=== PATIENT | male | born 1965 | race African-American/Black ===

== ENCOUNTER 2016-06-11 12:11 | Emergency (ER) | payer OTHER ==
[~2016-06-11] VITALS: Ht 182.9 cm; Wt 115.0 kg
[~2016-06-11 12:11] MED LIST: CETI10 PO; CINA30 PO; METO50TA PO; MIRT30TA PO; OMEP20TA39 PO; PAXI20TA26 PO; PERC7.5T13 PO; PYRIDOXINE PO
[2016-06-11 12:26] VITALS: BP 137/84; PULSE 99; RESP 20; TEMP 98.9; O2SAT 93
[2016-06-11 12:30] VITALS: BP 152/88; PULSE 99; RESP 18; TEMP 98.9; O2SAT 94
[2016-06-11] MEDS ORDERED: oxyCODONE/ACETAMINOPHEN 5 MG/325 MG TAB PO ONE (12:45)
[2016-06-11] MEDS ORDERED: ONDANSETRON HCL 4 MG/2 ML VIAL IV PUSH ONE (12:45)
[2016-06-11 13:07] LABS: AUTOMATED NEUTROPHIL # 8.5 TH/MM3 (1.8-7.7); BASOPHIL % 0.2 % (0.0-2.0); EOSINOPHIL # 0.2 TH/MM3 (0-0.4); EOSINOPHIL % 1.8 % (0.0-4.0); HEMATOCRIT 29.9 % (39.0-51.0); HEMO FLAGS DIFF FINAL; LYMPH % 6.8 % (9.0-44.0); LYMPHOCYTE # 0.7 TH/MM3 (1.0-4.8); MEAN CELL VOLUME 97.3 FL (80.0-100.0); MEAN CORPUSCULAR HEMOGLOBIN 31.8 PG (27.0-34.0); MEAN CORPUSCULAR HGB CONC 32.7 % (32.0-36.0); MONO % 7.5 % (0.0-8.0); NEUT % 83.7 % (16.0-70.0); PLATELET COUNT 152 TH/MM3 (150-450); RED BLOOD COUNT 3.07 MIL/MM3 (4.50-5.90); RED CELL DISTRIBUTION WIDTH 14.2 % (11.6-17.2); WHITE BLOOD COUNT 10.1 TH/MM3 (4.0-11.0)
[2016-06-11] MEDS ORDERED: ONDANSETRON ODT 4 MG TAB PO ONE (13:15)
--- NOTE | 2016-06-11 13:18 | RADRPT ---
EXAM DATE/TIME: 06/11/2016 13:16 [facility] COMPARISON: No previous studies available for comparison. INDICATIONS : Fever. Short of breath. MEDICAL HISTORY : Diabetes mellitus type II. Peripheral vascular disease. SURGICAL HISTORY : Renal transplant. ENCOUNTER: Initial ACUITY: 2 days PAIN SCORE: 0/10 LOCATION: Bilateral chest FINDINGS: Linear areas of parenchymal opacity are seen scattered through the right and left lung, probably atel ectasis. Heart is minimally enlarged. Pulmonary vascularity is normal. There is no pleural effusio n or alveolar consolidation. CONCLUSION: Probable atelectatic changes both lungs. Otherwise, negative. Urbano Cordova MD FACR on June 11, 2016 at 13:14 Board Certified Radiologist. This report was verified electronically.
[2016-06-11 13:27] LABS: ALT (GPT) 32 U/L (12-78); ANION GAP 17 MEQ/L (5-15); AST (GOT) 30 U/L (15-37); BICARBONATE 19.9 MEQ/L (21.0-32.0); BLOOD UREA NITROGEN 76 MG/DL (7-18); CHLORIDE 100 MEQ/L (98-107); GLOMERULAR FILTRATION RATE 3 ML/MIN (>89); SODIUM (NA) 137 MEQ/L (136-145)
[2016-06-11 13:28] LABS: ALKALINE PHOSPHATASE 183 U/L (45-117); TOTAL BILIRUBIN ADULT 0.4 MG/DL (0.2-1.0)
[2016-06-11 13:30] LABS: POTASSIUM 5.3 MEQ/L (3.5-5.1)
--- NOTE | 2016-06-11 13:50 | RADRPT ---
EXAM DATE/TIME: 06/11/2016 13:13 [facility] COMPARISON: No previous studies available for comparison. INDICATIONS : Cephalgia, fever, nausea after procedure to remove clot from dialysis shunt. RADIATION DOSE: 56.37 CTDIvol (mGy) MEDICAL HISTORY : Cardiovascular disease. Hypertension. Renal failure, chronic. SURGICAL HISTORY : Left kidney transplant. ENCOUNTER: Initial ACUITY: 1 day PAIN SCALE: 0/10 LOCATION: distal TECHNIQUE: Multiple contiguous axial images were obtained of the head. Using automated exposure control and adj ustment of the mA and/or kV according to patient size, radiation dose was kept as low as reasonably a chievable to obtain optimal diagnostic quality images. FINDINGS: CEREBRUM: The ventricles are normal for age. No evidence of midline shift, mass lesion, hemorrhage or acute in farction. No extra-axial fluid collections are seen. POSTERIOR FOSSA: The cerebellum and brainstem are intact. The 4th ventricle is midline. The cerebellopontine angle i s unremarkable. EXTRACRANIAL: There is high density material within the right globe. This should be correlated clinically if this i s acute or chronic. There is right maxillary, bilateral sphenoid, and bilateral ethmoid sinus disease . There is a small amount of fluid in the left mastoid air cells. SKULL: The calvaria is intact. No evidence of skull fracture. CONCLUSION: 1. No intracranial abnormality seen. 2. High density material throughout the right globe. This should be correlated if this is a known abn ormality were not. If this is acute, it could represent hemorrhage. 3. Sinus disease. Anthony Murdock MD on June 11, 2016 at 13:44 Board Certified Radiologist. This report was verified electronically.
[2016-06-11 14:14] VITALS: RESP 18
[2016-06-11] MEDS ORDERED: diphenhydrAMINE HCL 50 MG/ML VIAL IV PUSH ONE (14:30)
[2016-06-11] MEDS ORDERED: PROCHLORPERAZINE INJ 10 MG/2 ML VIAL IVS ONE (14:30)
[2016-06-11] MEDS ORDERED: SODIUM CHLOR 0.9% 1000 ML INJ 1,000 ML IV PRN ×3 (15:05)
[2016-06-11] MEDS ORDERED: diphenhydrAMINE HCL 25 MG CAP PO PRN (15:15)
[2016-06-11] MEDS ORDERED: ONDANSETRON HCL 4 MG/2 ML VIAL IV PRN (15:15)
[2016-06-11] MEDS ORDERED: SODIUM CHLORIDE 0.9% FLUSH 5 ML FLUSH IVF PRN (15:15)
[2016-06-11] MEDS ORDERED: cloNIDine HCL 0.1 MG TAB PO PRN (15:15)
[2016-06-11] MEDS ORDERED: HEPARIN SODIUM - IV 10,000 UNITS/10 ML VIAL PRN (15:15)
[2016-06-11] MEDS ORDERED: GELATIN 12 MM/7 MM FOAM TOP PRN (15:15)
[2016-06-11] MEDS ORDERED: HEPARIN SODIUM - IV 10,000 UNITS/10 ML VIAL IVF PRN (15:15)
[2016-06-11] MEDS ORDERED: EPOETIN ALFA 10,000 UNITS/ML VIAL IV PRN (15:15)
[2016-06-11] MEDS ORDERED: MANNITOL 12.5 GM/50 ML VIAL IV PRN (15:15)
[2016-06-11] MEDS ORDERED: NITROGLYCERIN 0.4 MG SL 25 TABS/BTL SL PRN (15:15)
[2016-06-11] MEDS ORDERED: ACETAMINOPHEN 325 MG TAB PO PRN (15:15)
[2016-06-11] MEDS ORDERED: GENTAMICIN SULFATE (DIALYSIS USE ONLY) 20 MG/2 ML VIAL IV PRN (15:15)
--- NOTE | 2016-06-11 15:41 | PD.CONS ---
HPI Service Nephrology Consult Requested By Reason for Consult ESRD on HD Primary Care Physician [facility] History of Present Illness This is out 51 y/o AAM dialysis pt who typically dialyzes T-. He had full treatment on , missed Saturday due to access clotting. He had AV graft declotted successfully this morning, but apparently developed rigors without fever immediately after. He was sent in for evaluation. He denies any recent illnesses. Today he is sleeping but easy to awaken. No acute concerns. K 5.3, C02 19, BG 322 mg/dL. We were consulted for dialysis management. 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 (Sho Laughlin) Review of Systems Constitutional: COMPLAINS OF: Fatigue, Chills, DENIES: Fever Respiratory: DENIES: Shortness of breath Cardiovascular: DENIES: Chest pain, Dyspnea on Exertion Neurologic: DENIES: Abnormal gait (Sho Laughlin) Past Family Social History Allergies: Coded Allergies: Darvocet-N 100 (Verified Allergy, Severe, Itching, 11/21/15) Demerol (Verified Allergy, Severe, Itching, 11/21/15) Morphine (Verified Allergy, Severe, Itching, 11/21/15) Lisinopril (Verified Adverse Reaction, Severe, Cough, 11/21/15) Past Medical History ESRD on HD T--Sat anemia of chronic disease metabolic bone disorder DM II anxiety depression Past Surgical History RUE AV graft, declotted multiple times Reported Medications unable to list medications Active Ordered Medications Current Medications Medications (Trade) Dose Ordered Sig/Suzan Route Start Time Stop Time Status Last Admin (NS 1000 ml Inj) 1,000 ml @ 0 mls/hr Q0M PRN IV 06/11/16 15:05 Heparin Sodium (Porcine) 8000 units 8,000 units UNSCH PRN IVF 06/11/16 15:15 Sodium Chloride 1,000 ml @ 200 mls/hr Q5H PRN IV 06/11/16 15:05 (NS 1000 ml Inj) 1,000 ml @ 0 mls/hr Q0M PRN IV 06/11/16 15:05 (Mannitol Inj) 12.5 gm UNSCH PRN IV 06/11/16 15:15 (Albumin 25% Inj) 25 gm UNSCH PRN IV 06/11/16 15:15 (NS Flush) 5 ml UNSCH PRN IVF 06/11/16 15:15 (Heparin Inj) UNSCH PRN .XX 06/11/16 15:15 (Gentamicin (Dialysis) Inj) 20 mg UNSCH PRN IV 06/11/16 15:15 (Zofran Inj) 4 mg UNSCH PRN IV 06/11/16 15:15 (Tylenol) 650 mg UNSCH PRN PO 06/11/16 15:15 (Benadryl) 25 mg UNSCH PRN PO 06/11/16 15:15 (Nitrostat Sl) 0.4 mg UNSCH PRN SL 06/11/16 15:15 (Catapres) 0.1 mg UNSCH PRN PO 06/11/16 15:15 (Epogen Inj) 10,000 units UNSCH PRN IV 06/11/16 15:15 (Gelfoam 12 Mm/7 Mm Top) 1 foam UNSCH PRN TOP 06/11/16 15:15 Family History no hx of renal disorders Social History no smoking or ETOH , lives with retired [employer] functionally independent full code (Sho Laughlin) Physical Exam Vital Signs Vital Signs Date Time Temp Pulse Resp B/P Pulse Ox O2 Delivery O2 Flow Rate FiO2 06/11/16 14:14 18 06/11/16 12:30 97 20 93 Room Air 06/11/16 12:30 98.9 99 18 152/88 94 Room Air 06/11/16 12:26 98.9 99 20 137/84 93 Physical Exam Young appearing AAM, resting on stretcher left eye conjunctival hemorrhage lungs clear S1/S2, regular rhythm no edema RUE AV graft, + thrill/bruit abdomen soft, normal bowel sounds Laboratory Laboratory Tests Test 06/11/16 12:55 White Blood Count 10.1 Red Blood Count 3.07 Hemoglobin 9.8 Hematocrit 29.9 Mean Corpuscular Volume 97.3 Mean Corpuscular Hemoglobin 31.8 Mean Corpuscular Hemoglobin 32.7 Concent Red Cell Distribution Width 14.2 Platelet Count 152 Mean Platelet Volume 9.3 Neutrophils (%) (Auto) 83.7 Lymphocytes (%) (Auto) 6.8 Monocytes (%) (Auto) 7.5 Eosinophils (%) (Auto) 1.8 Basophils (%) (Auto) 0.2 Neutrophils # (Auto) 8.5 Lymphocytes # (Auto) 0.7 Monocytes # (Auto) 0.8 Eosinophils # (Auto) 0.2 Basophils # (Auto) 0.0 CBC Comment DIFF FINAL Differential Comment Sodium Level 137 Potassium Level 5.3 Chloride Level 100 Carbon Dioxide Level 19.9 Anion Gap 17 Blood Urea Nitrogen 76 Creatinine 17.60 Estimat Glomerular Filtration 3 Rate Random Glucose 382 Calcium Level 9.8 Total Bilirubin 0.4 Aspartate Amino Transf 30 (AST/SGOT) Alanine Aminotransferase 32 (ALT/SGPT) Alkaline Phosphatase 183 Total Protein 7.7 Albumin 3.4 (Sho Laughlin) Result Diagram: 06/11/16 1255 06/11/16 1255 Assessment and Plan Problem List: (1) ESRD (end stage renal disease) on dialysis Plan: dialysis today and T-Th-Sat, orders entered K 5.3, follow up BMP tomorrow acidosis should correct with dialysis avoid gadolinium, IVF (2) Rigors Plan: after AVG declotting no fever, may need infection work up could be due to anesthesia (3) DM (diabetes mellitus) Plan: begin insulin therapy, goal 140-180 mg/dL (4) HTN (hypertension) Plan: continue home medications (5) Anemia Plan: epogen with HD (6) Metabolic bone disease Plan: contineu PhosLo per home medications check phos in am (Sho Laughlin) Assessment and Plan patient was seen and examined. No fever in the hospital. Tolerated dialysis well , he was seen during dialysis. Likely will be discharged after dialysis. ( George Childs MD) Sho Laughlin Jun 11, 2016 15:41 George Childs MD Jun 11, 2016 21:17
[2016-06-11] MEDS: ALBUMIN HUMAN 25% 25 GM/100 ML BAGP IV PRN ×2 (16:58→16:59)
[2016-06-11] MEDS ORDERED: CALCIUM ACETATE 667 MG CAP PO SCH (18:00)
--- NOTE | 2016-06-11 19:33 | PD ---
HPI Chief Complaint: Headache Time Seen by Provider: 12:34 Travel History International Travel<30 days: No Contact w/Intl Traveler<30days: No Traveled to known affect area: No History of Present Illness HPI Patient is a 51-year-old male who comes in from the dialysis Center where he was having a clot removed from his fistula. During the procedure he had an episode of rigors and they were concerned he had a fever so they sent him to the emergency department. He has not had any documented fever. He says he was feeling fine prior to going for the procedure. He did receive some sedation for the procedure as well as fentanyl. He had several episodes of vomiting after the procedure. Currently his only complaint is headache. He has not been dialyzed since because of the clot to his fistula. He denies any chest pain or shortness of breath. He denies any abdominal pain. PFSH Past Medical History Anemia: Yes (WITH CHRONIC KIDNEY DISEASE) Arthritis: No Asthma: No Autoimmune Disease: No Anxiety: Yes Depression: Yes Heart Rhythm Problems: No Cancer: No Cardiac Catheterization: Yes Cardiovascular Problems: Yes ([place]) High Cholesterol: No Chest Pain: No Congestive Heart Failure: Yes COPD: No Coronary Artery Disease: Yes Diabetes: Yes Patient Takes Glucophage: No Dialysis: Yes () Diminished Hearing: No Endocrine: No Gastrointestinal Disorders: Yes (REFLUX) GERD: Yes Genitourinary: Yes Hepatitis: No Hiatal Hernia: No Hypertension: Yes Immune Disorder: No Implanted Vascular Access Dvce: Yes (FISTULA RUE) Kidney Stones: No Musculoskeletal: No Neurologic: No Psychiatric: No Reproductive: No Respiratory: No Immunizations Current: Yes Myocardial Infarction: Yes Renal Failure: Yes Sickle Cell Disease: No Sleep Apnea: No Thyroid Disease: No Ulcer: No Tetanus Vaccination: < 5 Years Influenza Vaccination: Yes ?: Not Past Surgical History Abdominal Surgery: Yes (APPEND., ) AICD: No Appendectomy: Yes Arteriovenous Shunt: Yes (old graft) Body Medical Devices: GRAFT BOTH ARMS Cardiac Surgery: No Ear Surgery: No Endocrine Surgery: Yes (av shunt right current, former av shunt site left arm) Eye Surgery: Yes (RIGHT RETINA REPAIR) Genitourinary Surgery: Yes (BILATERAL NEPHRECTOMY, LEFT FRONT KIDNEY TRANSPLANT ) Gynecologic Surgery: No Insulin Pump: No Joint Replacement: No Neurologic Surgery: No Oral Surgery: Yes (TONSILS) Pacemaker: No Thoracic Surgery: No Tonsillectomy: Yes Other Surgery: Yes (GRAFT FOR DIALYSIS, AV FISTULA RIGHT UPPER ARM) Social History Alcohol Use: No Tobacco Use: No Substance Use: No Allergies-Medications (Allergen,Severity, Reaction): Coded Allergies: Darvocet-N 100 (Verified Allergy, Severe, Itching, 11/21/15) Demerol (Verified Allergy, Severe, Itching, 11/21/15) Morphine (Verified Allergy, Severe, Itching, 11/21/15) Lisinopril (Verified Adverse Reaction, Severe, Cough, 11/21/15) Reported Meds & Prescriptions Reported Meds & Active Scripts Active Percocet 7.5-325 mg (Oxycodone-Acetaminophen 7.5-325 mg) 1 Tab 1 Tab PO Q4HR FOR PAIN Reported [Peperidoxine Hcl] 500 Mg PO DAILY Metoprolol Tartrate 50 mg (Metoprolol Tartrate) 50 Mg Tab 100 Mg PO BID Sensipar 30 mg (Cinacalcet) 30 Mg Tab 30 Mg PO HS Paxil (Paroxetine HCl) 20 Mg Tab 20 Mg PO HS Mirtazapine 30 Mg Tab 45 Mg PO HS Hm Omeprazole (Omeprazole) 20 Mg Tab 20 Mg PO BID Cetirizine Hcl 10 Mg Tab 10 Mg PO DAILY Review of Systems Except as stated in HPI: all other systems reviewed are Neg General / Constitutional: Positive: Chills, No: Fever Eyes: No: Blurred Vision HENT: Positive: Headaches Cardiovascular: No: Chest Pain or Discomfort Respiratory: No: Shortness of Breath Gastrointestinal: No: Abdominal Pain Musculoskeletal: No: Weakness, Edema Skin: No Rash, No Change in Pigmentation Neurologic: No: Weakness, Dizziness Physical Exam Narrative GENERAL: Awake and alert, in no acute distress. SKIN: Warm and dry. HEAD: Atraumatic. Normocephalic. EYES: Pupils equal and round. No scleral icterus. ENT: Mucous membranes pink and moist. NECK: Trachea midline. No JVD. CARDIOVASCULAR: Regular rate and rhythm. No murmur appreciated. RESPIRATORY: No accessory muscle use. Clear to auscultation. Breath sounds equal bilaterally. GASTROINTESTINAL: Abdomen soft, non-tender, nondistended. MUSCULOSKELETAL: No obvious deformities. No clubbing. No cyanosis. No edema. NEUROLOGICAL: Awake and alert. No obvious cranial nerve deficits. Motor grossly within normal limits. Normal speech. PSYCHIATRIC: Appropriate mood and affect; insight and judgment normal. Data Data Last Documented VS Vital Signs Date Time Temp Pulse Resp B/P Pulse Ox O2 Delivery O2 Flow Rate FiO2 06/11/16 14:14 18 06/11/16 12:30 97 93 Room Air 06/11/16 12:30 98.9 152/88 Orders Complete Blood Count With Diff (06/11/16 12:35) Comprehensive Metabolic Panel (06/11/16 12:35) Electrocardiogram (06/11/16 ) Chest, Pa & Lat (06/11/16 ) Ct Brain W/O Iv Contrast(Rout) (06/11/16 ) Ondansetron Inj (Zofran Inj) (06/11/16 12:45) Oxycodone-Acetamin 5-325 Mg (Percocet (06/11/16 12:45) Vascular Access Team Consult PRN (06/11/16 12:55) Ondansetron Odt (Zofran Odt) (06/11/16 13:15) Vascular Poc Ultrasound (06/11/16 ) Diphenhydramine Inj (Benadryl Inj) (06/11/16 14:30) Prochlorperazine Inj (Compazine Inj) (06/11/16 14:30) ^ Blood Flow Rate (06/11/16 15:05) ^ Dialysate Flow Rate (06/11/16 15:05) ^ Dialyzer (06/11/16 15:05) ^ Concentrate (06/11/16 15:05) ^ Acid Concentrate (06/11/16 15:05) ^ Length Of Dialysis (06/11/16 15:05) ^ Frequency Of Dialysis (06/11/16 15:05) ^ Dialysis Obtain (06/11/16 15:05) ^ Needle Size (06/11/16 15:05) ^ Dialysis Schedule (06/11/16 15:05) Resp Oxygen Brandon C Titrat 1-4 L (06/11/16 ) ^ Dialysis Weight (06/11/16 15:05) ^ Obtain As Needed (06/11/16 15:05) Sodium Chlor 0.9% 1000 Ml Inj (Ns 1000 M (06/11/16 15:05) Heparin Inj (Heparin Inj) (06/11/16 15:15) Sodium Chlor 0.9% 1000 Ml Inj (Ns 1000 M (06/11/16 15:05) Sodium Chlor 0.9% 1000 Ml Inj (Ns 1000 M (06/11/16 15:05) Mannitol Inj (Mannitol Inj) (06/11/16 15:15) Albumin 25% Inj (Albumin 25% Inj) (06/11/16 15:15) Sodium Chloride 0.9% Flush (Ns Flush) (06/11/16 15:15) Heparin Inj (Heparin Inj) (06/11/16 15:15) Gentamicin (Dialysis) Inj (Gentamicin (D (06/11/16 15:15) Ondansetron Inj (Zofran Inj) (06/11/16 15:15) Acetaminophen (Tylenol) (06/11/16 15:15) Diphenhydramine (Benadryl) (06/11/16 15:15) Nitroglycerin Sl (Nitrostat Sl) (06/11/16 15:15) Clonidine (Catapres) (06/11/16 15:15) Epoetin Jesus Inj (Epogen Inj) (06/11/16 15:15) Gelatin 12 Mm/7 Mm Top (Gelfoam 12 Mm/7 (06/11/16 15:15) Calcium Acetate (Phoslo) (06/11/16 18:00) Renal Functional Panel (06/12/16 06:00) Labs Laboratory Tests Test 06/11/16 12:55 White Blood Count 10.1 TH/MM3 Red Blood Count 3.07 MIL/MM3 Hemoglobin 9.8 GM/DL Hematocrit 29.9 % Mean Corpuscular Volume 97.3 FL Mean Corpuscular Hemoglobin 31.8 PG Mean Corpuscular Hemoglobin 32.7 % Concent Red Cell Distribution Width 14.2 % Platelet Count 152 TH/MM3 Mean Platelet Volume 9.3 FL Neutrophils (%) (Auto) 83.7 % Lymphocytes (%) (Auto) 6.8 % Monocytes (%) (Auto) 7.5 % Eosinophils (%) (Auto) 1.8 % Basophils (%) (Auto) 0.2 % Neutrophils # (Auto) 8.5 TH/MM3 Lymphocytes # (Auto) 0.7 TH/MM3 Monocytes # (Auto) 0.8 TH/MM3 Eosinophils # (Auto) 0.2 TH/MM3 Basophils # (Auto) 0.0 TH/MM3 CBC Comment DIFF FINAL Differential Comment Sodium Level 137 MEQ/L Potassium Level 5.3 MEQ/L Chloride Level 100 MEQ/L Carbon Dioxide Level 19.9 MEQ/L Anion Gap 17 MEQ/L Blood Urea Nitrogen 76 MG/DL Creatinine 17.60 MG/DL Estimat Glomerular Filtration 3 ML/MIN Rate Random Glucose 382 MG/DL Calcium Level 9.8 MG/DL Total Bilirubin 0.4 MG/DL Aspartate Amino Transf 30 U/L (AST/SGOT) Alanine Aminotransferase 32 U/L (ALT/SGPT) Alkaline Phosphatase 183 U/L Total Protein 7.7 GM/DL Albumin 3.4 GM/DL [facility] Medical Decision Making Medical Screen Exam Complete: Yes Emergency Medical Condition: Yes Medical Record Reviewed: Yes Interpretation(s) ECG shows sinus rhythm at 90, no ST elevation or depression, no peaked T waves. Differential Diagnosis Tension headache versus ICH versus electrolyte abnormality Narrative Course Patient is a 51 year old male who comes in from the dialysis center after an episode of rigors during a procedure. His exam shows no acute abnormalities, he is afebrile. IV established, labs sent. CT head performed shows hyperdense material in right orbit, no ICH. Patient has history of retinal detachment in this eye that explains this finding. Labs show an elevated CR, potassium is 5.3. Patient was taken to dialysis. He was given percocet and zofran. He reports feeling better after dialysis. I spoke with Dr. Solano, his ammonium nitrate neutralizer who agrees with discharge at this time. Patient is comfortable with discharge at this time. Advised to follow up with his doctors. Advised to return to the ED as needed for any worsening symptoms. Diagnosis Primary Impression: Head ache Qualified Code: R51 - Acute nonintractable headache, unspecified headache type Patient Instructions: Acute Headache (ED), General Instructions Additional Instructions: Follow up with your doctor. Return to the ED as needed for any worsening symptoms. Disposition: 01 DISCHARGE HOME Condition: Stable Mary Pollock MD Jun 11, 2016 19:33
--- NOTE | 2016-06-12 14:55 | EKG ---
Date Performed: 06/11/2016 Time Performed: 13:10:07 PTAGE: 51 years EKG: Sinus rhythm LOW QRS VOLTAGE IN EXTREMITY LEADS POSSIBLE ANTERIOR MYOCARDIAL INFARCTION Compared to prior tracing no significant change ABNORMAL ECG PREVIOUS TRACING : 05/11/2014 17.11 DOCTOR: Shubham Charles Interpretating Date/Time 06/12/2016 14:51:56
== END 2016-06-11 19:59 | disposition home or self-care (01) ==
LOC: NEPE 12:11
DX: R51 Headache (principal); E87.5 Hyperkalemia; R50.9 Fever, unspecified; R06.02 Shortness of breath; E11.22 Type 2 diabetes mellitus with diabetic chronic kidney disease; I12.0 Hypertensive chronic kidney disease with stage 5 chronic kidney disease or end stage renal disease; N18.6 End stage renal disease; Z99.2 Dependence on renal dialysis; R94.31 Abnormal electrocardiogram [ECG] [EKG]
CPT/HCPCS: 70450; 71020; 80053; 85025; 93005; 96374; 96375; 99285; G0257; J0780; J1200; J7030; P9047; Q4081; 90935

== ENCOUNTER 2016-08-03 11:35 | Inpatient (IN) | payer OTHER ==
[~2016-08-03] VITALS: Ht 182.9 cm; Wt 113.7 kg
[2016-08-03] VITALS (8 sets, daily range): BP systolic 145–169; BP diastolic 72–94; PULSE 78–111; RESP 16–26; TEMP 98.3–98.5; O2SAT 97–100
[2016-08-03] MEDS ORDERED: ZYRT10TA PO (11:57)
[2016-08-03] MEDS ORDERED: CINA30 PO (11:57)
[2016-08-03] MEDS ORDERED: PARO40TA2 PO (11:57)
[2016-08-03] MEDS ORDERED: OMEP20TA PO (11:57)
[2016-08-03] MEDS ORDERED: MIRT45TA PO (11:57)
[2016-08-03] MEDS ORDERED: ATOR20TA15 PO (11:57)
[2016-08-03] MEDS ORDERED: DIAZ2TAB PO (11:57)
[2016-08-03] MEDS ORDERED: HYDR-3535 PO (11:57)
[2016-08-03] MEDS ORDERED: ASPI1TAB69 PO (11:57)
[2016-08-03] MEDS ORDERED: LANTUS2P SQ (11:58)
[2016-08-03] MEDS ORDERED: NOVOLOGP2 SQ (11:58)
--- NOTE | 2016-08-03 12:22 | PD ---
HPI Chief Complaint: Altered Mental Status Time Seen by Provider: 11:54 Travel History International Travel<30 days: No Contact w/Intl Traveler<30days: No Traveled to known affect area: No History of Present Illness HPI Patient is a 51-year-old male with history of end-stage renal disease on hemodialysis who presents to emergency room with his for evaluation of altered mental status. Patient reports that he has history of end-stage renal disease and is currently on hemodialysis every Tuesdays, and Saturdays. Patient does see Dr. Gore in the office for this. Patients reports that about a month ago, patient had medications for sedation as he needed stents in his right-sided AV fistula placed. Reports that the day after he received medications for sedation, patient began to act altered. 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 Patient denies any new drugs or any new medications, reports that when this happens, symptoms only last for 10 days to 2 weeks, reports that symptoms usually resolve on its own. Patient reports that symptoms have been ongoing and the last time it's been "this bad" was in 2005 in [place]. Patient denies any headache or dizziness, denies any chest pain or shortness of breath. Patient did receive his dialysis yesterday as scheduled. Patient does not make any urine at this time. Patient with no fevers or chills, patient denies any abdominal pain, nausea or vomiting. PFSH Past Medical History Anemia: Yes (WITH CHRONIC KIDNEY DISEASE) Arthritis: No Asthma: No Autoimmune Disease: No Anxiety: Yes Depression: Yes Heart Rhythm Problems: No Cancer: No Cardiac Catheterization: Yes Cardiovascular Problems: Yes (MT) High Cholesterol: No Chest Pain: No Congestive Heart Failure: Yes COPD: No Coronary Artery Disease: Yes Diabetes: Yes Patient Takes Glucophage: No Dialysis: Yes () Diminished Hearing: No Endocrine: No Gastrointestinal Disorders: Yes (REFLUX) GERD: Yes Genitourinary: Yes Hepatitis: No Hiatal Hernia: No Hypertension: Yes Immune Disorder: No Implanted Vascular Access Dvce: Yes (FISTULA RUE) Kidney Stones: No Medical other: Yes (MEDICATION INDUCED DIMINTIA) Musculoskeletal: No Neurologic: No Psychiatric: No Reproductive: No Respiratory: No Immunizations Current: Yes Myocardial Infarction: Yes Renal Failure: Yes Sickle Cell Disease: No Sleep Apnea: No Thyroid Disease: No Ulcer: No Tetanus Vaccination: < 5 Years Influenza Vaccination: Yes Past Surgical History Abdominal Surgery: Yes (APPEND., ) AICD: No Appendectomy: Yes Arteriovenous Shunt: Yes (old graft) Body Medical Devices: GRAFT BOTH ARMS Cardiac Surgery: No Ear Surgery: No Endocrine Surgery: Yes (av shunt right current, former av shunt site left arm) Eye Surgery: Yes (RIGHT RETINA REPAIR) Genitourinary Surgery: Yes (BILATERAL NEPHRECTOMY, LEFT FRONT KIDNEY TRANSPLANT ) Gynecologic Surgery: No Insulin Pump: No Joint Replacement: No Neurologic Surgery: No Oral Surgery: Yes (TONSILS) Pacemaker: No Thoracic Surgery: No Tonsillectomy: Yes Other Surgery: Yes (GRAFT FOR DIALYSIS, AV FISTULA RIGHT UPPER ARM) Social History Alcohol Use: No Tobacco Use: Yes (2 CIG DAILY) Substance Use: No Allergies-Medications (Allergen,Severity, Reaction): Coded Allergies: Darvocet-N 100 (Verified Allergy, Severe, Itching, 08/03/16) Demerol (Verified Allergy, Severe, Itching, 08/03/16) Morphine (Verified Allergy, Severe, Itching, 08/03/16) Lisinopril (Verified Adverse Reaction, Severe, Cough, 08/03/16) Reported Meds & Prescriptions Reported Meds & Active Scripts Active Reported Novolog Inj (Insulin Aspart) 1,000 Unit/10 Ml Vial 0 SQ DIRECTED Sliding Scale as directed. Lantus Inj (Insulin Glargine) 1,000 Unit/10 Ml Vial 16 Units SQ HS Diazepam 2 Mg Tab 2 Mg PO DIRECTED PRN Lortab (Hydrocodone-Acetaminophen) 10-325 Mg Tab 1 Tab PO Q6H PRN Zyrtec Allergy (Cetirizine HCl) 10 Mg Tab 10 Mg PO DAILY Omeprazole 20 Mg Tab 20 Mg PO BID Mirtazapine 45 Mg Tab 45 Mg PO HS Sensipar (Cinacalcet) 30 Mg Tab 30 Mg PO DAILY Paroxetine (Paroxetine HCl) 40 Mg Tab 0.5 Tab PO DAILY Aspirin 81 Mg Tabdr 81 Mg PO DAILY Atorvastatin (Atorvastatin Calcium) 20 Mg Tab 0.5 Tab PO HS Review of Systems ROS Limitations: Altered Mental Status General / Constitutional: No: Fever Eyes: No: Visual changes HENT: No: Headaches Cardiovascular: Positive: Palpitations, No: Chest Pain or Discomfort Respiratory: No: Shortness of Breath Gastrointestinal: No: Abdominal Pain Genitourinary: No: Dysuria Musculoskeletal: No: Pain Skin: No Rash Neurologic: No: Weakness Psychiatric: Positive: Anxiety, No: Depression Endocrine: No: Polydipsia Hematologic/Lymphatic: No: Easy Bruising Physical Exam Narrative GENERAL: Mild distress SKIN: Focused skin assessment warm/dry. HEAD: Atraumatic. Normocephalic. EYES: Pupils equal and round. No scleral icterus. No injection or drainage. ENT: No nasal bleeding or discharge. Mucous membranes pink and moist. NECK: Trachea midline. No JVD. CARDIOVASCULAR: Regular rate and rhythm. No murmur appreciated. RESPIRATORY: No accessory muscle use. Clear to auscultation. Breath sounds equal bilaterally. GASTROINTESTINAL: Abdomen soft, non-tender, nondistended. Hepatic and splenic margins not palpable. MUSCULOSKELETAL: No obvious deformities. No clubbing. No cyanosis. No edema. Patient with right-sided AV fistula with good thrill NEUROLOGICAL: Awake and alert. No obvious cranial nerve deficits. Motor grossly within normal limits. Normal speech. PSYCHIATRIC: Patient anxious on exam Data Data Last Documented VS Vital Signs Date Time Temp Pulse Resp B/P Pulse Ox O2 Delivery O2 Flow Rate FiO2 08/03/16 13:42 95 16 156/84 97 Room Air 08/03/16 11:37 98.3 Orders Electrocardiogram (08/03/16 12:45) B-Type Natriuretic Peptide (08/03/16 12:45) Ckmb (Isoenzyme) Profile (08/03/16 12:45) Complete Blood Count With Diff (08/03/16 12:45) Comprehensive Metabolic Panel (08/03/16 12:45) Magnesium (Mg) (08/03/16 12:45) Prothrombin Time / Inr (Pt) (08/03/16 12:45) Act Partial Throm Time (Ptt) (08/03/16 12:45) Troponin I (08/03/16 12:45) Lipase (08/03/16 12:45) Chest, Single Ap (08/03/16 12:45) Ecg Monitoring (08/03/16 12:45) Iv Access Insert/Monitor (08/03/16 12:45) Oximetry (08/03/16 12:45) Sodium Chloride 0.9% Flush (Ns Flush) (08/03/16 12:45) Ct Brain W/O Iv Contrast(Rout) (08/03/16 12:45) Consult Neurosurgery (08/03/16 ) Admit Order (Ed Use Only) (08/03/16 13:57) Labs Laboratory Tests Test 08/03/16 13:15 White Blood Count 5.2 TH/MM3 Red Blood Count 3.01 MIL/MM3 Hemoglobin 9.4 GM/DL Hematocrit 28.8 % Mean Corpuscular Volume 95.4 FL Mean Corpuscular Hemoglobin 31.1 PG Mean Corpuscular Hemoglobin 32.6 % Concent Red Cell Distribution Width 13.5 % Platelet Count 227 TH/MM3 Mean Platelet Volume 6.9 FL Neutrophils (%) (Auto) 61.3 % Lymphocytes (%) (Auto) 22.9 % Monocytes (%) (Auto) 10.6 % Eosinophils (%) (Auto) 4.8 % Basophils (%) (Auto) 0.4 % Neutrophils # (Auto) 3.2 TH/MM3 Lymphocytes # (Auto) 1.2 TH/MM3 Monocytes # (Auto) 0.5 TH/MM3 Eosinophils # (Auto) 0.2 TH/MM3 Basophils # (Auto) 0.0 TH/MM3 CBC Comment DIFF FINAL Differential Comment Sodium Level 137 MEQ/L Potassium Level 5.0 MEQ/L Chloride Level 100 MEQ/L Carbon Dioxide Level 25.9 MEQ/L Anion Gap 11 MEQ/L Calcium Level 8.7 MG/DL B-Type Natriuretic Peptide 37 PG/ML Albumin 3.4 GM/DL Lipase 121 U/L [facility] Medical Decision Making Medical Screen Exam Complete: Yes Emergency Medical Condition: Yes Interpretation(s) EKG at 1247: NSR at 95bpm, qt/qtc: 354/415, no acute st or t wave changes Vital Signs Date Time Temp Pulse Resp B/P Pulse Ox O2 Delivery O2 Flow Rate FiO2 08/03/16 11:49 98 100 Room Air 08/03/16 11:37 98.3 111 18 146/94 98 Differential Diagnosis Electrolyte abnormality, medication induced dementia, uremia, infection Narrative Course Patient is a 51-year-old male with hx of ESRD on HD //Saturdays, who presents to emergency room for evaluation of altered mental status. reports that patient has not been acting like his normal self since the day after he received sedation from stent placement to right sided AV fistula. Reports that he appears more confused and anxious than normal. Reports that he is more paranoid then he normally is and reports that the last time this happened, it was 2005 and in [place]. Reports that at that time, he was placed in an inpatient psych facility, and was taken out of the psych facility as they reported that he had no psych diagnosis and his symptoms were most likely medication induced dementia. reports that she has had similar episodes in the past few years which only last 10 days to 2 weeks , reports that symptoms have been persistent. Patient nontoxic on evaluation, plan to obtain labs and studies and will monitor Laboratory Tests Test 08/03/16 13:15 White Blood Count 5.2 TH/MM3 (4.0-11.0) Red Blood Count 3.01 MIL/MM3 (4.50-5.90) Hemoglobin 9.4 GM/DL (13.0-17.0) Hematocrit 28.8 % (39.0-51.0) Mean Corpuscular Volume 95.4 FL (80.0-100.0) Mean Corpuscular Hemoglobin 31.1 PG (27.0-34.0) Mean Corpuscular Hemoglobin 32.6 % Concent (32.0-36.0) Red Cell Distribution Width 13.5 % (11.6-17.2) Platelet Count 227 TH/MM3 (150-450) Mean Platelet Volume 6.9 FL (7.0-11.0) Neutrophils (%) (Auto) 61.3 % (16.0-70.0) Lymphocytes (%) (Auto) 22.9 % (9.0-44.0) Monocytes (%) (Auto) 10.6 % (0.0-8.0) Eosinophils (%) (Auto) 4.8 % (0.0-4.0) Basophils (%) (Auto) 0.4 % (0.0-2.0) Neutrophils # (Auto) 3.2 TH/MM3 (1.8-7.7) Lymphocytes # (Auto) 1.2 TH/MM3 (1.0-4.8) Monocytes # (Auto) 0.5 TH/MM3 (0-0.9) Eosinophils # (Auto) 0.2 TH/MM3 (0-0.4) Basophils # (Auto) 0.0 TH/MM3 (0-0.2) CBC Comment DIFF FINAL Differential Comment Sodium Level 137 MEQ/L (136-145) Potassium Level 5.0 MEQ/L (3.5-5.1) Chloride Level 100 MEQ/L (98-107) Carbon Dioxide Level 25.9 MEQ/L (21.0-32.0) Anion Gap 11 MEQ/L (5-15) Calcium Level 8.7 MG/DL (8.5-10.1) Albumin 3.4 GM/DL (3.4-5.0) Lipase 121 U/L (73-393) CT of head with focal area hemorrhage with surrounding edema vs hemorrhagic mass , recommends MRI case reviewed with DERIK Christy for Dr. Meek, request admission to [facility], will see him when he gets there, plan for MRI's at [facility] Consult placed for Dr. Meek case reviewed with dr. romo who accept pt to service Critical Care Narrative Aggregate critical care time was 30 minutes. Time to perform other separately billable procedures was not included in the critical care time. My time did not include minutes spent treating any other patients simultaneously or on activities that did not directly contribute to the patient's treatment. The services I provided to this patient were to treat and/or prevent clinically significant deterioration that could result in: , decompensation, deterioration I provided critical care services requiring my management, as noted below: Chart data review, documentation time, medication orders and management, vital sign assessments/reviewing monitor data, ordering and reviewing lab tests, ordering and interpreting/reviewing x-rays and diagnostic studies, care of the patient and discussion of the patient with the admitting physicians. Procedures Procedure Narrative right internal jugular vascular access procedure: Patient was placed in Trendelenburg position, a 20-gauge Angiocath was placed to the right internal jugular vein without difficulty Patient tolerated procedure well Diagnosis Primary Impression: Intraparenchymal hemorrhage of brain Additional Impressions: Altered mental status Hyperglycemia Admitting Information Admitting Physician Requests: Mili Guevara DO August 03, 2016 12:22
[2016-08-03] MEDS ORDERED: SODIUM CHLORIDE 0.9% FLUSH 10 ML FLUSH IVF PRN (12:45)
[2016-08-03 13:25] LABS: AUTOMATED NEUTROPHIL # 3.2 TH/MM3 (1.8-7.7); BASOPHIL % 0.4 % (0.0-2.0); EOSINOPHIL # 0.2 TH/MM3 (0-0.4); EOSINOPHIL % 4.8 % (0.0-4.0); HEMATOCRIT 28.8 % (39.0-51.0); HEMO FLAGS DIFF FINAL; LYMPH % 22.9 % (9.0-44.0); LYMPHOCYTE # 1.2 TH/MM3 (1.0-4.8); MEAN CELL VOLUME 95.4 FL (80.0-100.0); MEAN CORPUSCULAR HEMOGLOBIN 31.1 PG (27.0-34.0); MEAN CORPUSCULAR HGB CONC 32.6 % (32.0-36.0); MONO % 10.6 % (0.0-8.0); NEUT % 61.3 % (16.0-70.0); PLATELET COUNT 227 TH/MM3 (150-450); RED BLOOD COUNT 3.01 MIL/MM3 (4.50-5.90); RED CELL DISTRIBUTION WIDTH 13.5 % (11.6-17.2); WHITE BLOOD COUNT 5.2 TH/MM3 (4.0-11.0)
--- NOTE | 2016-08-03 13:29 | RADHPO ---
EXAM DATE/TIME: 08/03/2016 13:06 [facility] COMPARISON: CHEST PA & LAT, June 11, 2016, 13:16. INDICATIONS : Patient states anxiety. MEDICAL HISTORY : None. SURGICAL HISTORY : None. ENCOUNTER: Initial ACUITY: 1 week PAIN SCORE: 0/10 LOCATION: Bilateral chest FINDINGS: The heart is normal in size. There is some subtle areas of atelectatic change at the left lung base. This is improved compared to previous dated 06/11/16. There is no pneumothorax. The visualized bony st ructures are grossly intact. CONCLUSION: 1. No acute cardiopulmonary findings. Radu Cordova MD on August 03, 2016 at 13:26 Board Certified Radiologist. This report was verified electronically.
--- NOTE | 2016-08-03 13:32 | RADHPO ---
EXAM DATE/TIME: 08/03/2016 13:15 [facility] COMPARISON: CT BRAIN W/O CONTRAST, June 11, 2016, 13:13. INDICATIONS : Altered mental status x 1 month, worse today. RADIATION DOSE: 62.81 CTDIvol (mGy) MEDICAL HISTORY : Diabetes mellitus type 2. Congestive heart failure. Renal failure, chronic.Hypertension. SURGICAL HISTORY : Left renal transplant. ENCOUNTER: Initial ACUITY: 1 month PAIN SCALE: 0/10 LOCATION: cranial TECHNIQUE: Multiple contiguous axial images were obtained of the head. Using automated exposure control and adj ustment of the mA and/or kV according to patient size, radiation dose was kept as low as reasonably a chievable to obtain optimal diagnostic quality images. FINDINGS: The examination demonstrates a focal area of intraparenchymal hemorrhage in the watershed distributio n between the right parieto-occipital cortex. Primary consideration would be a hemorrhagic area of in farct however, MRI imaging to exclude underlying mass is warranted. No other lesions are seen within the brain parenchyma. The ventricles are normal in size and configuration. No significant extra-axial hemorrhage is present . The appearance of the posterior fossa is unremarkable. The osseous structures of the skull are intact. CONCLUSION: 1. Focal area of intraparenchymal hemorrhage with surrounding edema in the watershed distribution bet ween the right parieto-occipital cortex. This was not evident on previous study of 06/11/16. Different ial considerations include hemorrhagic infarct versus hemorrhagic mass. Post contrast MRI imaging is warranted for further assessment. Radu Cordova MD on August 03, 2016 at 13:28 Board Certified Radiologist. This report was verified electronically.
[2016-08-03 13:37] LABS: CHLORIDE 100 MEQ/L (98-107); SODIUM (NA) 137 MEQ/L (136-145)
[2016-08-03 13:42] LABS: ANION GAP 11 MEQ/L (5-15); BICARBONATE 25.9 MEQ/L (21.0-32.0)
[2016-08-03] MEDS ORDERED: BISACODYL 10 MG SUPP RECTAL PRN (14:00)
[2016-08-03] MEDS ORDERED: NALOXONE HCL 0.4 MG/ML AMP IV PRN (14:00)
[2016-08-03] MEDS ORDERED: ACETAMINOPHEN/HYDROcodone 325 MG/10 MG TAB PO PRN (14:00)
[2016-08-03] MEDS ORDERED: ACETAMINOPHEN 325 MG TAB PO PRN ×3 (14:00→16:45)
[2016-08-03] MEDS ORDERED: ACETAMINOPHEN/HYDROcodone 325 MG/5 MG TAB PO PRN (14:00)
[2016-08-03] MEDS ORDERED: SODIUM CHLORIDE 0.9% FLUSH 10 ML FLUSH IV FLUSH PRN ×2 (14:00→16:45)
[2016-08-03 14:03] LABS: ALKALINE PHOSPHATASE 130 U/L (45-117); ALT (GPT) 18 U/L (12-78); AST (GOT) 20 U/L (15-37); BLOOD UREA NITROGEN 28 MG/DL (7-18); CREATINE KINASE 158 U/L (39-308); GLOMERULAR FILTRATION RATE 7 ML/MIN (>89); MAGNESIUM 2.1 MG/DL (1.5-2.5); TOTAL BILIRUBIN ADULT 0.4 MG/DL (0.2-1.0)
[2016-08-03] MEDS ORDERED: GLUCAGON 1 MG/ML VIAL OTHER PRN (14:15)
[2016-08-03] MEDS ORDERED: hydrALAZINE HCL 20 MG/ML VIAL IV PRN (14:15)
[2016-08-03] MEDS ORDERED: INSULIN HUMAN REGULAR 1,000 UNITS/10 ML VIAL SQ ONE (14:15)
[2016-08-03] MEDS ORDERED: cloNIDine HCL 0.1 MG TAB PO PRN ×2 (14:15→16:45)
[2016-08-03] MEDS ORDERED: DEXTROSE 50% IN WATER 50 ML VIAL(D50) IV PUSH PRN (14:15)
[2016-08-03 14:17] LABS: APTT (PATIENT) 27.8 SEC (24.3-30.1); PROTHROMBIN TIME - PATIENT 10.6 SEC (9.8-11.6)
[2016-08-03 14:18] LABS: CKMB 1.6 NG/ML (0.5-3.6)
--- NOTE | 2016-08-03 14:57 | HHI.HP ---
[facility] Admission Diagnosis Hemorrhagic infarct versus hemorrhagic mass Diagnoses: Chief Complaint: confusion Travel History International Travel<30 Days: No Contact w/Intl Traveler <30 Da: No Traveled to Known Affected Are: No History of Present Illness This is a 51-year-old male with history of end-stage renal disease on hemodialysis T/, anemia, coronary artery disease status post NH, hypertension, diabetes mellitus congestive heart failure, GERD, anxiety and depression. He presents to emergency room with his for evaluation of altered mental status. Patient's reports that about a month ago, patient had medications for sedation as he needed stents in his right-sided AV fistula. Since then he became intermittently confused and disoriented. 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 Patient denies any new medications. He denies headache, dizziness, fever, chills, neck pain, numbness and focal weakness. 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 Patient did receive his dialysis yesterday as scheduled. Patient does not make any urine at this time. Today he was worse according to his being more anxious, tearful and complained of butterflies in his stomach. He reports of burning sensation in his epigastric area. ED workup shows abnormal head CT with focal area of intraparenchymal hemorrhage with surrounding edema in the watershed distribution between the right parieto-occipital cortex. Denies falls or head trauma. He has been started on aspirin about a week ago. Neurosurgery construction trades contractor recommended admission to [facility] under the medical service and will see patient in consult Review of Systems Constitutional: DENIES: Diaphoretic episodes, Fatigue, Fever, Weight gain, Weight loss, Chills, Dizziness, Change in appetite, Night Sweats Endocrine: DENIES: Heat/cold intolerance, Polydipsia, Polyuria, Polyphagia Eyes: DENIES: Blurred vision, Diplopia, Vision loss, Photosensitivity Ears, nose, mouth, throat: DENIES: Tinnitus, Vertigo, Throat pain, Hoarseness, Epistaxis, Odynophagia Respiratory: DENIES: Cough, Wheezing, Hemoptysis, Sputum production, Shortness of breath Cardiovascular: DENIES: Chest pain, Palpitations, Syncope, Dyspnea on Exertion , PND, Lower Extremity Edema, Orthopnea, Claudication Gastrointestinal: DENIES: Abdominal pain, Black stools, Bloody stools, Constipation, Diarrhea, Nausea, Vomiting, Difficulty Swallowing, Anorexia Genitourinary: DENIES: Urinary frequency, Urinary incontinence, Urgency, Hematuria, Dysuria, Nocturia, Penile Discharge Integumentary: DENIES: Rash Neurologic: DENIES: Headache, Localized weakness, Seizures, Tremor, Poor Balance Psychiatric: DENIES: Anxiety, Confusion, Depression, Hallucinations, Agitation , Suicidal Ideation, Homicidal Ideation, Delusions Except as stated in HPI: all other systems reviewed are Neg Past Family Social History Past Medical History As previously mentioned Past Surgical History Appendectomy, AV grafts bilateral upper extremities, retina repair right, bilateral nephrectomy, left kidney transplant, tonsillectomy Reported Medications Novolog Inj (Insulin Aspart) 1,000 Unit/10 Ml Vial 0 SQ DIRECTED Sliding Scale as directed. Lantus Inj (Insulin Glargine) 1,000 Unit/10 Ml Vial 16 Units SQ HS Diazepam 2 Mg Tab 2 Mg PO DIRECTED PRN Lortab (Hydrocodone-Acetaminophen) 10-325 Mg Tab 1 Tab PO Q6H PRN Zyrtec Allergy (Cetirizine HCl) 10 Mg Tab 10 Mg PO DAILY Omeprazole 20 Mg Tab 20 Mg PO BID Mirtazapine 45 Mg Tab 45 Mg PO HS Sensipar (Cinacalcet) 30 Mg Tab 30 Mg PO DAILY Paroxetine (Paroxetine HCl) 40 Mg Tab 0.5 Tab PO DAILY Aspirin 81 Mg Tabdr 81 Mg PO DAILY Atorvastatin (Atorvastatin Calcium) 20 Mg Tab 0.5 Tab PO HS Allergies: Coded Allergies: Darvocet-N 100 (Verified Allergy, Severe, Itching, 08/03/16) Demerol (Verified Allergy, Severe, Itching, 08/03/16) Morphine (Verified Allergy, Severe, Itching, 08/03/16) Lisinopril (Verified Adverse Reaction, Severe, Cough, 08/03/16) Family History Diabetes mellitus, heart disease and hypertension Social History He does not drink. Smokes 1-2 cigarettes a day. Does not use any illicit drugs Physical Exam Vital Signs Vital Signs Date Time Temp Pulse Resp B/P Pulse Ox O2 Delivery O2 Flow Rate FiO2 08/03/16 13:42 95 16 156/84 97 Room Air 08/03/16 12:54 100 Room Air 08/03/16 11:49 98 100 Room Air 08/03/16 11:37 98.3 111 18 146/94 98 Physical Exam GENERAL: This is a well-nourished, well-developed patient, in distress due to anxiety. SKIN: No rashes, ecchymoses or lesions. Cool and dry. HEAD: Atraumatic. Normocephalic. No temporal or scalp tenderness. EYES: Pupils equal round and reactive. Extraocular motions intact. No scleral icterus. No injection or drainage. ENT: Nose without bleeding, purulent drainage or septal hematoma. Throat without erythema, tonsillar hypertrophy or exudate. Uvula midline. Airway patent. NECK: Trachea midline. No JVD or lymphadenopathy. Supple, nontender, no meningeal signs. CARDIOVASCULAR: Regular rate and rhythm without gallops, or rubs. Systolic murmur noted RESPIRATORY: Clear to auscultation. Breath sounds equal bilaterally. No wheezes , rales, or rhonchi. GASTROINTESTINAL: Abdomen soft, non-tender, nondistended. No guarding. MUSCULOSKELETAL: Extremities without clubbing, cyanosis, or edema. No joint tenderness, effusion, or edema noted. No calf tenderness. Negative Homans sign bilaterally. Right upper extremity AV fistula with thrill NEUROLOGICAL: Awake and alert. Cranial nerves II through XII intact. Motor and sensory grossly within normal limits. Five out of 5 muscle strength in all muscle groups. Normal speech. Laboratory Laboratory Tests Test 08/03/16 08/03/16 13:15 13:55 White Blood Count 5.2 Red Blood Count 3.01 Hemoglobin 9.4 Hematocrit 28.8 Mean Corpuscular Volume 95.4 Mean Corpuscular Hemoglobin 31.1 Mean Corpuscular Hemoglobin 32.6 Concent Red Cell Distribution Width 13.5 Platelet Count 227 Mean Platelet Volume 6.9 Neutrophils (%) (Auto) 61.3 Lymphocytes (%) (Auto) 22.9 Monocytes (%) (Auto) 10.6 Eosinophils (%) (Auto) 4.8 Basophils (%) (Auto) 0.4 Neutrophils # (Auto) 3.2 Lymphocytes # (Auto) 1.2 Monocytes # (Auto) 0.5 Eosinophils # (Auto) 0.2 Basophils # (Auto) 0.0 CBC Comment DIFF FINAL Differential Comment Sodium Level 137 Potassium Level 5.0 Chloride Level 100 Carbon Dioxide Level 25.9 Anion Gap 11 Blood Urea Nitrogen 28 Creatinine 9.60 Estimat Glomerular Filtration 7 Rate Random Glucose 405 Calcium Level 8.7 Magnesium Level 2.1 Total Bilirubin 0.4 Aspartate Amino Transf 20 (AST/SGOT) Alanine Aminotransferase 18 (ALT/SGPT) Alkaline Phosphatase 130 Total Creatine Kinase 158 Creatine Kinase MB 1.6 Troponin I LESS THAN 0.02 B-Type Natriuretic Peptide 37 Total Protein 7.1 Albumin 3.4 Lipase 121 Prothrombin Time 10.6 Prothromb Time International 1.0 Ratio Activated Partial 27.8 Thromboplast Time Result Diagram: 08/03/16 1315 08/03/16 1315 Imaging EKG tracing interpreted by me with sinus rhythm poor R-wave progression no significant change from previous Chest x-ray image interpreted by me with no acute cardio pulmonary disease Last Impressions Head CT 08/03/16 1245 Signed Impressions: Service Date/Time: Wednesday, August 03, 2016 13:15 - CONCLUSION: 1. Focal area of intraparenchymal hemorrhage with surrounding edema in the watershed distribution between the right parieto-occipital cortex. This was not evident on previous study of 06/11/16. Differential considerations include hemorrhagic infarct versus hemorrhagic mass. Post contrast MRI imaging is warranted for further assessment. Radu Cordova MD Chest X-Ray 08/03/16 1245 Signed Impressions: Service Date/Time: Wednesday, August 03, 2016 13:06 - CONCLUSION: 1. No acute cardiopulmonary findings. Radu Cordova MD Assessment and Plan Assessment and Plan This is a 51-year-old male who presents to emergency room with his for evaluation of altered mental status. Patient's reports that about a month ago, patient had medications for sedation as he needed stents in his right- sided AV fistula. Since then he became intermittently confused and disoriented. Back in 2005, he developed similar symptoms and underwent extensive workup including lumbar puncture and was diagnosed with medicine- induced dementia when he stopped taking his citalopram. Patient denies any new medications. He denies headache, dizziness, fever, chills, neck pain, numbness and focal weakness. 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 Patient did receive his dialysis yesterday as scheduled. Patient does not make any urine at this time. Today he was worse according to his being more anxious, tearful and complained of butterflies in his stomach. He reports of burning sensation in his epigastric area. ED workup shows abnormal head CT with focal area of intraparenchymal hemorrhage with surrounding edema in the watershed distribution between the right parieto-occipital cortex. Neurosurgery construction trades contractor recommended admission to [facility] under the medical service and will see patient in consult. Intraparenchymal hemorrhage with surrounding edema in the right parietal occipital cortex. Patient will be admitted to intensive care unit with close monitoring. Neurochecks. Seizure precautions. Head of bed at 30. Strict BP controlled. . Consult neurosurgery. Discontinue aspirin. Pain management with Lortab . Consult PT, OT and ST Chronic medical conditions of end-stage renal disease on hemodialysis T//S, anemia, coronary artery disease status post NH, hypertension, diabetes mellitus , congestive heart failure, GERD, anxiety and depression. Continue outpatient medications as appropriate. Consult nephrology for management of hemodialysis. Monitor fingersticks with sliding scale coverage. DVT prophylaxis with SCD and early ambulation. Pharmacological prophylaxis contraindicated secondary to ICH Physician Certification 2 Midnight Certification Type: Admission for Inpatient Services Order for Inpatient Services The services are ordered in accordance with Medicare regulations or non- Medicare payer requirements, as applicable. In the case of services not specified as inpatient-only, they are appropriately provided as inpatient services in accordance with the 2-midnight benchmark. Estimated LOS (days): 2 days is the estimated time the patient will need to remain in the hospital, assuming treatment plan goals are met and no additional complications. Post-Hospital Plan: Not yet determined Cole Sanders MD August 03, 2016 14:57
[2016-08-03] MEDS: DIAZEPAM 2 MG TAB PO PRN ×2 (15:13→21:18)
[2016-08-03] MEDS: INSULIN ASPART SUPPLEMENTAL SCALE SQ SCH ×2 (16:00→21:00)
[2016-08-03] MEDS ORDERED: SODIUM CHLOR 0.9% 1000 ML INJ 1,000 ML IV PRN ×3 (16:31)
--- NOTE | 2016-08-03 16:37 | PD.CONS ---
HPI Service Nephrology Consult Requested By Tommy Reason for Consult ESRD on HD TTS Primary Care Physician [facility] History of Present Illness This is a 51 y/o AAM patient with whom we follow in the outpatient setting. PMH of ESRD, he dialyzes TTS, has not missed any treatments. Other PMH of anemia, coronary artery disease s/p LA, hypertension, DM 2, CHF, GERD, anxiety and depression. He presented to ER for altered mental status with confusion. He has had a hx of this in the past that was attributed to medication, Celexa induced dementia. We were consulted today for dialysis management. Labs unremarkable aside from renal indices consistent with ESRD and a serum glucose of 405. He has had DKA in the past, does not have an anion gap today. On exam he has no neuro deficit, admits to feeling anxious and confused. Also reports recent insomnia asking for hypnotic medication. He is a full code this admission. ( Sho Laughlin) Review of Systems Constitutional: DENIES: Diaphoretic episodes, Fatigue, Fever Cardiovascular: DENIES: Chest pain, Lower Extremity Edema Gastrointestinal: DENIES: Abdominal pain Psychiatric: COMPLAINS OF: Anxiety, Confusion, Agitation, DENIES: Mood changes , Depression (Sho Laughlin) Past Family Social History Allergies: Coded Allergies: Darvocet-N 100 (Verified Allergy, Severe, Itching, 08/03/16) Demerol (Verified Allergy, Severe, Itching, 08/03/16) Morphine (Verified Allergy, Severe, Itching, 08/03/16) Lisinopril (Verified Adverse Reaction, Severe, Cough, 08/03/16) Past Medical History ESRD on HD T//S anemia, CAD s/p LA HTN DM II CHF GERD anx/depression detached retina right Past Surgical History Appendectomy AV grafts bilateral upper extremities retina repair right bilateral nephrectomy left kidney transplant tonsillectomy Reported Medications Novolog Inj (Insulin Aspart) 1,000 Unit/10 Ml Vial 0 SQ DIRECTED Sliding Scale as directed. Lantus Inj (Insulin Glargine) 1,000 Unit/10 Ml Vial 16 Units SQ HS Diazepam 2 Mg Tab 2 Mg PO DIRECTED PRN Lortab (Hydrocodone-Acetaminophen) 10-325 Mg Tab 1 Tab PO Q6H PRN Zyrtec Allergy (Cetirizine HCl) 10 Mg Tab 10 Mg PO DAILY Omeprazole 20 Mg Tab 20 Mg PO BID Mirtazapine 45 Mg Tab 45 Mg PO HS Sensipar (Cinacalcet) 30 Mg Tab 30 Mg PO DAILY Paroxetine (Paroxetine HCl) 40 Mg Tab 0.5 Tab PO DAILY Aspirin 81 Mg Tabdr 81 Mg PO DAILY Atorvastatin (Atorvastatin Calcium) 20 Mg Tab 0.5 Tab PO HS Phoslo 667 mg; 4 tabs po with meals TID, 2 with snacks Active Ordered Medications Current Medications Medications (Trade) Dose Ordered Sig/Suzan Route Start Time Stop Time Status Last Admin (NS Flush) 2 ml UNSCH PRN IV FLUSH 08/03/16 14:00 (NS Flush) 2 ml BID IV FLUSH 08/03/16 21:00 (Tylenol) 650 mg Q4H PRN PO 08/03/16 14:00 (Zofran Inj) 4 mg Q6H PRN IVP 08/03/16 14:00 (Dulcolax Supp) 10 mg DAILY PRN RECTAL 08/03/16 14:00 (Tylenol) 650 mg Q6H PRN PO 08/03/16 14:00 (Blanco 5-325 Mg) 1 tab Q4H PRN PO 08/03/16 14:00 (Narcan Inj) 0.4 mg UNSCH PRN IV 08/03/16 14:00 (Blanco 10-325 Mg) 1 tab Q4H PRN PO 08/03/16 14:00 (Apresoline Inj) 10 mg Q6H PRN IV 08/03/16 14:15 (Catapres) 0.1 mg Q6H PRN PO 08/03/16 14:15 (D50w (Vial) Inj) 25 ml UNSCH PRN IV PUSH 08/03/16 14:15 (Glucagon Inj) 1 mg UNSCH PRN OTHER 08/03/16 14:15 (Lipitor) 10 mg HS PO 08/03/16 21:00 (ZyrTEC) 10 mg DAILY PO 08/04/16 09:00 (Sensipar) 30 mg DAILY PO 08/04/16 09:00 (Remeron) 45 mg HS PO 08/03/16 21:00 (Paxil) 20 mg DAILY PO 08/04/16 09:00 (Protonix) 20 mg BID PO 08/03/16 21:00 (Valium) 2 mg Q4HR PRN PO 08/03/16 14:45 08/03/16 15:13 Insulin Detemir 16 units 16 units HS SQ 08/03/16 21:00 (NS 1000 ml Inj) 1,000 ml @ 0 mls/hr Q0M PRN IV 08/03/16 16:31 Heparin Sodium (Porcine) 8000 units 8,000 units UNSCH PRN IVF 08/03/16 16:45 UNV Sodium Chloride 1,000 ml @ 200 mls/hr Q5H PRN IV 08/03/16 16:31 (NS 1000 ml Inj) 1,000 ml @ 0 mls/hr Q0M PRN IV 08/03/16 16:31 (Mannitol Inj) 12.5 gm UNSCH PRN IV 08/03/16 16:45 (Albumin 25% Inj) 25 gm UNSCH PRN IV 08/03/16 16:45 (NS Flush) 5 ml UNSCH PRN IV FLUSH 08/03/16 16:45 (Heparin Inj) UNSCH PRN .XX 08/03/16 16:45 (Gentamicin (Dialysis) Inj) 20 mg UNSCH PRN IV 08/03/16 16:45 (Zofran Inj) 4 mg UNSCH PRN IV 08/03/16 16:45 (Tylenol) 650 mg UNSCH PRN PO 08/03/16 16:45 (Benadryl) 25 mg UNSCH PRN PO 08/03/16 16:45 (Nitrostat Sl) 0.4 mg UNSCH PRN SL 08/03/16 16:45 (Catapres) 0.1 mg UNSCH PRN PO 08/03/16 16:45 (Epogen Inj) 10,000 units UNSCH PRN IV 08/03/16 16:45 (Gelfoam 12 Mm/7 Mm Top) 1 foam UNSCH PRN TOP 08/03/16 16:45 Family History no hx of renal disorders Social History , lives locally with retired from HVAC installation, no chemical exposure no smoking hx, denies ETOH or drug use independent with ADLs full code (Sho Laughlin) Physical Exam Vital Signs Vital Signs Date Time Temp Pulse Resp B/P Pulse Ox O2 Delivery O2 Flow Rate FiO2 5/5/17 15:32 90 16 167/87 99 Room Air 08/03/16 13:42 95 16 156/84 97 Room Air 08/03/16 12:54 100 Room Air 08/03/16 11:49 98 100 Room Air 08/03/16 11:37 98.3 111 18 146/94 98 Physical Exam Middle aged AAM, resting but awakens to voice alert/oriented to 3, slightly agitated and fidgeting S1/S2, regular rhythm, rate 105, BP 167/87 Abd: soft, non tender Ext: no edema; right arm + thrill/bruit Laboratory Laboratory Tests Test 08/03/16 08/03/16 13:15 13:55 White Blood Count 5.2 Red Blood Count 3.01 Hemoglobin 9.4 Hematocrit 28.8 Mean Corpuscular Volume 95.4 Mean Corpuscular Hemoglobin 31.1 Mean Corpuscular Hemoglobin 32.6 Concent Red Cell Distribution Width 13.5 Platelet Count 227 Mean Platelet Volume 6.9 Neutrophils (%) (Auto) 61.3 Lymphocytes (%) (Auto) 22.9 Monocytes (%) (Auto) 10.6 Eosinophils (%) (Auto) 4.8 Basophils (%) (Auto) 0.4 Neutrophils # (Auto) 3.2 Lymphocytes # (Auto) 1.2 Monocytes # (Auto) 0.5 Eosinophils # (Auto) 0.2 Basophils # (Auto) 0.0 CBC Comment DIFF FINAL Differential Comment Sodium Level 137 Potassium Level 5.0 Chloride Level 100 Carbon Dioxide Level 25.9 Anion Gap 11 Blood Urea Nitrogen 28 Creatinine 9.60 Estimat Glomerular Filtration 7 Rate Random Glucose 405 Calcium Level 8.7 Magnesium Level 2.1 Total Bilirubin 0.4 Aspartate Amino Transf 20 (AST/SGOT) Alanine Aminotransferase 18 (ALT/SGPT) Alkaline Phosphatase 130 Total Creatine Kinase 158 Creatine Kinase MB 1.6 Troponin I LESS THAN 0.02 B-Type Natriuretic Peptide 37 Total Protein 7.1 Albumin 3.4 Lipase 121 Prothrombin Time 10.6 Prothromb Time International 1.0 Ratio Activated Partial 27.8 Thromboplast Time (Sho Laughlin) Result Diagram: 08/03/16 1315 08/03/16 1315 Imaging Last Impressions Head CT 08/03/16 1245 Signed Impressions: Service Date/Time: Wednesday, August 03, 2016 13:15 - CONCLUSION: 1. Focal area of intraparenchymal hemorrhage with surrounding edema in the watershed distribution between the right parieto-occipital cortex. This was not evident on previous study of 06/11/16. Differential considerations include hemorrhagic infarct versus hemorrhagic mass. Post contrast MRI imaging is warranted for further assessment. Radu Cordova MD Chest X-Ray 08/03/16 1245 Signed Impressions: Service Date/Time: Wednesday, August 03, 2016 13:06 - CONCLUSION: 1. No acute cardiopulmonary findings. Radu Cordova MD (Sho Laughlin) Assessment and Plan Problem List: (1) ESRD (end stage renal disease) on dialysis Plan: Resume TTS dialysis, he is due tomorrow no current electrolyte concerns he has graft right arm for HD avoid IVF, gadolinium he is anuric at baseline daily renal panel continue Sensipar for secondary hyperparathyroidism (2) Altered mental status Plan: CT showing hemorrhagic mass or stroke, he is to be transferred to [facility] neurosurgery to be consulted he has no deficit ASA has been held tight BP control fall precautions avoid sedating medications (3) DM (diabetes mellitus) Plan: hyperglycemic, he is not in DKA resume insulin per home medications (4) HTN (hypertension) Plan: tight BP control start hydralazine, titrate to maintain normotension (5) Anemia Plan: epogen with dialysis check iron profile (6) Metabolic bone disease Plan: resume phoslo intermittently check phosphorus level Code Status full (Sho Laughlin) Assessment and Plan patient was seen and examined. Agree with above assessment and plan. Mild hyperkalemia is noted, likely due to hyperglycemia. Dialysis will be continued TTS. Needs insulin coverage. Neurosurgery evaluation. (George Childs MD) Sho Laughlin August 03, 2016 16:37 George Childs MD August 04, 2016 05:43
[2016-08-03] MEDS ORDERED: ONDANSETRON HCL 4 MG/2 ML VIAL IV PRN (16:45)
[2016-08-03] MEDS ORDERED: GENTAMICIN SULFATE (DIALYSIS USE ONLY) 20 MG/2 ML VIAL IV PRN (16:45)
[2016-08-03] MEDS ORDERED: MANNITOL 12.5 GM/50 ML VIAL IV PRN (16:45)
[2016-08-03] MEDS ORDERED: NITROGLYCERIN 0.4 MG SL 25 TABS/BTL SL PRN (16:45)
[2016-08-03] MEDS ORDERED: GELATIN 12 MM/7 MM FOAM TOP PRN (16:45)
[2016-08-03] MEDS ORDERED: HEPARIN SODIUM - IV 10,000 UNITS/10 ML VIAL IVF PRN (16:45)
[2016-08-03] MEDS ORDERED: ALBUMIN HUMAN 25% 25 GM/100 ML BAGP IV PRN (16:45)
[2016-08-03] MEDS ORDERED: diphenhydrAMINE HCL 25 MG CAP PO PRN (16:45)
[2016-08-03] MEDS ORDERED: HEPARIN SODIUM - IV 10,000 UNITS/10 ML VIAL PRN (16:45)
--- NOTE | 2016-08-03 18:44 | PD.CONS ---
[facility] Service neurosurg Consult Requested By Maryann KRAMER Reason for Consult hemorragic mass Primary Care Physician [facility] History of Present Illness This is a 51-year-old male with history of end-stage renal disease on hemodialysis anemia, coronary artery disease status post ME, arterial hypertension, diabetes mellitus, congestive heart failure, GERD, anxiety and depression. He presents to emergency room with his for evaluation of altered mental status. His reports that about a month ago, he received medications for sedation for a right-sided AV fistula. Since then he has been intermittently confused and disoriented. He denies headache, dizziness, fever, chills, neck pain, numbness and focal weakness. 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 He received his dialysis yesterday as scheduled. Today he was apparently worse, more anxious, tearful and complained of butterflies in his stomach. He reports of burning sensation in his epigastric area. CT brain showed a focal area of intraparenchymal hemorrhage with surrounding edema in the watershed distribution between the right parieto- occipital cortex. Denies falls or head trauma. He has been started on aspirin fo a week. Neurosurgery was consulted Review of Systems Constitutional: DENIES: Diaphoretic episodes, Fatigue, Fever, Weight gain, Weight loss, Chills, Dizziness, Change in appetite, Night Sweats Endocrine: DENIES: Heat/cold intolerance, Polydipsia, Polyuria, Polyphagia Eyes: DENIES: Blurred vision, Diplopia, Vision loss, Photosensitivity Ears, nose, mouth, throat: DENIES: Tinnitus, Vertigo, Throat pain, Hoarseness, Epistaxis, Odynophagia Respiratory: DENIES: Cough, Wheezing, Hemoptysis, Sputum production, Shortness of breath Cardiovascular: DENIES: Chest pain, Palpitations, Syncope, Dyspnea on Exertion , PND, Lower Extremity Edema, Orthopnea, Claudication Gastrointestinal: DENIES: Abdominal pain, Black stools, Bloody stools, Constipation, Diarrhea, Nausea, Vomiting, Difficulty Swallowing, Anorexia Genitourinary: DENIES: Urinary frequency, Urinary incontinence, Urgency, Hematuria, Dysuria, Nocturia, Penile Discharge Integumentary: DENIES: Rash Neurologic: DENIES: Headache, Localized weakness, Seizures, Tremor, Poor Balance Psychiatric: DENIES: Anxiety, Confusion, Depression, Hallucinations, Agitation , Suicidal Ideation, Homicidal Ideation, Delusions Past Family Social History Allergies: Coded Allergies: Darvocet-N 100 (Verified Allergy, Severe, Itching, 08/03/16) Demerol (Verified Allergy, Severe, Itching, 08/03/16) Morphine (Verified Allergy, Severe, Itching, 08/03/16) Lisinopril (Verified Adverse Reaction, Severe, Cough, 08/03/16) Past Medical History end-stage renal disease on hemodialysis anemia, coronary artery disease status post ME, arterial hypertension, diabetes mellitus, congestive heart failure, GERD, anxiety and depression Past Surgical History Appendectomy, AV grafts bilateral upper extremities, retina repair right, bilateral nephrectomy, left kidney transplant, tonsillectomy Reported Medications Novolog Inj (Insulin Aspart) 1,000 Unit/10 Ml Vial 0 SQ DIRECTED Sliding Scale as directed. Lantus Inj (Insulin Glargine) 1,000 Unit/10 Ml Vial 16 Units SQ HS Diazepam 2 Mg Tab 2 Mg PO DIRECTED PRN Lortab (Hydrocodone-Acetaminophen) 10-325 Mg Tab 1 Tab PO Q6H PRN Zyrtec Allergy (Cetirizine HCl) 10 Mg Tab 10 Mg PO DAILY Omeprazole 20 Mg Tab 20 Mg PO BID Mirtazapine 45 Mg Tab 45 Mg PO HS Sensipar (Cinacalcet) 30 Mg Tab 30 Mg PO DAILY Paroxetine (Paroxetine HCl) 40 Mg Tab 0.5 Tab PO DAILY Aspirin 81 Mg Tabdr 81 Mg PO DAILY Atorvastatin (Atorvastatin Calcium) 20 Mg Tab 0.5 Tab PO HS Active Ordered Medications Current Medications Sodium Chloride (NS Flush) 2 ml UNSCH PRN IVF FLUSH AFTER USING IV ACCESS; Start 08/03/16 at 12:45; Stop 08/03/16 at 14:17; Status DC Sodium Chloride (NS Flush) 2 ml UNSCH PRN IV FLUSH FLUSH AFTER USING IV ACCESS ; Start 08/03/16 at 14:00 Sodium Chloride (NS Flush) 2 ml BID IV FLUSH ; Start 08/03/16 at 21:00 Acetaminophen (Tylenol) 650 mg Q4H PRN PO TEMP > 100.4; Start 08/03/16 at 14:00 Ondansetron HCl (Zofran Inj) 4 mg Q6H PRN IVP NAUSEA OR VOMITING; Start at 14:00 Bisacodyl (Dulcolax Supp) 10 mg DAILY PRN RECTAL CONSTIPATION; Start 08/03/16 at 14:00 Acetaminophen (Tylenol) 650 mg Q6H PRN PO PAIN SCALE 1 TO 2; Start 08/03/16 at 14:00 Acetaminophen/ Hydrocodone Bitart ([place] 5-325 Mg) 1 tab Q4H PRN PO PAIN SCALE 3 TO 5; Start 08/03/16 at 14:00 Naloxone HCl (Narcan Inj) 0.4 mg UNSCH PRN IV SEE LABEL COMMENTS; Start at 14:00 Acetaminophen/ Hydrocodone Bitart ([place] 10-325 Mg) 1 tab Q4H PRN PO PAIN SCALE 6 TO 10; Start 08/03/16 at 14:00 Hydralazine HCl (Apresoline Inj) 10 mg Q6H PRN IV SBP> OR = 170, DBP> OR = 100 ; Start 08/03/16 at 14:15 Clonidine (Catapres) 0.1 mg Q6H PRN PO SBP> OR = 170, DBP> OR = 100; Start 08/03 at 14:15 Insulin Human Regular (NovoLIN R INJ) 6 units ONCE ONCE SQ Last administered on 08/03/16t 14:12; Start 08/03/16 at 14:15; Stop 08/03/16 at 14:16; Status DC Dextrose (D50w (Vial) Inj) 25 ml UNSCH PRN IV PUSH HYPOGLYCEMIA-SEE COMMENTS; Start 08/03/16 at 14:15 Glucagon (Glucagon Inj) 1 mg UNSCH PRN OTHER HYPOGLYCEMIA-SEE COMMENTS; Start 08/03/16 at 14:15 Insulin Aspart (NovoLOG SUPPLEMENTAL SCALE) 1 ACHS SLIDING SCALE SQ ; Start 08/03/16 at 16:00 Atorvastatin Calcium (Lipitor) 10 mg HS PO ; Start 08/03/16 at 21:00 Cetirizine HCl (ZyrTEC) 10 mg DAILY PO ; Start 08/04/16 at 09:00 Cinacalcet (Sensipar) 30 mg DAILY PO ; Start 08/04/16 at 09:00 Mirtazapine (Remeron) 45 mg HS PO ; Start 08/03/16 at 21:00 Paroxetine HCl (Paxil) 20 mg DAILY PO ; Start 08/04/16 at 09:00 Pantoprazole Sodium (Protonix) 20 mg BID PO ; Start 08/03/16 at 21:00 Diazepam (Valium) 2 mg Q4HR PRN PO ANXIETY Last administered on 08/03/16t 15:13 ; Start 08/03/16 at 14:45 Insulin Detemir 16 units 16 units HS SQ ; Start 08/03/16 at 21:00 Sodium Chloride (NS 1000 ml Inj) 1,000 ml @ 0 mls/hr Q0M PRN IV For Prime & Rinse Back; Start 08/03/16 at 16:31 Heparin Sodium (Porcine) 8000 units 8,000 units UNSCH PRN IVF WITH DIALYSIS; Start 08/03/16 at 16:45 Sodium Chloride 1,000 ml @ 200 mls/hr Q5H PRN IV WITH DIALYSIS; Start 08/03/16 at 16:31 Sodium Chloride (NS 1000 ml Inj) 1,000 ml @ 0 mls/hr Q0M PRN IV WITH DIALYSIS; Start 08/03/16 at 16:31 Mannitol (Mannitol Inj) 12.5 gm UNSCH PRN IV WITH DIALYSIS; Start 08/03/16 at 16 :45 Albumin Human (Albumin 25% Inj) 25 gm UNSCH PRN IV WITH DIALYSIS; Start at 16:45 Sodium Chloride (NS Flush) 5 ml UNSCH PRN IV FLUSH WITH DIALYSIS; Start at 16:45 Heparin Sodium (Porcine) (Heparin Inj) UNSCH PRN .XX WITH DIALYSIS; Start 08/03 at 16:45 Gentamicin Sulfate (Gentamicin (Dialysis) Inj) 20 mg UNSCH PRN IV WITH DIALYSIS ; Start 08/03/16 at 16:45 Ondansetron HCl (Zofran Inj) 4 mg UNSCH PRN IV WITH DIALYSIS; Start 08/03/16 at 16:45 Acetaminophen (Tylenol) 650 mg UNSCH PRN PO for headach, pain, temp > 101F; Start 08/03/16 at 16:45 Diphenhydramine HCl (Benadryl) 25 mg UNSCH PRN PO for hives/itching/anaphylaxis ; Start 08/03/16 at 16:45 Nitroglycerin (Nitrostat Sl) 0.4 mg UNSCH PRN SL CHEST PAIN; Start 08/03/16 at 16:45 Clonidine (Catapres) 0.1 mg UNSCH PRN PO for BP > 180/100 X 2 readings; Start 08/03/16 at 16:45 Epoetin Jesus (Epogen Inj) 10,000 units UNSCH PRN IV WITH DIALYSIS; Start at 16:45 Gelatin (Gelfoam 12 Mm/7 Mm Top) 1 foam UNSCH PRN TOP SEE LABEL COMMENTS; Start 08/03/16 at 16:45 Calcium Acetate (Phoslo) 2,001 mg TID PO ; Start 08/03/16 at 18:00 Hydralazine HCl (Apresoline) 50 mg Q8HR PO ; Start 08/03/16 at 17:30 Family History Diabetes mellitus, heart disease and hypertension Social History He does not drink. Smokes 1-2 cigarettes a day. Does not use any illicit drugs Physical Exam Vital Signs Vital Signs Date Time Temp Pulse Resp B/P Pulse Ox O2 Delivery O2 Flow Rate FiO2 08/03/16 17:34 98.5 82 16 145/72 99 Room Air 08/03/16 16:52 83 100 Room Air 08/03/16 15:32 90 16 167/87 99 Room Air 08/03/16 13:42 95 16 156/84 97 Room Air 08/03/16 12:54 100 Room Air 08/03/16 11:49 98 100 Room Air 08/03/16 11:37 98.3 111 18 146/94 98 Physical Exam The patient is alert, awake and oriented to time, place and person. Speech is fluent. GCS 15 Cranial nerve examination demonstrates the pupils to be equal, round, and reactive to light. Extra-ocular movements are intact. Facial motor and sensory function are normal and symmetrical. Gross hearing is intact, bilaterally. The uvula is midline and elevates symmetrically with the soft palate. Sternocleidomastoid and trapezius muscles have normal and symmetrical strength. Other cranial nerves are intact. Neck is soft and supple. Cervical spine has a full range of motion in anterior flexion, extension, lateral bending, and rotation without pain. There is no tenderness to palpation to the spinous processes or paraspinal muscles. Muscle testing reveals normal bulk and tone overall without rigidity, spasticity , fasciculations, or atrophy. Muscle strength is 5/5 in all muscle groups of both upper extremities including deltoid, biceps, triceps, brachioradialis, wrist extension and breaking machine operator. In the lower extremities, strength is 5/5 in both iliopsoas, quadriceps, hamstrings, plantar flexion, dorsiflexion, and extensor hallicus longus. Sensory examination is intact to light touch and sharp/dull discrimination in both the upper and lower extremities, symmetrically. Deep tendon reflexes are 2+ and symmetrical in the biceps, triceps, and brachioradialis, bilaterally, in the upper extremities. In the lower extremities , the patellar and Achilles are 2+, bilaterally. There is a bilateral plantar flexion response. Hoffmanns sign is negative. There is no clonus or other abnormal reflexes noted. Cerebellar examination is intact to [id number] test, rapid rhythmic alternating motion. There is no dysmetria, dysdiadochokinesia, truncal ataxia, or tremor. Laboratory Laboratory Tests Test 08/03/16 08/03/16 13:15 13:55 White Blood Count 5.2 Red Blood Count 3.01 Hemoglobin 9.4 Hematocrit 28.8 Mean Corpuscular Volume 95.4 Mean Corpuscular Hemoglobin 31.1 Mean Corpuscular Hemoglobin 32.6 Concent Red Cell Distribution Width 13.5 Platelet Count 227 Mean Platelet Volume 6.9 Neutrophils (%) (Auto) 61.3 Lymphocytes (%) (Auto) 22.9 Monocytes (%) (Auto) 10.6 Eosinophils (%) (Auto) 4.8 Basophils (%) (Auto) 0.4 Neutrophils # (Auto) 3.2 Lymphocytes # (Auto) 1.2 Monocytes # (Auto) 0.5 Eosinophils # (Auto) 0.2 Basophils # (Auto) 0.0 CBC Comment DIFF FINAL Differential Comment Sodium Level 137 Potassium Level 5.0 Chloride Level 100 Carbon Dioxide Level 25.9 Anion Gap 11 Blood Urea Nitrogen 28 Creatinine 9.60 Estimat Glomerular Filtration 7 Rate Random Glucose 405 Calcium Level 8.7 Magnesium Level 2.1 Total Bilirubin 0.4 Aspartate Amino Transf 20 (AST/SGOT) Alanine Aminotransferase 18 (ALT/SGPT) Alkaline Phosphatase 130 Total Creatine Kinase 158 Creatine Kinase MB 1.6 Troponin I LESS THAN 0.02 B-Type Natriuretic Peptide 37 Total Protein 7.1 Albumin 3.4 Lipase 121 Prothrombin Time 10.6 Prothromb Time International 1.0 Ratio Activated Partial 27.8 Thromboplast Time Result Diagram: 08/03/16 1315 08/03/16 1315 Imaging Last Impressions Head CT 08/03/16 1245 Signed Impressions: Service Date/Time: Wednesday, August 03, 2016 13:15 - CONCLUSION: 1. Focal area of intraparenchymal hemorrhage with surrounding edema in the watershed distribution between the right parieto-occipital cortex. This was not evident on previous study of 06/11/16. Differential considerations include hemorrhagic infarct versus hemorrhagic mass. Post contrast MRI imaging is warranted for further assessment. Radu Cordova MD Chest X-Ray 08/03/16 1245 Signed Impressions: Service Date/Time: Wednesday, August 03, 2016 13:06 - CONCLUSION: 1. No acute cardiopulmonary findings. Radu Cordova MD Attending Statement I reviewed his clinical and radiological studies. Recommend neuro checks in a serial fashion. Placement of ICP monitor is not indicated at this time. Non surgical management. Folllow up MRI of the brain is recommended ANticoagulation. Increased risk for hemorrhage. Hold ASA CHF. Continue home meds Hypertension. Monitor and treat as needed with antihypertrensives CAD. Hold ASA Respiratory. pulmonary toilette, nasotracheal suction, and breathing treatments with nebulizers. PT and OT eval Nutrition. Oral diet Bursitis and edema in her right knee. Consult orthopedics, she is well known by dr Ari Teresa Renal. Continue dialysis Endocrine. Monitor serial Acu checks and SSI for tight control ID monitor for signs of infection GERD. Protonix for stress ulcer prophylaxis Jose Cruz davis and SCD's for DVT prophylaxis Ej Meek MD August 03, 2016 18:44
[2016-08-03] MEDS: hydrALAZINE HCL 50 MG TAB PO SCH ×2 (18:55→21:09)
[2016-08-03] MEDS: CALCIUM ACETATE 667 MG CAP PO SCH (18:55)
[2016-08-03] MEDS ORDERED: INSULIN DETEMIR 100 UNITS/ML VIAL SQ SCH (21:00)
[2016-08-03] MEDS: PANTOPRAZOLE SOD 20 MG DELAYED RELEASE TAB PO SCH (21:09)
[2016-08-03] MEDS: MIRTAZAPINE 15 MG TAB PO SCH (21:09)
[2016-08-03] MEDS: SODIUM CHLORIDE 0.9% FLUSH 10 ML FLUSH IV FLUSH SCH (21:09)
[2016-08-03] MEDS: ATORVASTATIN 10 MG TAB PO SCH (21:09)
[2016-08-04] VITALS (13 sets, daily range): BP systolic 112–173; BP diastolic 59–85; PULSE 72–100; RESP 15–26; TEMP 97.9–99; O2SAT 94–99
[2016-08-04] MEDS: hydrALAZINE HCL 50 MG TAB PO SCH ×3 (05:00→21:35)
[2016-08-04] MEDS: DIAZEPAM 2 MG TAB PO PRN ×3 (05:00→18:13)
[2016-08-04 05:34] LABS: BLOOD UREA NITROGEN 36 MG/DL (7-18); GLOMERULAR FILTRATION RATE 6 ML/MIN (>89)
[2016-08-04 05:35] LABS: ANION GAP 11 MEQ/L (5-15); CHLORIDE 103 MEQ/L (98-107); POTASSIUM 4.6 MEQ/L (3.5-5.1); SODIUM (NA) 141 MEQ/L (136-145); TRANSFERRIN IRON PROFILE 144 MG/DL (200-360)
[2016-08-04] MEDS: INSULIN ASPART SUPPLEMENTAL SCALE SQ SCH ×4 (06:29→20:06)
[2016-08-04] MEDS: PANTOPRAZOLE SOD 20 MG DELAYED RELEASE TAB PO SCH ×2 (08:24→20:04)
[2016-08-04] MEDS: SODIUM CHLORIDE 0.9% FLUSH 10 ML FLUSH IV FLUSH SCH ×2 (08:24→20:05)
[2016-08-04] MEDS: CINACALCET HYDROCHLORIDE 30 MG TAB PO SCH (08:24)
[2016-08-04] MEDS: CETIRIZINE HCL 10 MG TAB PO SCH (08:25)
[2016-08-04] MEDS: CALCIUM ACETATE 667 MG CAP PO SCH ×3 (08:25→18:05)
[2016-08-04] MEDS: PARoxetine HCL 20 MG TAB PO SCH (08:25)
[2016-08-04] MEDS ORDERED: LORazepam 2 MG/ML VIAL IV SCH (10:00)
--- NOTE | 2016-08-04 10:29 | EKG ---
Date Performed: 08/03/2016 Time Performed: 12:47:10 PTAGE: 51 years EKG: Sinus rhythm Leftward axis Possible anteroseptal infarct - age undetermined Low QRS voltages in limb leads Abnorm al ECG PREVIOUS TRACING : 06/11/2016 13.10 DOCTOR: Anders Patino Interpretating Date/Time 08/04/2016 10:28:53
--- NOTE | 2016-08-04 10:46 | RADRPT ---
EXAM DATE/TIME: 08/04/2016 10:16 [place] COMPARISON: CT BRAIN W/O CONTRAST, August 03, 2016, 13:15. INDICATIONS : Altered mental status and intracranial hemorrhage. MEDICAL HISTORY : Renal failure, chronic. Hypertension. Diabetes mellitus type 2. SURGICAL HISTORY : Nephrectomy, right. Nephrectomy, left. Appendectomy. Kidney transplant, Right eye surgery. ENCOUNTER: Initial ACUITY: 1 day PAIN SCORE: 0/10 LOCATION: cranial TECHNIQUE: Multiplanar, multisequence MRI of the brain was performed without contrast. FINDINGS: The MRI study was performed without intravenous contrast limiting the sensitivity. There is a 1. 7 x 1.3 cm masslike area of signal intensity in the right parietal lobe with low signal on the axial diffusion weighted images and flair weighted images. There is surrounding edema with increased signal noted on the flair weighted images. On the T1 weighted sagittal images there is increased signal in the masslike area. There is mild mass effect and effacement of the sulci. The ventricular system marisa ins within normal limits. The posterior fossa and brainstem are unremarkable. No other focal lesions are identified. There is opacification of the right maxillary sinus and one of the right ethmoidal ai r cells. CONCLUSION: 1. Noncontrast MRI limiting the sensitivity for the detection of masses. 2. Focal masslike area of signal intensity with surrounding edema and low signal on the echoplanar we ighted images. There is increased signal on the T1-weighted images consistent with the known hemorrha ge. This is of concern for a hemorrhagic mass such as a metastatic lesion or primary tumor. A contras t enhanced exam would be helpful. 3. No additional focal abnormalities. Zion Ford MD on August 04, 2016 at 10:33 Board Certified Radiologist. This report was verified electronically.
--- NOTE | 2016-08-04 10:55 | HHI.PR ---
Subjective Remarks Follow-up intracranial hemorrhage, hypertension, diabetes. The patient had hypoglycemia this morning, which improved with a snack. Denies headache, vision changes, chest pain, dyspnea, nausea, vomiting. Objective Vitals Vital Signs Date Time Temp Pulse Resp B/P Pulse Ox O2 Delivery O2 Flow Rate FiO2 08/04/16 10:00 98 08/04/16 08:00 96 08/04/16 08:00 98.0 92 16 156/73 99 08/04/16 07:00 95 Room Air 08/04/16 06:00 90 08/04/16 04:00 72 08/04/16 04:00 97.9 72 26 136/76 94 08/04/16 03:35 95 21 08/04/16 02:00 74 08/04/16 00:00 86 08/04/16 00:00 98.5 86 16 142/65 98 08/03/16 22:00 78 08/03/16 20:00 98.3 78 26 160/77 99 08/03/16 20:00 78 08/03/16 19:00 99 Room Air 08/03/16 18:20 98.4 88 20 169/87 100 08/03/16 17:34 98.5 82 16 145/72 99 Room Air 08/03/16 16:52 83 100 Room Air 08/03/16 15:32 90 16 167/87 99 Room Air 08/03/16 13:42 95 16 156/84 97 Room Air 08/03/16 12:54 100 Room Air 08/03/16 11:49 98 100 Room Air 08/03/16 11:37 98.3 111 18 146/94 98 I/O 08/03/16 08/03/16 08/03/16 08/04/16 08/04/16 08/04/16 07:00 15:00 23:00 07:00 15:00 23:00 Intake Total 300 ml 600 ml Output Total 0 ml 0 ml Balance 300 ml 600 ml Intake Oral 300 ml 600 ml IV Total 0 ml 0 ml Output Urine Total 0 ml 0 ml # Bowel Movements 0 0 Result Diagram: 08/03/16 1315 08/04/16 0348 Imaging Last Impressions Head CT 08/03/16 1245 Signed Impressions: Service Date/Time: Wednesday, August 03, 2016 13:15 - CONCLUSION: 1. Focal area of intraparenchymal hemorrhage with surrounding edema in the watershed distribution between the right parieto-occipital cortex. This was not evident on previous study of 06/11/16. Differential considerations include hemorrhagic infarct versus hemorrhagic mass. Post contrast MRI imaging is warranted for further assessment. Radu Cordova MD Chest X-Ray 08/03/16 1245 Signed Impressions: Service Date/Time: Wednesday, August 03, 2016 13:06 - CONCLUSION: 1. No acute cardiopulmonary findings. Radu Cordova MD Objective Remarks General: No acute distress. Heart: Regular rate and rhythm. No murmur. Lungs: Clear to auscultation bilaterally. No wheezes, rales, or rhonchi. Breathing is nonlabored. Abdomen: Soft, nontender, nondistended. Extremities: No lower extremity edema. Psych: Alert and oriented. Procedures 08/03/16 right internal jugular central venous line placement Urinary Catheter: No Vascular Central Line Catheter: Yes Assessment to: Continue Date of Insertion: August 03, 2016 Line: Central Venous Catheter Side: Right Location: Internal, Jugular A/P Problem List: (1) Intraparenchymal hemorrhage of brain ICD Code: I61.9 Status: Acute (2) ESRD (end stage renal disease) on dialysis ICD Code: N18.6 Status: Chronic (3) DM (diabetes mellitus) ICD Code: E11.9 Status: Chronic (4) HTN (hypertension) ICD Code: I10 Status: Chronic Assessment and Plan 1. Intraparenchymal hemorrhage of the brain: Appreciate neurosurgery recommendations. Follow imaging. Continue PT/OT/ST. Continue neuro checks, seizure precautions. 2. Hypertension: Continue hydralazine. Clonidine as needed. 3. Diabetes mellitus: Glucose was low this morning. Decrease Levemir. Monitor Accu-Cheks and cover with sliding scale insulin. 4. GERD: Continue PPI. 5. End-stage renal disease: Dialysis per nephrology. 6. Hyperlipidemia: Continue statin. 7. DVT prophylaxis: PRISCA Rosa. Avoid chemical prophylaxis secondary to intraparenchymal brain hemorrhage. Problem Qualifiers (1) DM (diabetes mellitus): Bernabe Cruz MD August 04, 2016 10:55
--- NOTE | 2016-08-04 12:45 | HHI.NSPN ---
Note Status Status: Progress Note Interval History Diagnosis Hemorrhagic mass Interval History This is a 51-year-old male with history of end-stage renal disease on hemodialysis anemia, coronary artery disease status post [place], arterial hypertension, diabetes mellitus, congestive heart failure, GERD, anxiety and depression. He presents to emergency room with his for evaluation of altered mental status. His reports that about a month ago, he received medications for sedation for a right-sided AV fistula. Since then he has been intermittently confused and disoriented. He denies headache, dizziness, fever, chills, neck pain, numbness and focal weakness. 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 He received his dialysis yesterday as scheduled. Today he was apparently worse, more anxious, tearful and complained of butterflies in his stomach. He reports of burning sensation in his epigastric area. CT brain showed a focal area of intraparenchymal hemorrhage with surrounding edema in the watershed distribution between the right parieto- occipital cortex. Denies falls or head trauma. He has been started on aspirin fo a week. Neurosurgery was consulted 08/04. He is alert, awake, GCS 15. MRI is pending Labs, Micro, & Vital Signs Results Date Time Temp Pulse Resp B/P Pulse Ox O2 Delivery O2 Flow Rate FiO2 08/04/16 10:00 98 08/04/16 08:00 96 08/04/16 08:00 98.0 92 16 156/73 99 08/04/16 07:00 95 Room Air 08/04/16 06:00 90 08/04/16 04:00 72 08/04/16 04:00 97.9 72 26 136/76 94 08/04/16 03:35 95 21 08/04/16 02:00 74 08/04/16 00:00 86 08/04/16 00:00 98.5 86 16 142/65 98 08/03/16 22:00 78 08/03/16 20:00 98.3 78 26 160/77 99 08/03/16 20:00 78 08/03/16 19:00 99 Room Air 08/03/16 18:20 98.4 88 20 169/87 100 08/03/16 17:34 98.5 82 16 145/72 99 Room Air 08/03/16 16:52 83 100 Room Air 08/03/16 15:32 90 16 167/87 99 Room Air 08/03/16 13:42 95 16 156/84 97 Room Air 08/03/16 12:54 100 Room Air 08/04/16 07:00 Intake Total 900 ml Output Total 0 ml Balance 900 ml Constitutional Vital Signs Date Time Temp Pulse Resp B/P Pulse Ox O2 Delivery O2 Flow Rate FiO2 08/04/16 10:00 98 08/04/16 08:00 96 08/04/16 08:00 98.0 92 16 156/73 99 08/04/16 07:00 95 Room Air 08/04/16 06:00 90 08/04/16 04:00 72 08/04/16 04:00 97.9 72 26 136/76 94 08/04/16 03:35 95 21 08/04/16 02:00 74 08/04/16 00:00 86 08/04/16 00:00 98.5 86 16 142/65 98 08/03/16 22:00 78 08/03/16 20:00 98.3 78 26 160/77 99 08/03/16 20:00 78 08/03/16 19:00 99 Room Air 08/03/16 18:20 98.4 88 20 169/87 100 08/03/16 17:34 98.5 82 16 145/72 99 Room Air 08/03/16 16:52 83 100 Room Air 08/03/16 15:32 90 16 167/87 99 Room Air 08/03/16 13:42 95 16 156/84 97 Room Air 08/03/16 12:54 100 Room Air 08/04/16 07:00 Intake Total 900 ml Output Total 0 ml Balance 900 ml Review of Systems/Exam Exam Mr Garner is alert, awake and oriented to time, place and person. Speech is fluent. GCS 15 Cranial nerve examination demonstrates the pupils to be equal, round, and reactive to light. Extra-ocular movements are intact. Facial motor and sensory function are normal and symmetrical. Gross hearing is intact, bilaterally. The uvula is midline and elevates symmetrically with the soft palate. Sternocleidomastoid and trapezius muscles have normal and symmetrical strength. Other cranial nerves are intact. Neck is soft and supple. Cervical spine has a full range of motion in anterior flexion, extension, lateral bending, and rotation without pain. There is no tenderness to palpation to the spinous processes or paraspinal muscles. Muscle testing reveals normal bulk and tone overall without rigidity, spasticity , fasciculations, or atrophy. Muscle strength is 5/5 in all muscle groups of both upper extremities including deltoid, biceps, triceps, brachioradialis, wrist extension and overhead cleaner. In the lower extremities, strength is 5/5 in both iliopsoas, quadriceps, hamstrings, plantar flexion, dorsiflexion, and extensor hallicus longus. Sensory examination is intact to light touch and sharp/dull discrimination in both the upper and lower extremities, symmetrically. Deep tendon reflexes are 2+ and symmetrical in the biceps, triceps, and brachioradialis, bilaterally, in the upper extremities. In the lower extremities , the patellar and Achilles are 2+, bilaterally. There is a bilateral plantar flexion response. Hoffmanns sign is negative. There is no clonus or other abnormal reflexes noted. Cerebellar examination is intact to [id number] test, rapid rhythmic alternating motion. There is no dysmetria, dysdiadochokinesia, truncal ataxia, or tremor. Medications Current Medications Current Medications Sodium Chloride (NS Flush) 2 ml UNSCH PRN IVF FLUSH AFTER USING IV ACCESS; Start 08/03/16 at 12:45; Stop 08/03/16 at 14:17; Status DC Sodium Chloride (NS Flush) 2 ml UNSCH PRN IV FLUSH FLUSH AFTER USING IV ACCESS ; Start 08/03/16 at 14:00 Sodium Chloride (NS Flush) 2 ml BID IV FLUSH Last administered on 08/04/16t 08: 24; Start 08/03/16 at 21:00 Acetaminophen (Tylenol) 650 mg Q4H PRN PO TEMP > 100.4; Start 08/03/16 at 14:00 Ondansetron HCl (Zofran Inj) 4 mg Q6H PRN IVP NAUSEA OR VOMITING; Start at 14:00 Bisacodyl (Dulcolax Supp) 10 mg DAILY PRN RECTAL CONSTIPATION; Start 08/03/16 at 14:00 Acetaminophen (Tylenol) 650 mg Q6H PRN PO PAIN SCALE 1 TO 2; Start 08/03/16 at 14:00 Acetaminophen/ Hydrocodone Bitart (Wells 5-325 Mg) 1 tab Q4H PRN PO PAIN SCALE 3 TO 5; Start 08/03/16 at 14:00 Naloxone HCl (Narcan Inj) 0.4 mg UNSCH PRN IV SEE LABEL COMMENTS; Start at 14:00 Acetaminophen/ Hydrocodone Bitart (Wells 10-325 Mg) 1 tab Q4H PRN PO PAIN SCALE 6 TO 10; Start 08/03/16 at 14:00 Hydralazine HCl (Apresoline Inj) 10 mg Q6H PRN IV SBP> OR = 170, DBP> OR = 100 ; Start 08/03/16 at 14:15 Clonidine (Catapres) 0.1 mg Q6H PRN PO SBP> OR = 170, DBP> OR = 100 Last administered on 08/04/16 11:06; Start 08/03/16 at 14:15 Insulin Human Regular (NovoLIN R INJ) 6 units ONCE ONCE SQ Last administered on 08/03/16 14:12; Start 08/03/16 at 14:15; Stop 08/03/16 at 14:16; Status DC Dextrose (D50w (Vial) Inj) 25 ml UNSCH PRN IV PUSH HYPOGLYCEMIA-SEE COMMENTS; Start 08/03/16 at 14:15 Glucagon (Glucagon Inj) 1 mg UNSCH PRN OTHER HYPOGLYCEMIA-SEE COMMENTS; Start 08/03/16 at 14:15 Insulin Aspart (NovoLOG SUPPLEMENTAL SCALE) 1 ACHS SLIDING SCALE SQ Last administered on 08/04/16 10:50; Start 08/03/16 at 16:00 Atorvastatin Calcium (Lipitor) 10 mg HS PO Last administered on 08/03/16 21:09 ; Start 08/03/16 at 21:00 Cetirizine HCl (ZyrTEC) 10 mg DAILY PO Last administered on 08/04/16 08:25; Start 08/04/16 at 09:00 Cinacalcet (Sensipar) 30 mg DAILY PO Last administered on 08/04/16 08:24; Start 08/04/16 at 09:00 Mirtazapine (Remeron) 45 mg HS PO Last administered on 08/03/16 21:09; Start at 21:00 Paroxetine HCl (Paxil) 20 mg DAILY PO Last administered on 08/04/16 08:25; Start 08/04/16 at 09:00 Pantoprazole Sodium (Protonix) 20 mg BID PO Last administered on 08/04/16 08:24 ; Start 08/03/16 at 21:00 Diazepam (Valium) 2 mg Q4HR PRN PO ANXIETY Last administered on 08/04/16 11:06 ; Start 08/03/16 at 14:45 Insulin Detemir 16 units 16 units HS SQ Last administered on 08/03/16 21:00; Start 08/03/16 at 21:00; Stop 08/04/16 at 11:04; Status DC Sodium Chloride (NS 1000 ml Inj) 1,000 ml @ 0 mls/hr Q0M PRN IV For Prime & Rinse Back; Start 08/03/16 at 16:31 Heparin Sodium (Porcine) 8000 units 8,000 units UNSCH PRN IVF WITH DIALYSIS; Start 08/03/16 at 16:45 Sodium Chloride 1,000 ml @ 200 mls/hr Q5H PRN IV WITH DIALYSIS; Start 08/03/16 at 16:31 Sodium Chloride (NS 1000 ml Inj) 1,000 ml @ 0 mls/hr Q0M PRN IV WITH DIALYSIS; Start 08/03/16 at 16:31 Mannitol (Mannitol Inj) 12.5 gm UNSCH PRN IV WITH DIALYSIS; Start 08/03/16 at 16 :45 Albumin Human (Albumin 25% Inj) 25 gm UNSCH PRN IV WITH DIALYSIS; Start at 16:45 Sodium Chloride (NS Flush) 5 ml UNSCH PRN IV FLUSH WITH DIALYSIS; Start at 16:45 Heparin Sodium (Porcine) (Heparin Inj) UNSCH PRN .XX WITH DIALYSIS; Start 08/03 at 16:45 Gentamicin Sulfate (Gentamicin (Dialysis) Inj) 20 mg UNSCH PRN IV WITH DIALYSIS ; Start 08/03/16 at 16:45 Ondansetron HCl (Zofran Inj) 4 mg UNSCH PRN IV WITH DIALYSIS; Start 08/03/16 at 16:45 Acetaminophen (Tylenol) 650 mg UNSCH PRN PO for headach, pain, temp > 101F; Start 08/03/16 at 16:45 Diphenhydramine HCl (Benadryl) 25 mg UNSCH PRN PO for hives/itching/anaphylaxis ; Start 08/03/16 at 16:45 Nitroglycerin (Nitrostat Sl) 0.4 mg UNSCH PRN SL CHEST PAIN; Start 08/03/16 at 16:45 Clonidine (Catapres) 0.1 mg UNSCH PRN PO for BP > 180/100 X 2 readings; Start 08/03/16 at 16:45 Epoetin Jesus (Epogen Inj) 10,000 units UNSCH PRN IV WITH DIALYSIS; Start at 16:45 Gelatin (Gelfoam 12 Mm/7 Mm Top) 1 foam UNSCH PRN TOP SEE LABEL COMMENTS; Start 08/03/16 at 16:45 Calcium Acetate (Phoslo) 2,001 mg TID PO Last administered on 08/04/16 08:25; Start 08/03/16 at 18:00 Hydralazine HCl (Apresoline) 50 mg Q8HR PO Last administered on 08/04/16 05:00 ; Start 08/03/16 at 17:30 Lorazepam (Ativan Inj) 2 mg UNSCH X1 IV Last administered on 08/04/16 09:31; Start 08/04/16 at 10:00; Stop 08/04/16 at 23:59 Influenza Virus Vaccine (Flu (Quadrivalent) Vaccine Inj) 0.5 ml ONCE ONCE IM ; Start 08/05/16 at 10:00; Stop 08/05/16 at 10:01 Insulin Detemir (Levemir Inj) 12 units HS SQ ; Start 08/04/16 at 21:00 Medical Decision Making MDM Remarks Last Impressions Brain MRI 08/04/16 0000 Signed Impressions: Service Date/Time: Thursday, August 04, 2016 10:16 - CONCLUSION: 1. Noncontrast MRI limiting the sensitivity for the detection of masses. 2. Focal masslike area of signal intensity with surrounding edema and low signal on the echoplanar weighted images. There is increased signal on the T1-weighted images consistent with the known hemorrhage. This is of concern for a hemorrhagic mass such as a metastatic lesion or primary tumor. A contrast enhanced exam would be helpful. 3. No additional focal abnormalities. Zion Ford MD Head CT 08/03/16 1245 Signed Impressions: Service Date/Time: Wednesday, August 03, 2016 13:15 - CONCLUSION: 1. Focal area of intraparenchymal hemorrhage with surrounding edema in the watershed distribution between the right parieto-occipital cortex. This was not evident on previous study of 06/11/16. Differential considerations include hemorrhagic infarct versus hemorrhagic mass. Post contrast MRI imaging is warranted for further assessment. Radu Cordova MD Chest X-Ray 08/03/16 1240 Signed Impressions: Service Date/Time: Wednesday, August 03, 2016 13:06 - CONCLUSION: 1. No acute cardiopulmonary findings. Radu Cordova MD Attending Statement I reviewed his non contrated MRI. This is not usefu !l. I stongly recommend that he undergoes an MRI with contrast, and then undergo dialysis. Discussed with radiologist. Continue neuro checks in a serial fashion. Placement of ICP monitor is not indicated at this time. Non surgical management. Folllow up MRI of the brain is recommended Hold ASA CHF. Continue home meds Hypertension. Continue to Monitor and treat as needed with antihypertrensives Respiratory. Continue pulmonary toilette, nasotracheal suction, and breathing treatments with nebulizers. PT and OT Nutrition. continue Oral diet Renal. Continue dialysis Endocrine. Continue to Monitor serial Acu checks and SSI for tight control ID continue to monitor for signs of infection GERD. Continue Protonix for stress ulcer prophylaxis Continue Jose Cruz davis and SCD's for DVT prophylaxis Ej Meek MD August 04, 2016 12:45
[2016-08-04] MEDS: EPOETIN ALFA 10,000 UNITS/ML VIAL IV PRN (16:45)
[2016-08-04] MEDS: MIRTAZAPINE 15 MG TAB PO SCH (20:05)
[2016-08-04] MEDS: INSULIN DETEMIR 100 UNITS/ML VIAL SQ SCH (20:06)
[2016-08-04] MEDS: ATORVASTATIN 10 MG TAB PO SCH (20:07)
[2016-08-05] VITALS (13 sets, daily range): BP systolic 124–152; BP diastolic 62–86; PULSE 76–96; RESP 16–20; TEMP 97.9–98.8; O2SAT 95–100
[2016-08-05 04:41] LABS: AUTOMATED NEUTROPHIL # 2.3 TH/MM3 (1.8-7.7); BASOPHIL % 1.2 % (0.0-2.0); EOSINOPHIL # 0.4 TH/MM3 (0-0.4); EOSINOPHIL % 8.6 % (0.0-4.0); HEMATOCRIT 29.2 % (39.0-51.0); HEMO FLAGS DIFF FINAL; LYMPH % 22.1 % (9.0-44.0); LYMPHOCYTE # 0.9 TH/MM3 (1.0-4.8); MEAN CORPUSCULAR HEMOGLOBIN 31.9 PG (27.0-34.0); MEAN CORPUSCULAR HGB CONC 32.6 % (32.0-36.0); MONO % 13.7 % (0.0-8.0); NEUT % 54.4 % (16.0-70.0); PLATELET COUNT 177 TH/MM3 (150-450); RED BLOOD COUNT 2.98 MIL/MM3 (4.50-5.90); WHITE BLOOD COUNT 4.3 TH/MM3 (4.0-11.0)
[2016-08-05 05:02] LABS: BICARBONATE 27.4 MEQ/L (21.0-32.0); POTASSIUM 5.8 MEQ/L (3.5-5.1)
[2016-08-05] MEDS: hydrALAZINE HCL 50 MG TAB PO SCH ×3 (05:25→21:46)
[2016-08-05] MEDS: INSULIN ASPART SUPPLEMENTAL SCALE SQ SCH ×3 (06:13→16:00)
[2016-08-05] MEDS: CETIRIZINE HCL 10 MG TAB PO SCH (08:34)
[2016-08-05] MEDS: CINACALCET HYDROCHLORIDE 30 MG TAB PO SCH (08:34)
[2016-08-05] MEDS: SODIUM CHLORIDE 0.9% FLUSH 10 ML FLUSH IV FLUSH SCH ×2 (08:34→20:00)
[2016-08-05] MEDS: PANTOPRAZOLE SOD 20 MG DELAYED RELEASE TAB PO SCH ×2 (08:34→20:00)
[2016-08-05] MEDS: PARoxetine HCL 20 MG TAB PO SCH (08:34)
[2016-08-05] MEDS: CALCIUM ACETATE 667 MG CAP PO SCH ×3 (08:34→17:11)
[2016-08-05] MEDS: DIAZEPAM 2 MG TAB PO PRN ×2 (09:01→17:11)
--- NOTE | 2016-08-05 09:13 | MG ---
cc: JOSE ACE Sex: M [id number]. Hyperventilation not performed. DESCRIPTION: The recording shows parenchymal hemorrhage, right side. Confused. MEDICATIONS: Valium Remeron Diffuse low to moderate amplitude beta rhythms are noted. The recording overall is synchronous and symmetric, bitemporal muscle artifact is seen. No hemisphere asymmetries are noted. No epileptiform or seizure activity are seen. Photic stimulation was performed without significant posterior driving. IMPRESSION Normal awake appearing EEG, no evidence for a focal or diffuse abnormality. MD ИРИНА Samano/PAPA /8:24 AM /9:03 AM
[2016-08-05] MEDS ORDERED: INFLUENZA VIRUS VACCINE (QUADRIVALENT) 0.5 ML SYR IM ONE (10:00)
--- NOTE | 2016-08-05 10:16 | HHI.PR ---
Subjective Remarks Follow-up diabetes, hypertension. Patient has no complaints at this time. Denies headache, vision change, chest pain, dyspnea. Objective Vitals Vital Signs Date Time Temp Pulse Resp B/P Pulse Ox O2 Delivery O2 Flow Rate FiO2 08/05/16 08:00 81 08/05/16 07:00 97 Room Air 08/05/16 06:00 80 08/05/16 04:00 98.7 78 17 132/71 96 08/05/16 04:00 78 08/05/16 02:00 84 08/05/16 00:20 100 21 08/05/16 00:00 98.8 84 16 124/62 97 08/05/16 00:00 84 08/04/16 22:00 86 08/04/16 20:00 90 08/04/16 20:00 99.0 90 16 112/59 96 08/04/16 19:00 99 Room Air 08/04/16 18:00 100 08/04/16 16:00 98.4 84 15 130/75 98 08/04/16 16:00 84 08/04/16 14:00 90 08/04/16 12:00 96 08/04/16 12:00 98.3 96 20 173/85 98 I/O 08/04/16 08/04/16 08/04/16 08/05/16 08/05/16 08/05/16 07:00 15:00 23:00 07:00 15:00 23:00 Intake Total 600 ml 600 ml 450 ml 250 ml Output Total 0 ml 0 ml 2500 ml 0 ml Balance 600 ml 600 ml -2050 ml 250 ml Intake Oral 600 ml 600 ml 450 ml 250 ml IV Total 0 ml 0 ml 0 ml Output Urine Total 0 ml 0 ml 0 ml 0 ml Hemodialysis 2500 ml # Bowel Movements 0 1 0 0 Result Diagram: 08/05/16 0421 08/05/16 0421 Imaging Last Impressions Brain MRI 08/04/16 0000 Signed Impressions: Service Date/Time: Thursday, August 04, 2016 10:16 - CONCLUSION: 1. Noncontrast MRI limiting the sensitivity for the detection of masses. 2. Focal masslike area of signal intensity with surrounding edema and low signal on the echoplanar weighted images. There is increased signal on the T1-weighted images consistent with the known hemorrhage. This is of concern for a hemorrhagic mass such as a metastatic lesion or primary tumor. A contrast enhanced exam would be helpful. 3. No additional focal abnormalities. Zion Ford MD Head CT 08/03/16 1245 Signed Impressions: Service Date/Time: Wednesday, August 03, 2016 13:15 - CONCLUSION: 1. Focal area of intraparenchymal hemorrhage with surrounding edema in the watershed distribution between the right parieto-occipital cortex. This was not evident on previous study of 06/11/16. Differential considerations include hemorrhagic infarct versus hemorrhagic mass. Post contrast MRI imaging is warranted for further assessment. Radu Cordova MD Chest X-Ray 08/03/16 1245 Signed Impressions: Service Date/Time: Wednesday, August 03, 2016 13:06 - CONCLUSION: 1. No acute cardiopulmonary findings. Radu Cordova MD Objective Remarks General: No acute distress. Heart: Regular rate and rhythm. No murmur. Lungs: Clear to auscultation bilaterally. No wheezes, rales, or rhonchi. Breathing is nonlabored. Abdomen: Soft, nontender, nondistended. Extremities: No lower extremity edema. Psych: Alert and oriented. Procedures 08/03/16 right internal jugular central venous line placement Urinary Catheter: No Vascular Central Line Catheter: Yes Assessment to: Continue Date of Insertion: August 03, 2016 Line: Central Venous Catheter Side: Right Location: Internal, Jugular A/P Problem List: (1) Intraparenchymal hemorrhage of brain ICD Code: I61.9 Status: Acute (2) ESRD (end stage renal disease) on dialysis ICD Code: N18.6 Status: Chronic (3) DM (diabetes mellitus) ICD Code: E11.9 Status: Chronic (4) HTN (hypertension) ICD Code: I10 Status: Chronic Assessment and Plan 1. Intraparenchymal hemorrhage of the brain: Appreciate neurosurgery recommendations. Follow imaging. Continue PT/OT/ST. Continue neuro checks, seizure precautions. Per neurosurgery, patient will need MRI with contrast. This will have to be coordinated with dialysis. Discussed with Dr. Jensen. 2. Hypertension: Continue hydralazine. Clonidine as needed. 3. Diabetes mellitus: Continue Levemir. Monitor Accu-Cheks and cover with sliding scale insulin. Glucose has been consistently in the 300s overnight, however he was hypoglycemic yesterday morning. 4. GERD: Continue PPI. 5. End-stage renal disease: Dialysis per nephrology. 6. Hyperlipidemia: Continue statin. 7. DVT prophylaxis: PRISCA Rosa. Avoid chemical prophylaxis secondary to intraparenchymal brain hemorrhage. Problem Qualifiers (1) DM (diabetes mellitus): Bernabe Cruz MD August 05, 2016 10:16
--- NOTE | 2016-08-05 11:35 | HHI.NSPN ---
Note Status Status: Progress Note Interval History Diagnosis Hemorrhagic mass Interval History This is a 51-year-old male with history of end-stage renal disease on hemodialysis anemia, coronary artery disease status post [place], arterial hypertension, diabetes mellitus, congestive heart failure, GERD, anxiety and depression. He presents to emergency room with his for evaluation of altered mental status. His reports that about a month ago, he received medications for sedation for a right-sided AV fistula. Since then he has been intermittently confused and disoriented. He denies headache, dizziness, fever, chills, neck pain, numbness and focal weakness. 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 He received his dialysis yesterday as scheduled. Today he was apparently worse, more anxious, tearful and complained of butterflies in his stomach. He reports of burning sensation in his epigastric area. CT brain showed a focal area of intraparenchymal hemorrhage with surrounding edema in the watershed distribution between the right parieto- occipital cortex. Denies falls or head trauma. He has been started on aspirin fo a week. Neurosurgery was consulted 08/04. He is alert, awake, GCS 15. MRI is pending Labs, Micro, & Vital Signs Results Date Time Temp Pulse Resp B/P Pulse Ox O2 Delivery O2 Flow Rate FiO2 08/05/16 10:00 84 08/05/16 08:00 97.9 76 18 137/65 98 08/05/16 08:00 81 08/05/16 07:00 97 Room Air 08/05/16 06:00 80 08/05/16 04:00 98.7 78 17 132/71 96 08/05/16 04:00 78 08/05/16 02:00 84 08/05/16 00:20 100 21 08/05/16 00:00 98.8 84 16 124/62 97 08/05/16 00:00 84 08/04/16 22:00 86 08/04/16 20:00 90 08/04/16 20:00 99.0 90 16 112/59 96 08/04/16 19:00 99 Room Air 08/04/16 18:00 100 08/04/16 16:00 98.4 84 15 130/75 98 08/04/16 16:00 84 08/04/16 14:00 90 08/04/16 12:00 96 08/04/16 12:00 98.3 96 20 173/85 98 08/05/16 07:00 Intake Total 1300 ml Output Total 2500 ml Balance -1200 ml Constitutional Vital Signs Date Time Temp Pulse Resp B/P Pulse Ox O2 Delivery O2 Flow Rate FiO2 08/05/16 10:00 84 08/05/16 08:00 97.9 76 18 137/65 98 08/05/16 08:00 81 08/05/16 07:00 97 Room Air 08/05/16 06:00 80 08/05/16 04:00 98.7 78 17 132/71 96 08/05/16 04:00 78 08/05/16 02:00 84 08/05/16 00:20 100 21 08/05/16 00:00 98.8 84 16 124/62 97 08/05/16 00:00 84 08/04/16 22:00 86 08/04/16 20:00 90 08/04/16 20:00 99.0 90 16 112/59 96 08/04/16 19:00 99 Room Air 08/04/16 18:00 100 08/04/16 16:00 98.4 84 15 130/75 98 08/04/16 16:00 84 08/04/16 14:00 90 08/04/16 12:00 96 08/04/16 12:00 98.3 96 20 173/85 98 08/05/16 07:00 Intake Total 1300 ml Output Total 2500 ml Balance -1200 ml Review of Systems/Exam Exam Mr Garner is alert, awake and oriented to time, place and person. Speech is fluent. GCS 15 Cranial nerve examination demonstrates the pupils to be equal, round, and reactive to light. Extra-ocular movements are intact. Facial motor and sensory function are normal and symmetrical. Gross hearing is intact, bilaterally. The uvula is midline and elevates symmetrically with the soft palate. Sternocleidomastoid and trapezius muscles have normal and symmetrical strength. Other cranial nerves are intact. Neck is soft and supple. Cervical spine has a full range of motion in anterior flexion, extension, lateral bending, and rotation without pain. There is no tenderness to palpation to the spinous processes or paraspinal muscles. Muscle testing reveals normal bulk and tone overall without rigidity, spasticity , fasciculations, or atrophy. Muscle strength is 5/5 in all muscle groups of both upper extremities including deltoid, biceps, triceps, brachioradialis, wrist extension and nitric acid concentrator operator. In the lower extremities, strength is 5/5 in both iliopsoas, quadriceps, hamstrings, plantar flexion, dorsiflexion, and extensor hallicus longus. Sensory examination is intact to light touch and sharp/dull discrimination in both the upper and lower extremities, symmetrically. Deep tendon reflexes are 2+ and symmetrical in the biceps, triceps, and brachioradialis, bilaterally, in the upper extremities. In the lower extremities , the patellar and Achilles are 2+, bilaterally. There is a bilateral plantar flexion response. Hoffmanns sign is negative. There is no clonus or other abnormal reflexes noted. Cerebellar examination is intact to [id number] test, rapid rhythmic alternating motion. There is no dysmetria, dysdiadochokinesia, truncal ataxia, or tremor. Medical Decision Making [facility] Remarks Last Impressions Brain MRI 08/04/16 0000 Signed Impressions: Service Date/Time: Thursday, August 04, 2016 10:16 - CONCLUSION: 1. Noncontrast MRI limiting the sensitivity for the detection of masses. 2. Focal masslike area of signal intensity with surrounding edema and low signal on the echoplanar weighted images. There is increased signal on the T1-weighted images consistent with the known hemorrhage. This is of concern for a hemorrhagic mass such as a metastatic lesion or primary tumor. A contrast enhanced exam would be helpful. 3. No additional focal abnormalities. Zion Ford MD Head CT 08/03/16 1245 Signed Impressions: Service Date/Time: Wednesday, August 03, 2016 13:15 - CONCLUSION: 1. Focal area of intraparenchymal hemorrhage with surrounding edema in the watershed distribution between the right parieto-occipital cortex. This was not evident on previous study of 06/11/16. Differential considerations include hemorrhagic infarct versus hemorrhagic mass. Post contrast MRI imaging is warranted for further assessment. Radu Cordova MD Chest X-Ray 08/03/16 1247 Signed Impressions: Service Date/Time: Wednesday, August 03, 2016 13:06 - CONCLUSION: 1. No acute cardiopulmonary findings. Radu Cordova MD Plan Plan Remarks 51 y/o male with right parietal hemorrhagic mass Attending Statement Continue neuro checks in a serial fashion. unable to obtain MRI Brain w/ contrast per radiologist CT Brain w/wo contrast please CHF. Continue home meds Hypertension. Monitor and treat as needed with antihypertrensives CAD. Hold ASA Respiratory. pulmonary toilette, nasotracheal suction, and breathing treatments with nebulizers. PT and OT eval Nutrition. Oral diet Bursitis and edema in her right knee. Consult orthopedics, she is well known by dr Ari Teresa Renal. Continue dialysis Endocrine. Monitor serial Acu checks and SSI for tight control ID monitor for signs of infection GERD. Protonix for stress ulcer prophylaxis Jose Cruz davis and SCD's for DVT prophylaxis Ej Meek MD August 05, 2016 11:35
[2016-08-05] MEDS ORDERED: INSULIN HUMAN REGULAR 1,000 UNITS/10 ML VIAL SQ ONE (19:00)
[2016-08-05] MEDS: ATORVASTATIN 10 MG TAB PO SCH (20:00)
[2016-08-05] MEDS: INSULIN DETEMIR 100 UNITS/ML VIAL SQ SCH (20:00)
[2016-08-05] MEDS: MEDIUM DOSE INSULIN NOVOLOG SUPPLEMENTAL SCALE SQ SCH (20:00)
[2016-08-05] MEDS: MIRTAZAPINE 15 MG TAB PO SCH (20:00)
[2016-08-06] VITALS (10 sets, daily range): BP systolic 113–165; BP diastolic 67–96; PULSE 82–92; RESP 18–26; TEMP 96.9–98.4; O2SAT 95–100
[2016-08-06 04:32] LABS: BICARBONATE 26.3 MEQ/L (21.0-32.0); POTASSIUM 4.8 MEQ/L (3.5-5.1)
[2016-08-06] MEDS: hydrALAZINE HCL 50 MG TAB PO SCH ×3 (05:11→20:08)
[2016-08-06] MEDS: MEDIUM DOSE INSULIN NOVOLOG SUPPLEMENTAL SCALE SQ SCH ×4 (06:06→20:03)
[2016-08-06] MEDS: SODIUM CHLORIDE 0.9% FLUSH 10 ML FLUSH IV FLUSH SCH ×2 (09:06→20:04)
[2016-08-06] MEDS: CINACALCET HYDROCHLORIDE 30 MG TAB PO SCH (09:06)
[2016-08-06] MEDS: DIAZEPAM 2 MG TAB PO PRN (09:06)
[2016-08-06] MEDS: PARoxetine HCL 20 MG TAB PO SCH (09:06)
[2016-08-06] MEDS: PANTOPRAZOLE SOD 20 MG DELAYED RELEASE TAB PO SCH ×2 (09:06→20:05)
[2016-08-06] MEDS: CALCIUM ACETATE 667 MG CAP PO SCH ×3 (09:06→18:00)
[2016-08-06] MEDS: CETIRIZINE HCL 10 MG TAB PO SCH (09:06)
--- NOTE | 2016-08-06 10:12 | HHI.PR ---
Subjective Remarks Follow-up diabetes mellitus. Patient states that he had symptoms when his glucose was high and when it was low. No nausea/vomiting. Denies chest pain, dyspnea. Objective Vitals Vital Signs Date Time Temp Pulse Resp B/P Pulse Ox O2 Delivery O2 Flow Rate FiO2 08/06/16 09:14 100 21 08/06/16 06:00 88 08/06/16 04:00 98.4 88 26 142/82 95 08/06/16 04:00 88 08/06/16 02:00 90 08/06/16 00:00 98.4 82 18 131/67 97 08/06/16 00:00 82 08/05/16 22:00 90 08/05/16 20:00 98.3 88 20 150/86 97 08/05/16 20:00 88 08/05/16 19:00 99 Room Air 08/05/16 18:00 95 08/05/16 16:00 90 08/05/16 16:00 98.0 90 18 152/83 97 08/05/16 14:00 96 08/05/16 12:00 96 08/05/16 12:00 98.3 96 20 126/62 95 I/O 08/05/16 08/05/16 08/05/16 08/06/16 08/06/16 08/06/16 06:59 14:59 22:59 06:59 14:59 22:59 Intake Total 250 ml 480 ml 600 ml 1000 ml Output Total 0 ml 0 ml 0 ml 0 ml Balance 250 ml 480 ml 600 ml 1000 ml Intake Oral 250 ml 480 ml 600 ml 1000 ml IV Total 0 ml 0 ml 0 ml 0 ml Output Urine Total 0 ml 0 ml 0 ml 0 ml # Bowel Movements 0 0 0 1 Result Diagram: 08/05/16 0421 08/06/16 0324 Imaging Last Impressions Brain MRI 08/04/16 0000 Signed Impressions: Service Date/Time: Thursday, August 04, 2016 10:16 - CONCLUSION: 1. Noncontrast MRI limiting the sensitivity for the detection of masses. 2. Focal masslike area of signal intensity with surrounding edema and low signal on the echoplanar weighted images. There is increased signal on the T1-weighted images consistent with the known hemorrhage. This is of concern for a hemorrhagic mass such as a metastatic lesion or primary tumor. A contrast enhanced exam would be helpful. 3. No additional focal abnormalities. Zion Ford MD Head CT 08/03/16 1245 Signed Impressions: Service Date/Time: Wednesday, August 03, 2016 13:15 - CONCLUSION: 1. Focal area of intraparenchymal hemorrhage with surrounding edema in the watershed distribution between the right parieto-occipital cortex. This was not evident on previous study of 06/11/16. Differential considerations include hemorrhagic infarct versus hemorrhagic mass. Post contrast MRI imaging is warranted for further assessment. Radu Cordova MD Chest X-Ray 08/03/16 1245 Signed Impressions: Service Date/Time: Wednesday, August 03, 2016 13:06 - CONCLUSION: 1. No acute cardiopulmonary findings. Radu Cordova MD Objective Remarks General: No acute distress. Heart: Regular rate and rhythm. No murmur. Lungs: Clear to auscultation bilaterally. No wheezes, rales, or rhonchi. Breathing is nonlabored. Abdomen: Soft, nontender, nondistended. Extremities: No lower extremity edema. Psych: Alert and oriented. Procedures 08/03/16 right internal jugular central venous line placement Urinary Catheter: No Vascular Central Line Catheter: Yes Assessment to: Continue Date of Insertion: August 03, 2016 Line: Central Venous Catheter Side: Right Location: Internal, Jugular A/P Problem List: (1) Intraparenchymal hemorrhage of brain ICD Code: I61.9 Status: Acute (2) ESRD (end stage renal disease) on dialysis ICD Code: N18.6 Status: Chronic (3) DM (diabetes mellitus) ICD Code: E11.9 Status: Chronic (4) HTN (hypertension) ICD Code: I10 Status: Chronic Assessment and Plan 1. Intraparenchymal hemorrhage of the brain: Appreciate neurosurgery recommendations. Follow imaging. Continue PT/OT/ST. Continue neuro checks, seizure precautions. Per neurosurgery, patient will need MRI with contrast. This will have to be coordinated with dialysis. 2. Hypertension: Continue hydralazine. Clonidine as needed. 3. Diabetes mellitus: Continue Levemir. Monitor Accu-Cheks and cover with sliding scale insulin. The patient has had fluctuations between hyperglycemia and hypoglycemia. Received 5 units of regular insulin yesterday afternoon. Continue diabetic diet. 4. GERD: Continue PPI. 5. End-stage renal disease: Dialysis per nephrology. 6. Hyperlipidemia: Continue statin. 7. DVT prophylaxis: PRISCA Rosa. Avoid chemical prophylaxis secondary to intraparenchymal brain hemorrhage. Discharge Planning Transfer to med/surg floor. Problem Qualifiers (1) DM (diabetes mellitus): Bernabe Cruz MD August 06, 2016 10:12
--- NOTE | 2016-08-06 11:36 | HHI.NPPN ---
Subjective Renal Failure: Chronic, End Stage Renal Disease Interval History He is awake/alert. at bedside. Vitals stable. (Sho Laughlin) Review of Systems General General Remarks no current complaints (Sho Laughlin) Objective Data Data 08/05/16 08/06/16 18:59 06:59 Intake Total 480 ml 1600 ml Output Total 0 ml 0 ml Balance 480 ml 1600 ml Intake Oral 480 ml 1600 ml IV Total 0 ml 0 ml Output Urine Total 0 ml 0 ml # Bowel Movements 0 1 Vital Signs Date Time Temp Pulse Resp B/P Pulse Ox O2 Delivery O2 Flow Rate FiO2 08/06/16 09:14 100 21 08/06/16 06:00 88 08/06/16 04:00 98.4 88 26 142/82 95 08/06/16 04:00 88 08/06/16 02:00 90 08/06/16 00:00 98.4 82 18 131/67 97 08/06/16 00:00 82 08/05/16 22:00 90 08/05/16 20:00 98.3 88 20 150/86 97 08/05/16 20:00 88 08/05/16 19:00 99 Room Air 08/05/16 18:00 95 08/05/16 16:00 90 08/05/16 16:00 98.0 90 18 152/83 97 08/05/16 14:00 96 08/05/16 12:00 96 08/05/16 12:00 98.3 96 20 126/62 95 (Sho Laughlin) -: 08/05/16 0421 08/06/16 0324 Imaging Last 72 hours Impressions Brain MRI 08/04/16 0000 Signed Impressions: Service Date/Time: Thursday, August 04, 2016 10:16 - CONCLUSION: 1. Noncontrast MRI limiting the sensitivity for the detection of masses. 2. Focal masslike area of signal intensity with surrounding edema and low signal on the echoplanar weighted images. There is increased signal on the T1-weighted images consistent with the known hemorrhage. This is of concern for a hemorrhagic mass such as a metastatic lesion or primary tumor. A contrast enhanced exam would be helpful. 3. No additional focal abnormalities. Zion Ford MD Head CT 08/03/16 1245 Signed Impressions: Service Date/Time: Wednesday, August 03, 2016 13:15 - CONCLUSION: 1. Focal area of intraparenchymal hemorrhage with surrounding edema in the watershed distribution between the right parieto-occipital cortex. This was not evident on previous study of 06/11/16. Differential considerations include hemorrhagic infarct versus hemorrhagic mass. Post contrast MRI imaging is warranted for further assessment. Radu Cordova MD Chest X-Ray 08/03/16 1245 Signed Impressions: Service Date/Time: Wednesday, August 03, 2016 13:06 - CONCLUSION: 1. No acute cardiopulmonary findings. Radu Cordova MD (QianSho B. POWER LINEMAN) Physical Exam General Appearance: Well Developed, Well Nourished, No Acute Distress (QianSho B. POWER LINEMAN) Eyes Eye Remarks right sclera with chronic erythema (QianHso B. POWER LINEMAN) Throat Throat Exam: Oral Mucosa [place] & Moist (QianSho B. POWER LINEMAN) Pulmonary Resp Exam: Clear Bilaterally, Breath Sounds Equal (QianSho B. POWER LINEMAN) Cardiology CV Exam: Regular, Normal Sinus Rhythm, Good Perfusion (QianSho B. POWER LINEMAN) Gastrointestinal/Abdomen GI Exam: Soft, Non-Tender, Bowel Sounds Present (QianSho B. POWER LINEMAN) Musculoskeletal MS Exam: Joints Intact, Good Strength (QianSho B. POWER LINEMAN) Integumentary Skin Exam: Warm, Dry (QianSho B. POWER LINEMAN) Extremeties Extremities Exam: No Edema, Pedal Pulses Palpable (QianSho B. POWER LINEMAN) Neurologic Neuro Exam: Alert, Awake, Oriented, Speech Clear, Moving All Extremities ( QianSho B. POWER LINEMAN) Psychiatric Psych Exam: Appropriate Responses (QianSho B. POWER LINEMAN) Assessment/Plan Discussed Condition With: Patient, Spouse Problem List: (1) ESRD (end stage renal disease) on dialysis Plan: Resume TTS dialysis, he is due tomorrow no current electrolyte concerns he has graft right arm for HD avoid IVF he is anuric at baseline daily renal panel continue Sensipar for secondary hyperparathyroidism (2) Altered mental status Plan: CT showing hemorrhagic mass or stroke workup in progress, he has no deficit ASA held continue fall precautions, BP control, avoid sedating medications neurosurgery following, and recommend MRI with contrast to evaluate. Gadolinium is contraindicated in patient with GFR less than 30 and those on dialysis due to risk of nephrogenic systemic fibrosis. If ABSOLUTELY necessary we will dialyze the patient immediately after. If possible we recommend a CT angio or CT with contrast to evaluate mass/lesion. Will defer to neurosurgery on how to proceed. The patient and are aware of risks associated with MRI contrast administration. (3) DM (diabetes mellitus) Plan: improving, recommend glucose 140-180 mg/dL resume insulin per home medications (4) HTN (hypertension) Plan: tight BP control on hydralazine, (5) Anemia Plan: continue epogen with dialysis begin oral iron (6) Metabolic bone disease Plan: continue phoslo intermittently check phosphorus level (Sho Laughlin) Problem List: (1) ESRD (end stage renal disease) on dialysis Plan: Resume TTS dialysis, he is due tomorrow no current electrolyte concerns he has graft right arm for HD avoid IVF he is anuric at baseline daily renal panel continue Sensipar for secondary hyperparathyroidism (2) Altered mental status Plan: CT showing hemorrhagic mass or stroke workup in progress, he has no deficit ASA held continue fall precautions, BP control, avoid sedating medications neurosurgery following, and recommend MRI with contrast to evaluate. Gadolinium is contraindicated in patient with GFR less than 30 and those on dialysis due to risk of nephrogenic systemic fibrosis. If ABSOLUTELY necessary we will dialyze the patient immediately after. If possible we recommend a CT angio or CT with contrast to evaluate mass/lesion. Will defer to neurosurgery on how to proceed. The patient and are aware of risks associated with MRI contrast administration. (3) DM (diabetes mellitus) Plan: improving, recommend glucose 140-180 mg/dL resume insulin per home medications (4) HTN (hypertension) Plan: tight BP control on hydralazine, (5) Anemia Plan: continue epogen with dialysis begin oral iron (6) Metabolic bone disease Plan: continue phoslo intermittently check phosphorus level Plan patient was seen and examined. Discussed the risk for nephrogenic systemic fibrosis with use of Gadolinium with MRI. Patient and his are aware of this risk. If MRI with contrast is absolutely necessary, we will dialyze the patient after the procedure. (George Childs MD) Problem Qualifiers (1) DM (diabetes mellitus): Sho Laughlin August 06, 2016 11:35 George Childs MD August 06, 2016 16:33
[2016-08-06] MEDS: FERROUS SULFATE 325 MG (65 MG ELEMENTAL IRON) TAB PO SCH (13:15)
[2016-08-06] MEDS: ONDANSETRON HCL 4 MG/2 ML VIAL IVP PRN (14:10)
--- NOTE | 2016-08-06 16:25 | HHI.NSPN ---
(Linh Garner) Note Status Status: Progress Note (Linh Garner) Interval History Interval History This is a 51-year-old male with history of end-stage renal disease on hemodialysis anemia, coronary artery disease status post [place], arterial hypertension, diabetes mellitus, congestive heart failure, GERD, anxiety and depression. He presents to emergency room with his for evaluation of altered mental status. His reports that about a month ago, he received medications for sedation for a right-sided AV fistula. Since then he has been intermittently confused and disoriented. He denies headache, dizziness, fever, chills, neck pain, numbness and focal weakness. 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 He received his dialysis yesterday as scheduled. Today he was apparently worse, more anxious, tearful and complained of butterflies in his stomach. He reports of burning sensation in his epigastric area. CT brain showed a focal area of intraparenchymal hemorrhage with surrounding edema in the watershed distribution between the right parieto- occipital cortex. Denies falls or head trauma. He has been started on aspirin fo a week. Neurosurgery was consulted 08/06: no changes neurologically (Linh Garner) Labs, Micro, & Vital Signs Results Date Time Temp Pulse Resp B/P Pulse Ox O2 Delivery O2 Flow Rate FiO2 08/06/16 14:49 96.9 88 19 155/96 96 08/06/16 12:00 98.0 82 23 118/85 97 08/06/16 12:00 82 08/06/16 10:00 92 08/06/16 09:14 100 21 08/06/16 08:00 90 08/06/16 08:00 98.1 90 18 113/91 98 08/06/16 07:00 94 Room Air 08/06/16 06:00 88 08/06/16 04:00 98.4 88 26 142/82 95 08/06/16 04:00 88 08/06/16 02:00 90 08/06/16 00:00 98.4 82 18 131/67 97 08/06/16 00:00 82 08/05/16 22:00 90 08/05/16 20:00 98.3 88 20 150/86 97 08/05/16 20:00 88 08/05/16 19:00 99 Room Air 08/05/16 18:00 95 08/06/16 06:59 Intake Total 2080 ml Output Total 0 ml Balance 2080 ml Constitutional Vital Signs Date Time Temp Pulse Resp B/P Pulse Ox O2 Delivery O2 Flow Rate FiO2 08/06/16 14:49 96.9 88 19 155/96 96 08/06/16 12:00 98.0 82 23 118/85 97 08/06/16 12:00 82 08/06/16 10:00 92 08/06/16 09:14 100 21 08/06/16 08:00 90 08/06/16 08:00 98.1 90 18 113/91 98 08/06/16 07:00 94 Room Air 08/06/16 06:00 88 08/06/16 04:00 98.4 88 26 142/82 95 08/06/16 04:00 88 08/06/16 02:00 90 08/06/16 00:00 98.4 82 18 131/67 97 08/06/16 00:00 82 08/05/16 22:00 90 08/05/16 20:00 98.3 88 20 150/86 97 08/05/16 20:00 88 08/05/16 19:00 99 Room Air 08/05/16 18:00 95 08/06/16 06:59 Intake Total 2080 ml Output Total 0 ml Balance 2080 ml (Linh Garner) Review of Systems/Exam Exam Mr Garner is alert, awake and oriented to time, place and person. Speech is fluent. GCS 15 Cranial nerve examination demonstrates the pupils to be equal, round, and reactive to light. Extra-ocular movements are intact. Facial motor and sensory function are normal and symmetrical. Gross hearing is intact, bilaterally. Neck is soft and supple. Muscle strength is 5/5 in all muscle groups of both upper extremities including deltoid, biceps, triceps, brachioradialis, wrist extension and chemical economist. In the lower extremities, strength is 5/5 in both iliopsoas, quadriceps, hamstrings, plantar flexion, dorsiflexion, and extensor hallicus longus. Sensory examination is intact to light touch in both the upper and lower extremities, symmetrically. Cerebellar examination is intact to [id number] test (Linh Garner) Medications Current Medications Current Medications Medications (Trade) Dose Ordered Sig/Suzan Route PRN Reason Start Time Stop Time Status Last Admin Dose Admin Sodium Chloride (NS Flush) 2 ml UNSCH PRN IV FLUSH FLUSH AFTER USING IV ACCESS 08/03/16 14:00 Sodium Chloride (NS Flush) 2 ml BID IV FLUSH 08/03/16 21:00 08/06/16 09:06 Acetaminophen (Tylenol) 650 mg Q4H PRN PO TEMP > 100.4 08/03/16 14:00 Ondansetron HCl (Zofran Inj) 4 mg Q6H PRN IVP NAUSEA OR VOMITING 08/03/16 14:00 08/06/16 14:10 Bisacodyl (Dulcolax Supp) 10 mg DAILY PRN RECTAL CONSTIPATION 08/03/16 14:00 Acetaminophen (Tylenol) 650 mg Q6H PRN PO PAIN SCALE 1 TO 2 08/03/16 14:00 Acetaminophen/ Hydrocodone Bitart ([place] 5-325 Mg) 1 tab Q4H PRN PO PAIN SCALE 3 TO 5 08/03/16 14:00 Naloxone HCl (Narcan Inj) 0.4 mg UNSCH PRN IV SEE LABEL COMMENTS 08/03/16 14:00 Acetaminophen/ Hydrocodone Bitart ([place] 10-325 Mg) 1 tab Q4H PRN PO PAIN SCALE 6 TO 10 08/03/16 14:00 Hydralazine HCl (Apresoline Inj) 10 mg Q6H PRN IV SBP> OR = 170, DBP> OR = 100 08/03/16 14:15 Clonidine (Catapres) 0.1 mg Q6H PRN PO SBP> OR = 170, DBP> OR = 100 08/03/16 14:15 08/04/16 11:06 Dextrose (D50w (Vial) Inj) 25 ml UNSCH PRN IV PUSH HYPOGLYCEMIA-SEE COMMENTS 08/03/16 14:15 Glucagon (Glucagon Inj) 1 mg UNSCH PRN OTHER HYPOGLYCEMIA-SEE COMMENTS 08/03/16 14:15 Atorvastatin Calcium (Lipitor) 10 mg HS PO 08/03/16 21:00 08/05/16 20:00 Cetirizine HCl (ZyrTEC) 10 mg DAILY PO 08/04/16 09:00 08/06/16 09:06 Cinacalcet (Sensipar) 30 mg DAILY PO 08/04/16 09:00 08/06/16 09:06 Mirtazapine (Remeron) 45 mg HS PO 08/03/16 21:00 08/05/16 20:00 Paroxetine HCl (Paxil) 20 mg DAILY PO 08/04/16 09:00 08/06/16 09:06 Pantoprazole Sodium (Protonix) 20 mg BID PO 08/03/16 21:00 08/06/16 09:06 Diazepam 2 mg 2 mg Q4HR PRN PO ANXIETY 08/03/16 14:45 08/06/16 09:06 Sodium Chloride (NS 1000 ml Inj) 1,000 ml @ 0 mls/hr Q0M PRN IV For Prime & Rinse Back 08/03/16 16:31 Heparin Sodium (Porcine) 8000 units 8,000 units UNSCH PRN IVF WITH DIALYSIS 08/03/16 16:45 Sodium Chloride 1,000 ml @ 200 mls/hr Q5H PRN IV WITH DIALYSIS 08/03/16 16:31 Sodium Chloride (NS 1000 ml Inj) 1,000 ml @ 0 mls/hr Q0M PRN IV WITH DIALYSIS 08/03/16 16:31 Mannitol (Mannitol Inj) 12.5 gm UNSCH PRN IV WITH DIALYSIS 08/03/16 16:45 Albumin Human (Albumin 25% Inj) 25 gm UNSCH PRN IV WITH DIALYSIS 08/03/16 16:45 Sodium Chloride (NS Flush) 5 ml UNSCH PRN IV FLUSH WITH DIALYSIS 08/03/16 16:45 Heparin Sodium (Porcine) (Heparin Inj) UNSCH PRN .XX WITH DIALYSIS 08/03/16 16:45 Gentamicin Sulfate (Gentamicin (Dialysis) Inj) 20 mg UNSCH PRN IV WITH DIALYSIS 08/03/16 16:45 Ondansetron HCl (Zofran Inj) 4 mg UNSCH PRN IV WITH DIALYSIS 08/03/16 16:45 Acetaminophen (Tylenol) 650 mg UNSCH PRN PO for headach, pain, temp > 101F 08/03/16 16:45 Diphenhydramine HCl (Benadryl) 25 mg UNSCH PRN PO for hives/itching/anaphylaxis 08/03/16 16:45 Nitroglycerin (Nitrostat Sl) 0.4 mg UNSCH PRN SL CHEST PAIN 08/03/16 16:45 Clonidine (Catapres) 0.1 mg UNSCH PRN PO for BP > 180/100 X 2 readings 08/03/16 16:45 Epoetin Jesus (Epogen Inj) 10,000 units UNSCH PRN IV WITH DIALYSIS 08/03/16 16:45 08/04/16 16:45 Gelatin (Gelfoam 12 Mm/7 Mm Top) 1 foam UNSCH PRN TOP SEE LABEL COMMENTS 08/03/16 16:45 Calcium Acetate (Phoslo) 2,001 mg TID PO 08/03/16 18:00 08/06/16 13:15 Hydralazine HCl (Apresoline) 50 mg Q8HR PO 08/03/16 17:30 08/06/16 13:15 Insulin Detemir (Levemir Inj) 12 units HS SQ 08/04/16 21:00 08/05/16 20:00 Ferrous Sulfate (Ferrous Sulfate) 325 mg DAILY PO 08/06/16 12:00 08/06/16 13:15 (Linh Garner) Medical Decision Making MDM Remarks 51 y/o male with right parietal hemorrhagic mass, unclear etiology at this time (Linh Garner) Plan Plan Remarks Dr. Meek awiating MRI Brain with contrast to assess for poss underlying malignancy, infectious next dialysis pending tomorrow, obtain MRI prior to dialysis dw nursing (Linh Garner) Attending Statement The exam, history, and the medical decision-making described in the above note were completed with the assistance of the mid-level provider. I reviewed and agree with the findings presented. I attest that I had a [id number] encounter with the patient on the same day, and personally performed and documented my assessment and findings in the medical record. (Ej Meek MD) Linh Garner August 06, 2016 16:25 Ej Meek MD August 07, 2016 21:44
[2016-08-06] MEDS: INSULIN DETEMIR 100 UNITS/ML VIAL SQ SCH (20:03)
[2016-08-06] MEDS: ATORVASTATIN 10 MG TAB PO SCH (20:05)
[2016-08-06] MEDS: MIRTAZAPINE 15 MG TAB PO SCH (20:05)
[2016-08-07] MEDS: hydrALAZINE HCL 50 MG TAB PO SCH ×3 (05:47→23:31)
[2016-08-07 05:50] LABS: BASOPHIL % 0.5 % (0.0-2.0); EOSINOPHIL # 0.5 TH/MM3 (0-0.4); EOSINOPHIL % 8.6 % (0.0-4.0); HEMATOCRIT 28.3 % (39.0-51.0); HEMO FLAGS DIFF FINAL; LYMPH % 24.8 % (9.0-44.0); LYMPHOCYTE # 1.3 TH/MM3 (1.0-4.8); MEAN CELL VOLUME 96.1 FL (80.0-100.0); MEAN CORPUSCULAR HEMOGLOBIN 31.8 PG (27.0-34.0); MEAN CORPUSCULAR HGB CONC 33.1 % (32.0-36.0); NEUT % 56.1 % (16.0-70.0); PLATELET COUNT 189 TH/MM3 (150-450); RED BLOOD COUNT 2.94 MIL/MM3 (4.50-5.90); WHITE BLOOD COUNT 5.3 TH/MM3 (4.0-11.0)
[2016-08-07 06:07] LABS: BICARBONATE 27.7 MEQ/L (21.0-32.0); POTASSIUM 5.8 MEQ/L (3.5-5.1)
[2016-08-07] MEDS: MEDIUM DOSE INSULIN NOVOLOG SUPPLEMENTAL SCALE SQ SCH ×4 (06:33→22:02)
[2016-08-07 08:00] VITALS: BP 157/82; PULSE 100; RESP 18; TEMP 96.9; O2SAT 94
[2016-08-07] MEDS: CALCIUM ACETATE 667 MG CAP PO SCH ×3 (08:09→18:10)
[2016-08-07] MEDS: DIAZEPAM 2 MG TAB PO PRN ×2 (08:57→18:10)
[2016-08-07] MEDS: PANTOPRAZOLE SOD 20 MG DELAYED RELEASE TAB PO SCH ×2 (09:00→21:56)
[2016-08-07] MEDS: CETIRIZINE HCL 10 MG TAB PO SCH (09:00)
[2016-08-07] MEDS: FERROUS SULFATE 325 MG (65 MG ELEMENTAL IRON) TAB PO SCH (09:00)
[2016-08-07] MEDS: SODIUM CHLORIDE 0.9% FLUSH 10 ML FLUSH IV FLUSH SCH ×2 (09:00→21:00)
[2016-08-07] MEDS: CINACALCET HYDROCHLORIDE 30 MG TAB PO SCH (09:00)
[2016-08-07] MEDS: PARoxetine HCL 20 MG TAB PO SCH (09:00)
[2016-08-07] MEDS ORDERED: LORazepam 2 MG/ML VIAL IV PUSH ONE (09:15)
--- NOTE | 2016-08-07 10:47 | HHI.NPPN ---
Subjective Renal Failure: Chronic, End Stage Renal Disease Interval History Was in route for MRI. Per pt the study was cancelled. No acute concerns today. (Sho Laughlin) Review of Systems General General Remarks no current complaints (Sho Laughlin) Objective Data Data 08/06/16 08/07/16 18:59 06:59 Intake Total 940 ml 720 ml Output Total 1100 ml Balance 940 ml -380 ml Intake Oral 940 ml 720 ml IV Total 0 ml Output Urine Total 1100 ml # Voids 2 # Bowel Movements 1 0 Vital Signs Date Time Temp Pulse Resp B/P Pulse Ox O2 Delivery O2 Flow Rate FiO2 08/07/16 08:00 96.9 100 18 157/82 94 08/06/16 20:00 83 08/06/16 20:00 98 Room Air 08/06/16 20:00 96.9 83 20 165/88 98 08/06/16 14:49 96.9 88 19 155/96 96 08/06/16 12:00 98.0 82 23 118/85 97 08/06/16 12:00 82 (Sho Laughlin) -: 08/07/16 0434 08/07/16 0434 Physical Exam General Appearance: Well Developed, Well Nourished, No Acute Distress, Comfortable ( Sho Laughlin) Eyes Eye Remarks right sclera with chronic erythema (Sho Laughlin) Throat Throat Exam: Oral Mucosa [place] & Moist (Sho Laughlin) Pulmonary Resp Exam: Clear Bilaterally, Breath Sounds Equal (Sho Laughlin) Cardiology CV Exam: Regular, Normal Sinus Rhythm, Good Perfusion (Sho Laughlin) Gastrointestinal/Abdomen GI Exam: Soft, Non-Tender, Bowel Sounds Present (Sho Laughlin) Musculoskeletal MS Exam: Joints Intact, Good Strength (Sho Laughlin) Integumentary Skin Exam: Warm, Dry (Sho Laughlin) Extremeties Extremities Exam: No Edema, Pedal Pulses Palpable (Sho Laughlin) Neurologic Neuro Exam: Alert, Awake, Oriented, Speech Clear, Moving All Extremities ( Sho Laughlin) Psychiatric Psych Exam: Appropriate Responses (Sho Laughlin) Assessment/Plan Discussed Condition With: Patient, Spouse Problem List: (1) ESRD (end stage renal disease) on dialysis Plan: Resume TTS dialysis, he is due today no current electrolyte concerns he has graft right arm for HD avoid IVF he is anuric at baseline daily renal panel continue Sensipar for secondary hyperparathyroidism (2) Altered mental status Plan: CT showing hemorrhagic mass or stroke workup in progress, he has no deficit ASA held continue fall precautions, BP control, avoid sedating medications neurosurgery following, and recommend MRI with contrast to evaluate. Gadolinium is contraindicated in patient with GFR less than 30 and those on dialysis due to risk of nephrogenic systemic fibrosis. If ABSOLUTELY necessary we will dialyze the patient immediately after today. If possible we recommend a CT angio or CT with contrast to evaluate mass/lesion. Will defer to neurosurgery on how to proceed. The patient and are aware of risks associated with MRI contrast administration. (3) DM (diabetes mellitus) Plan: Blood sugar is acceptable, recommend glucose 140-180 mg/dL resume insulin per home medications (4) HTN (hypertension) Plan: tight BP control on hydralazine, (5) Anemia Plan: continue epogen with dialysis begin oral iron (6) Metabolic bone disease Plan: continue phoslo intermittently check phosphorus level Plan he has existing outpatient HD arrangements; can be discharged when cleared by other physicians (Sho Laughlin) Plan patient was seen and examined. Repeat CT reveals hemorrhagic stroke. Needs better BP control. Add Carvedilol. (George Childs MD) Problem Qualifiers (1) DM (diabetes mellitus): Sho Laughlin August 07, 2016 10:47 George Childs MD August 07, 2016 14:13
[2016-08-07 12:00] VITALS: BP 158/79; PULSE 113; RESP 17; TEMP 97.2; O2SAT 90
[2016-08-07] MEDS: ONDANSETRON HCL 4 MG/2 ML VIAL IVP PRN (12:00)
[2016-08-07] MEDS ORDERED: IOHEXOL 350 MG/ML 10 ML VIAL (for RAD DIAG) IV ONE (13:23)
--- NOTE | 2016-08-07 14:03 | RADRPT ---
EXAM DATE/TIME: 08/07/2016 13:07 [facility] COMPARISON: CT BRAIN W/O CONTRAST, June 11, 2016, 13:13. CT BRAIN W/O CONTRAST, August 03, 2016, 13:15. MRI BRAIN W/O CONTRAST, August 04, 2016, 10:16. INDICATIONS : Abnormal MRI Brain. Evaluate for mass. IV CONTRAST: 96 cc Omnipaque 350 (iohexol) IV RADIATION DOSE: 52.62 CTDIvol (mGy) MEDICAL HISTORY : Cardiovascular disease. Renal failure, dialysis SURGICAL HISTORY : Appendectomy. Bilateral nephrectomies, kidney transplant ENCOUNTER: Initial ACUITY: 1 day PAIN SCALE: 0/10 LOCATION: cranial TECHNIQUE: Multiple contiguous axial images were obtained of the head. Using automated exposure control and adj ustment of the mA and/or kV according to patient size, radiation dose was kept as low as reasonably a chievable to obtain optimal diagnostic quality images. FINDINGS: Hemorrhagic lesion in the right parietal lobe is again noted. A followup unenhanced and enhanced CT d emonstrates decreasing edema, persistent but stable hemorrhage and localized enhancement in the hemor rhagic zone. The MRI indicated that the blood products are acute to subacute in appearance with T1 hyperintensity. This would explain the enhancement which occurs in a subacute infarct with disruption of the blood b rain barrier. Intravenous size is stable. Left cerebral hemisphere, brain stem and cerebellum are stable. CONCLUSION: Evolving changes in the right parietal hemorrhagic lesion are characteristic of a acute to subacute h emorrhagic infarct with decreasing edema but developing enhancement due to breakdown of the blood-bra in barrier. Short term followup is recommended with followup MRI or CT in 3 months. Reji Walton MD on August 07, 2016 at 13:42 Board Certified Radiologist. This report was verified electronically.
[2016-08-07] MEDS: CARVEDILOL 12.5 MG TAB PO SCH ×2 (14:15→21:00)
[2016-08-07] MEDS: EPOETIN ALFA 10,000 UNITS/ML VIAL IV PRN (14:32)
--- NOTE | 2016-08-07 14:51 | HHI.PR ---
Subjective Remarks Follow up diabetes. Glucose continues to fluctuate. Patient seen in dialysis. No complaints at this time. Objective Vitals Vital Signs Date Time Temp Pulse Resp B/P Pulse Ox O2 Delivery O2 Flow Rate FiO2 08/07/16 12:00 97.2 113 17 158/79 90 08/07/16 08:00 96.9 100 18 157/82 94 08/06/16 20:00 83 08/06/16 20:00 98 Room Air 08/06/16 20:00 96.9 83 20 165/88 98 08/06/16 14:49 96.9 88 19 155/96 96 I/O 08/06/16 08/06/16 08/06/16 08/07/16 08/07/16 08/07/16 07:00 15:00 23:00 07:00 15:00 23:00 Intake Total 1000 ml 940 ml 480 ml 240 ml 240 ml Output Total 0 ml 600 ml 500 ml 0 ml Balance 1000 ml 940 ml -120 ml -260 ml 240 ml Intake Oral 1000 ml 940 ml 480 ml 240 ml 240 ml IV Total 0 ml 0 ml 0 ml Output Urine Total 0 ml 600 ml 500 ml 0 ml # Voids 2 # Bowel Movements 1 1 0 0 1 Result Diagram: 08/07/16 0434 08/07/16 0434 Imaging Last Impressions Head CT 08/07/16 1222 Signed Impressions: Service Date/Time: Sunday, August 07, 2016 13:07 - CONCLUSION: Evolving changes in the right parietal hemorrhagic lesion are characteristic of a acute to subacute hemorrhagic infarct with decreasing edema but developing enhancement due to breakdown of the blood-brain barrier. Short term followup is recommended with followup MRI or CT in 3 months. Reji Walton MD Brain MRI 08/04/16 0000 Signed Impressions: Service Date/Time: Thursday, August 04, 2016 10:16 - CONCLUSION: 1. Noncontrast MRI limiting the sensitivity for the detection of masses. 2. Focal masslike area of signal intensity with surrounding edema and low signal on the echoplanar weighted images. There is increased signal on the T1-weighted images consistent with the known hemorrhage. This is of concern for a hemorrhagic mass such as a metastatic lesion or primary tumor. A contrast enhanced exam would be helpful. 3. No additional focal abnormalities. Zion Ford MD Chest X-Ray 08/03/16 1245 Signed Impressions: Service Date/Time: Wednesday, August 03, 2016 13:06 - CONCLUSION: 1. No acute cardiopulmonary findings. Radu Cordova MD Objective Remarks General: No acute distress. Heart: Regular rate and rhythm. No murmur. Lungs: Clear to auscultation bilaterally. No wheezes, rales, or rhonchi. Breathing is nonlabored. Abdomen: Soft, nontender, nondistended. Extremities: No lower extremity edema. Psych: Sleeping, but awakens and answers questions. Procedures 08/03/16 right internal jugular central venous line placement Urinary Catheter: No Date of Insertion: August 03, 2016 Line: Central Venous Catheter Side: Right Location: Internal, Jugular A/P Problem List: (1) Intraparenchymal hemorrhage of brain ICD Code: I61.9 Status: Acute (2) ESRD (end stage renal disease) on dialysis ICD Code: N18.6 Status: Chronic (3) DM (diabetes mellitus) ICD Code: E11.9 Status: Chronic (4) HTN (hypertension) ICD Code: I10 Status: Chronic Assessment and Plan 1. Intraparenchymal hemorrhage of the brain: Appreciate neurosurgery recommendations. Follow imaging. Continue PT/OT/ST. Continue neuro checks, seizure precautions. Per neurosurgery, patient will need MRI with contrast. This will have to be coordinated with dialysis. 2. Hypertension: Continue hydralazine. Clonidine as needed. 3. Diabetes mellitus: Monitor Accu-Cheks and cover with sliding scale insulin. The patient has had fluctuations between hyperglycemia and hypoglycemia. Adjust Levemir. Continue diabetic diet. 4. GERD: Continue PPI. 5. End-stage renal disease: Dialysis per nephrology. 6. Hyperlipidemia: Continue statin. 7. DVT prophylaxis: PRISCA Rosa. Avoid chemical prophylaxis secondary to intraparenchymal brain hemorrhage. Problem Qualifiers (1) DM (diabetes mellitus): Bernabe Cruz MD August 07, 2016 14:50
--- NOTE | 2016-08-07 15:30 | HHI.NSPN ---
(Linh Garner) Note Status Status: Progress Note (Linh Garner) Interval History Interval History This is a 51-year-old male with history of end-stage renal disease on hemodialysis anemia, coronary artery disease status post AK, arterial hypertension, diabetes mellitus, congestive heart failure, GERD, anxiety and depression. He presents to emergency room with his for evaluation of altered mental status. His reports that about a month ago, he received medications for sedation for a right-sided AV fistula. Since then he has been intermittently confused and disoriented. He denies headache, dizziness, fever, chills, neck pain, numbness and focal weakness. 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 He received his dialysis yesterday as scheduled. Today he was apparently worse, more anxious, tearful and complained of butterflies in his stomach. He reports of burning sensation in his epigastric area. CT brain showed a focal area of intraparenchymal hemorrhage with surrounding edema in the watershed distribution between the right parieto- occipital cortex. Denies falls or head trauma. He has been started on aspirin fo a week. Neurosurgery was consulted 08/06: no changes neurologically 08/07: could not undergo contrasted MRI per radiologist today, CT Brain w/wo completed (Linh Garner) Labs, Micro, & Vital Signs Results Date Time Temp Pulse Resp B/P Pulse Ox O2 Delivery O2 Flow Rate FiO2 08/07/16 12:00 97.2 113 17 158/79 90 08/07/16 08:00 96.9 100 18 157/82 94 08/06/16 20:00 83 08/06/16 20:00 98 Room Air 08/06/16 20:00 96.9 83 20 165/88 98 08/07/16 06:59 Intake Total 1660 ml Output Total 1100 ml Balance 560 ml Constitutional Vital Signs Date Time Temp Pulse Resp B/P Pulse Ox O2 Delivery O2 Flow Rate FiO2 08/07/16 12:00 97.2 113 17 158/79 90 08/07/16 08:00 96.9 100 18 157/82 94 08/06/16 20:00 83 08/06/16 20:00 98 Room Air 08/06/16 20:00 96.9 83 20 165/88 98 08/07/16 06:59 Intake Total 1660 ml Output Total 1100 ml Balance 560 ml (Linh Garner) Review of Systems/Exam Exam Mr Garner is alert, awake and oriented to time, place and person. Speech is fluent. GCS 15 Cranial nerve examination demonstrates the pupils to be equal, round, and reactive to light. Extra-ocular movements are intact. Facial motor and sensory function are normal and symmetrical. Gross hearing is intact, bilaterally. Neck is soft and supple. Muscle strength is 5/5 in all muscle groups of both upper extremities including deltoid, biceps, triceps, brachioradialis, wrist extension and slicer machine operator. In the lower extremities, strength is 5/5 in both iliopsoas, quadriceps, hamstrings, plantar flexion, dorsiflexion, and extensor hallicus longus. Sensory examination is intact to light touch in both the upper and lower extremities, symmetrically. Cerebellar examination is intact to [id number] test (Linh Garner) Medications Current Medications Current Medications Medications (Trade) Dose Ordered Sig/Suzan Route PRN Reason Start Time Stop Time Status Last Admin Dose Admin Sodium Chloride (NS Flush) 2 ml UNSCH PRN IV FLUSH FLUSH AFTER USING IV ACCESS 08/03/16 14:00 Sodium Chloride (NS Flush) 2 ml BID IV FLUSH 08/03/16 21:00 08/06/16 20:04 Acetaminophen (Tylenol) 650 mg Q4H PRN PO TEMP > 100.4 08/03/16 14:00 Ondansetron HCl (Zofran Inj) 4 mg Q6H PRN IVP NAUSEA OR VOMITING 08/03/16 14:00 08/07/16 12:00 Bisacodyl (Dulcolax Supp) 10 mg DAILY PRN RECTAL CONSTIPATION 08/03/16 14:00 Acetaminophen (Tylenol) 650 mg Q6H PRN PO PAIN SCALE 1 TO 2 08/03/16 14:00 08/06/16 20:06 Acetaminophen/ Hydrocodone Bitart (Hamilton 5-325 Mg) 1 tab Q4H PRN PO PAIN SCALE 3 TO 5 08/03/16 14:00 08/07/16 09:32 Naloxone HCl (Narcan Inj) 0.4 mg UNSCH PRN IV SEE LABEL COMMENTS 08/03/16 14:00 Acetaminophen/ Hydrocodone Bitart (Hamilton 10-325 Mg) 1 tab Q4H PRN PO PAIN SCALE 6 TO 10 08/03/16 14:00 08/06/16 22:51 Hydralazine HCl (Apresoline Inj) 10 mg Q6H PRN IV SBP> OR = 170, DBP> OR = 100 08/03/16 14:15 Clonidine (Catapres) 0.1 mg Q6H PRN PO SBP> OR = 170, DBP> OR = 100 08/03/16 14:15 08/04/16 11:06 Dextrose (D50w (Vial) Inj) 25 ml UNSCH PRN IV PUSH HYPOGLYCEMIA-SEE COMMENTS 08/03/16 14:15 Glucagon (Glucagon Inj) 1 mg UNSCH PRN OTHER HYPOGLYCEMIA-SEE COMMENTS 08/03/16 14:15 Atorvastatin Calcium (Lipitor) 10 mg HS PO 08/03/16 21:00 08/06/16 20:05 Cetirizine HCl (ZyrTEC) 10 mg DAILY PO 08/04/16 09:00 08/06/16 09:06 Cinacalcet (Sensipar) 30 mg DAILY PO 08/04/16 09:00 08/06/16 09:06 Mirtazapine (Remeron) 45 mg HS PO 08/03/16 21:00 08/06/16 20:05 Paroxetine HCl (Paxil) 20 mg DAILY PO 08/04/16 09:00 08/06/16 09:06 Pantoprazole Sodium (Protonix) 20 mg BID PO 08/03/16 21:00 08/06/16 20:05 Diazepam 2 mg 2 mg Q4HR PRN PO ANXIETY 08/03/16 14:45 08/07/16 08:57 Sodium Chloride (NS 1000 ml Inj) 1,000 ml @ 0 mls/hr Q0M PRN IV For Prime & Rinse Back 08/03/16 16:31 Heparin Sodium (Porcine) 8000 units 8,000 units UNSCH PRN IVF WITH DIALYSIS 08/03/16 16:45 Sodium Chloride 1,000 ml @ 200 mls/hr Q5H PRN IV WITH DIALYSIS 08/03/16 16:31 Sodium Chloride (NS 1000 ml Inj) 1,000 ml @ 0 mls/hr Q0M PRN IV WITH DIALYSIS 08/03/16 16:31 Mannitol (Mannitol Inj) 12.5 gm UNSCH PRN IV WITH DIALYSIS 08/03/16 16:45 Albumin Human (Albumin 25% Inj) 25 gm UNSCH PRN IV WITH DIALYSIS 08/03/16 16:45 08/07/16 14:47 Sodium Chloride (NS Flush) 5 ml UNSCH PRN IV FLUSH WITH DIALYSIS 08/03/16 16:45 Heparin Sodium (Porcine) (Heparin Inj) UNSCH PRN .XX WITH DIALYSIS 08/03/16 16:45 Gentamicin Sulfate (Gentamicin (Dialysis) Inj) 20 mg UNSCH PRN IV WITH DIALYSIS 08/03/16 16:45 Ondansetron HCl (Zofran Inj) 4 mg UNSCH PRN IV WITH DIALYSIS 08/03/16 16:45 Acetaminophen (Tylenol) 650 mg UNSCH PRN PO for headach, pain, temp > 101F 08/03/16 16:45 Diphenhydramine HCl (Benadryl) 25 mg UNSCH PRN PO for hives/itching/anaphylaxis 08/03/16 16:45 Nitroglycerin (Nitrostat Sl) 0.4 mg UNSCH PRN SL CHEST PAIN 08/03/16 16:45 Clonidine (Catapres) 0.1 mg UNSCH PRN PO for BP > 180/100 X 2 readings 08/03/16 16:45 Epoetin Jesus (Epogen Inj) 10,000 units UNSCH PRN IV WITH DIALYSIS 08/03/16 16:45 08/07/16 14:32 Gelatin (Gelfoam 12 Mm/7 Mm Top) 1 foam UNSCH PRN TOP SEE LABEL COMMENTS 08/03/16 16:45 Calcium Acetate (Phoslo) 2,001 mg TID PO 08/03/16 18:00 08/07/16 12:27 Hydralazine HCl (Apresoline) 50 mg Q8HR PO 08/03/16 17:30 08/07/16 05:47 Insulin Detemir (Levemir Inj) 12 units HS SQ 08/04/16 21:00 08/06/16 20:03 Ferrous Sulfate (Ferrous Sulfate) 325 mg DAILY PO 08/06/16 12:00 08/06/16 13:15 Carvedilol (Coreg) 12.5 mg Q12HR PO 08/07/16 14:15 (Linh Garner) Medical Decision Making MDM Remarks 51 y/o male with right parietal hemorrhagic mass, unclear etiology at this time , unable to obtain MRI Brain w/ contrast per radiologist CT Brain w/wo contrast reports evolving hemorrhagic stroke (Linh Garner) Plan Plan Remarks cont current care, cont medical mgt ok to discharge home from neurosurgical standpoint (Linh Garner) Attending Statement Unable to obtain MRI. Continue neuro checks in a serial fashion. CHF. Continue home meds Hypertension. Monitor and treat as needed with antihypertrensives CAD. Hold ASA Respiratory. pulmonary toilette, nasotracheal suction, and breathing treatments with nebulizers. PT and OT eval Nutrition. Oral diet Bursitis and edema in her right knee. Consult orthopedics, she is well known by dr Ari Teresa Renal. Continue dialysis Endocrine. Monitor serial Acu checks and SSI for tight control ID monitor for signs of infection GERD. Protonix for stress ulcer prophylaxis Jose Cruz hose and SCD's for DVT prophylaxis The exam, history, and the medical decision-making described in the above note were completed with the assistance of the mid-level provider. I reviewed and agree with the findings presented. I attest that I had a [id number] encounter with the patient on the same day, and personally performed and documented my assessment and findings in the medical record. (Ej Meek MD) Linh Garner August 07, 2016 15:30 Ej Meek MD August 07, 2016 21:46
[2016-08-07 17:40] VITALS: O2SAT 90
[2016-08-07 20:00] VITALS: BP 101/58; PULSE 106; RESP 20; TEMP 97.3; O2SAT 95
[2016-08-07] MEDS: INSULIN DETEMIR 100 UNITS/ML VIAL SQ SCH (21:00)
[2016-08-07] MEDS: MIRTAZAPINE 15 MG TAB PO SCH (21:56)
[2016-08-07] MEDS: ATORVASTATIN 10 MG TAB PO SCH (21:57)
[2016-08-08] VITALS (7 sets, daily range): BP systolic 122–164; BP diastolic 73–90; PULSE 88–106; RESP 15–20; TEMP 96–97.9; O2SAT 93–99
[2016-08-08] MEDS: hydrALAZINE HCL 50 MG TAB PO SCH (05:26)
[2016-08-08] MEDS: DIAZEPAM 2 MG TAB PO PRN ×2 (05:26→11:14)
[2016-08-08] MEDS: MEDIUM DOSE INSULIN NOVOLOG SUPPLEMENTAL SCALE SQ SCH ×3 (05:27→16:00)
[2016-08-08] MEDS: CETIRIZINE HCL 10 MG TAB PO SCH (08:20)
[2016-08-08] MEDS: CINACALCET HYDROCHLORIDE 30 MG TAB PO SCH (08:20)
[2016-08-08] MEDS: FERROUS SULFATE 325 MG (65 MG ELEMENTAL IRON) TAB PO SCH (08:20)
[2016-08-08] MEDS: PANTOPRAZOLE SOD 20 MG DELAYED RELEASE TAB PO SCH (08:20)
[2016-08-08] MEDS: CALCIUM ACETATE 667 MG CAP PO SCH ×2 (08:21→11:14)
[2016-08-08] MEDS: CARVEDILOL 12.5 MG TAB PO SCH (08:21)
[2016-08-08] MEDS: PARoxetine HCL 20 MG TAB PO SCH (08:21)
[2016-08-08] MEDS: SODIUM CHLORIDE 0.9% FLUSH 10 ML FLUSH IV FLUSH SCH (08:22)
--- NOTE | 2016-08-08 10:22 | HHI.NPPN ---
Subjective Complaints: Obesity General Problems: Hypertension Renal Failure: Chronic, End Stage Renal Disease Interval History CT did show hemorrhagic infarct. No neurological deficit. He had dialysis yesterday. (Sho Laughlin) Review of Systems General General Remarks no current complaints (Sho Laughlin) Objective Data Data 08/07/16 08/08/16 19:00 07:00 Intake Total 240 ml 360 ml Output Total 3000 ml Balance -2760 ml 360 ml Intake Oral 240 ml 360 ml IV Total 0 ml Output Urine Total 0 ml Hemodialysis 3000 ml # Voids 0 # Bowel Movements 1 2 Vital Signs Date Time Temp Pulse Resp B/P Pulse Ox O2 Delivery O2 Flow Rate FiO2 08/08/16 08:00 97.9 106 15 158/80 95 08/08/16 04:00 97.5 90 20 148/86 96 08/08/16 00:00 96.8 90 20 122/73 95 08/07/16 20:00 97.3 106 20 101/58 95 08/07/16 17:40 90 21 08/07/16 12:00 97.2 113 17 158/79 90 (Sho Laughlin) -: 08/07/16 0434 08/07/16 0434 Imaging Last [address] 08/07/16 1222 Signed Impressions: Service Date/Time: Sunday, August 07, 2016 13:07 - CONCLUSION: Evolving changes in the right parietal hemorrhagic lesion are characteristic of a acute to subacute hemorrhagic infarct with decreasing edema but developing enhancement due to breakdown of the blood-brain barrier. Short term followup is recommended with followup MRI or CT in 3 months. Reji Walton MD (Sho Laughlin) Physical Exam General Appearance: Well Developed, Well Nourished, No Acute Distress, Comfortable ( Sho Laughlin) Eyes Eye Remarks right sclera with chronic erythema (Sho Laughlin) Throat Throat Exam: Oral Mucosa [place] & Moist (Sho Laughlin) Pulmonary Resp Exam: Clear Bilaterally, Breath Sounds Equal (Sho Laughlin) Cardiology CV Exam: Regular, Normal Sinus Rhythm, Good Perfusion (Sho Laughlin) Gastrointestinal/Abdomen GI Exam: Soft, Non-Tender, Bowel Sounds Present (Sho Laughlin) Musculoskeletal MS Exam: Joints Intact, Good Strength (Sho Laughlin) Integumentary Skin Exam: Warm, Dry (Sho Laughlin) Extremeties Extremities Exam: No Edema, Pedal Pulses Palpable (Sho Laughlin) Neurologic Neuro Exam: Alert, Awake, Oriented, Speech Clear, Moving All Extremities ( Sho Laughlin) Psychiatric Psych Exam: Appropriate Responses (Sho Laughlin) Assessment/Plan Discussed Condition With: Patient, Spouse Problem List: (1) ESRD (end stage renal disease) on dialysis Plan: He had 3L UF yesterday with dialysis hyperkalemic yesterday, repeat K in process can resume outpatient HD arrangements if discharged he has graft right arm for HD stable from renal perspective he is anuric at baseline continue Sensipar for secondary hyperparathyroidism (2) Altered mental status Plan: CT showing hemorrhagic mass or stroke workup in progress, he has no deficit ASA stopped discussed HTN management with the patient and (3) DM (diabetes mellitus) Plan: Blood sugar is acceptable, recommend glucose 140-180 mg/dL resume insulin per home medications (4) HTN (hypertension) Plan: tight BP control we changed his regimen to coreg 25 BID, added losartan 50 daily Rx given; we have stopped the hydralazine asked to keep updated list of medications for titration in outpatient setting (5) Anemia Plan: continue epogen with dialysis (6) Metabolic bone disease Plan: continue phoslo intermittently check phosphorus level (Sho Laughlin) Plan patient was seen and examined. Better control of hypertension is needed. Coreg started. Also started Losartan. It may be better to use long acting antihypertensive. (George Childs MD) Problem Qualifiers (1) DM (diabetes mellitus): Sho Laughlin August 08, 2016 10:22 George Childs MD August 09, 2016 11:10
[2016-08-08] MEDS ORDERED: FERR325T PO (10:37)
[2016-08-08] MEDS ORDERED: CALC667C PO (10:37)
[2016-08-08] MEDS ORDERED: CARV12.5 PO (10:37)
[2016-08-08] MEDS ORDERED: DIAZ2TAB PO (11:13)
[2016-08-08 11:56] LABS: BICARBONATE 28.8 MEQ/L (21.0-32.0); POTASSIUM 5.3 MEQ/L (3.5-5.1)
[2016-08-08] MEDS ORDERED: INSULIN HUMAN REGULAR 1,000 UNITS/10 ML VIAL SQ ONE (16:00)
--- NOTE | 2016-08-08 16:20 | HHI.PR ---
Subjective Remarks 0800 Follow up diabetes. Patient seen and examined today by myself and Dr. Jackson. Patient up and ready to go for discharge. No new acute complaints. Denies any shortness of breath, chills, fever, chest pain, or headache. Has been tolerating PO intake, denies nausea or vomiting. 1100 Received call from RN about elevated glucose of 437. Discharge held at this time until blood sugar resolved. Follow sliding scale protocol. Recheck at 1500 450. Patient given 12 units Novolin R insulin now. Recheck 370. Followed insulin sliding scale and will continue with discharge. Objective Vitals Vital Signs Date Time Temp Pulse Resp B/P Pulse Ox O2 Delivery O2 Flow Rate FiO2 08/08/16 16:00 97.8 88 17 135/78 93 08/08/16 12:00 96.0 97 18 164/90 98 08/08/16 11:46 99 08/08/16 09:05 Room Air 08/08/16 08:00 97.9 106 15 158/80 95 08/08/16 04:00 97.5 90 20 148/86 96 08/08/16 00:00 96.8 90 20 122/73 95 08/07/16 20:00 97.3 106 20 101/58 95 08/07/16 17:40 90 21 I/O 08/07/16 08/07/16 08/07/16 08/08/16 08/08/16 08/08/16 07:00 15:00 23:00 07:00 15:00 23:00 Intake Total 240 ml 240 ml 240 ml 120 ml 0 ml Output Total 500 ml 0 ml 3000 ml Balance -260 ml 240 ml -2760 ml 120 ml 0 ml Intake Oral 240 ml 240 ml 240 ml 120 ml IV Total 0 ml 0 ml 0 ml Output Urine Total 500 ml 0 ml Hemodialysis 3000 ml # Voids 0 0 # Bowel Movements 0 1 1 1 Result Diagram: 08/07/16 0434 08/08/16 0930 Imaging Last Impressions Head CT 08/07/16 1222 Signed Impressions: Service Date/Time: Sunday, August 07, 2016 13:07 - CONCLUSION: Evolving changes in the right parietal hemorrhagic lesion are characteristic of a acute to subacute hemorrhagic infarct with decreasing edema but developing enhancement due to breakdown of the blood-brain barrier. Short term followup is recommended with followup MRI or CT in 3 months. Reji Walton MD Brain MRI 08/04/16 0000 Signed Impressions: Service Date/Time: Thursday, August 04, 2016 10:16 - CONCLUSION: 1. Noncontrast MRI limiting the sensitivity for the detection of masses. 2. Focal masslike area of signal intensity with surrounding edema and low signal on the echoplanar weighted images. There is increased signal on the T1-weighted images consistent with the known hemorrhage. This is of concern for a hemorrhagic mass such as a metastatic lesion or primary tumor. A contrast enhanced exam would be helpful. 3. No additional focal abnormalities. Zion Ford MD Chest X-Ray 08/03/16 1245 Signed Impressions: Service Date/Time: Wednesday, August 03, 2016 13:06 - CONCLUSION: 1. No acute cardiopulmonary findings. Radu Cordova MD Objective Remarks GENERAL: Well-nourished, well-developed obese patient in NAD. SKIN: Warm and dry. No rash. HEAD: Normocephalic. Atraumatic. Pupils equal and round. No scleral icterus. No injection or drainage. No nasal bleeding or discharge. Mucous membranes pink and moist. NECK: Supple. Trachea midline. CARDIOVASCULAR: Regular rate and rhythm. S1, S2 noted. No murmur appreciated. RESPIRATORY: No accessory muscle use. Clear to auscultation. Breath sounds equal bilaterally. GASTROINTESTINAL: Abdomen soft, non-tender, nondistended. Normoactive bowel sounds x4. MUSCULOSKELETAL: No obvious deformities. Extremities without clubbing, cyanosis , or edema. NEUROLOGICAL: Awake and alert. No obvious cranial nerve deficits. Motor grossly within normal limits. 5/5 muscle strength in bilateral upper and lower extremities. Normal speech. PSYCHIATRIC: Appropriate mood and affect; insight and judgment normal. Procedures 08/03/16 right internal jugular central venous line placement Urinary Catheter: No Vascular Central Line Catheter: No Assessment to: Remove Date of Insertion: August 03, 2016 A/P Problem List: (1) Intraparenchymal hemorrhage of brain ICD Code: I61.9 Status: Acute (2) ESRD (end stage renal disease) on dialysis ICD Code: N18.6 Status: Chronic (3) DM (diabetes mellitus) ICD Code: E11.9 Status: Chronic (4) HTN (hypertension) ICD Code: I10 Status: Chronic Assessment and Plan Will discharge today. Intraparenchymal hemorrhage of the brain: Appreciate neurosurgery recommendations. Continue PT/OT/ST. Continue neuro checks, seizure precautions. Hypertension: Controlled. Continue home medications on discharge. Diabetes mellitus: Continue Accu-Cheks and cover with sliding scale insulin at home. The patient has had fluctuations between hyperglycemia and hypoglycemia. Continue levemir. Continue diabetic diet. GERD: Continue PPI. End-stage renal disease: Dialysis per nephrology. Hyperlipidemia: Continue statin at home Discharge Planning Blood sugar controlled at this time. Will continue with discharge. Problem Qualifiers (1) DM (diabetes mellitus): Mary Graham August 08, 2016 16:20 Mary Graham August 08, 2016 16:20
--- NOTE | 2016-08-08 17:29 | HHI.DS ---
Discharge Summary Admission Date August 03, 2016 at 13:59 Discharge Date: August 08, 2016 Admitting Diagnosis Hemorrhagic infarct versus hemorrhagic mass (1) Intraparenchymal hemorrhage of brain ICD Code: I61.9 Diagnosis: Principal (2) ESRD (end stage renal disease) on dialysis ICD Code: N18.6 Diagnosis: Secondary (3) DM (diabetes mellitus) ICD Code: E11.9 Diagnosis: Secondary (4) HTN (hypertension) ICD Code: I10 Diagnosis: Secondary Procedures 08/03/16 right internal jugular central venous line placement Brief History - From Admission This is a 51-year-old male with history of end-stage renal disease on hemodialysis T//, anemia, coronary artery disease status post MA, hypertension, diabetes mellitus congestive heart failure, GERD, anxiety and depression. He presents to emergency room with his for evaluation of altered mental status. Patient's reports that about a month ago, patient had medications for sedation as he needed stents in his right-sided AV fistula. Since then he became intermittently confused and disoriented. 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 Patient denies any new medications. He denies headache, dizziness, fever, chills, neck pain, numbness and focal weakness. 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 Patient did receive his dialysis yesterday as scheduled. Patient does not make any urine at this time. Today he was worse according to his being more anxious, tearful and complained of butterflies in his stomach. He reports of burning sensation in his epigastric area. ED workup shows abnormal head CT with focal area of intraparenchymal hemorrhage with surrounding edema in the watershed distribution between the right parieto-occipital cortex. Denies falls or head trauma. He has been started on aspirin about a week ago. Neurosurgery manager of information recommended admission to [facility] under the medical service and will see patient in consult CBC/BMP: 08/07/16 7244 08/08/16 0930 Significant Findings Laboratory Tests Test 08/05/16 08/05/16 08/06/169/17 20:05 22:47 03:24 04:34 Random Glucose 422 MG/DL 114 MG/DL 253 MG/DL 122 MG/DL (74-106) (74-106) (74-106) (74-106) Blood Urea Nitrogen 53 MG/DL (7-18) 66 MG/DL (7-18) Creatinine 12.00 MG/DL 15.07 MG/DL (0.60-1.30) (0.60-1.30) Estimat Glomerular Filtration 5 ML/MIN (>89) 4 ML/MIN (>89) Rate Red Blood Count 2.94 MIL/MM3 (4.50-5.90) Hemoglobin 9.3 GM/DL (13.0-17.0) Hematocrit 28.3 % (39.0-51.0) Monocytes (%) (Auto) 10.0 % (0.0-8.0) Eosinophils (%) (Auto) 8.6 % (0.0-4.0) Eosinophils # (Auto) 0.5 TH/MM3 (0-0.4) Potassium Level 5.8 MEQ/L (3.5-5.1) Test 08/08/16 09:30 Sodium Level 133 MEQ/L (136-145) Potassium Level 5.3 MEQ/L (3.5-5.1) Chloride Level 94 MEQ/L (98-107) Blood Urea Nitrogen 50 MG/DL (7-18) Creatinine 12.49 MG/DL (0.60-1.30) Estimat Glomerular Filtration 5 ML/MIN (>89) Rate Random Glucose 356 MG/DL (74-106) Calcium Level 10.2 MG/DL (8.5-10.1) Imaging Last Impressions Head CT 08/07/16 1222 Signed Impressions: Service Date/Time: Sunday, August 07, 2016 13:07 - CONCLUSION: Evolving changes in the right parietal hemorrhagic lesion are characteristic of a acute to subacute hemorrhagic infarct with decreasing edema but developing enhancement due to breakdown of the blood-brain barrier. Short term followup is recommended with followup MRI or CT in 3 months. Reji Walton MD Brain MRI 08/04/16 0000 Signed Impressions: Service Date/Time: Thursday, August 04, 2016 10:16 - CONCLUSION: 1. Noncontrast MRI limiting the sensitivity for the detection of masses. 2. Focal masslike area of signal intensity with surrounding edema and low signal on the echoplanar weighted images. There is increased signal on the T1-weighted images consistent with the known hemorrhage. This is of concern for a hemorrhagic mass such as a metastatic lesion or primary tumor. A contrast enhanced exam would be helpful. 3. No additional focal abnormalities. Zion Ford MD Chest X-Ray 08/03/16 1245 Signed Impressions: Service Date/Time: Wednesday, August 03, 2016 13:06 - CONCLUSION: 1. No acute cardiopulmonary findings. Radu Cordova MD PE at Discharge GENERAL: Well-nourished, well-developed obese patient in NAD. SKIN: Warm and dry. No rash. HEAD: Normocephalic. Atraumatic. Pupils equal and round. No scleral icterus. No injection or drainage. No nasal bleeding or discharge. Mucous membranes pink and moist. NECK: Supple. Trachea midline. CARDIOVASCULAR: Regular rate and rhythm. S1, S2 noted. No murmur appreciated. RESPIRATORY: No accessory muscle use. Clear to auscultation. Breath sounds equal bilaterally. GASTROINTESTINAL: Abdomen soft, non-tender, nondistended. Normoactive bowel sounds x4. MUSCULOSKELETAL: No obvious deformities. Extremities without clubbing, cyanosis , or edema. NEUROLOGICAL: Awake and alert. No obvious cranial nerve deficits. Motor grossly within normal limits. 5/5 muscle strength in bilateral upper and lower extremities. Normal speech. PSYCHIATRIC: Appropriate mood and affect; insight and judgment normal. Hospital Course This is a 51-year-old male with history of end-stage renal disease on hemodialysis T//, anemia, coronary artery disease status post MA, hypertension, diabetes mellitus congestive heart failure, GERD, anxiety and depression who presented to emergency department for evaluation of altered mental status described as confusion, and disorientation. ED workup shows abnormal head CT with focal area of intraparenchymal hemorrhage with surrounding edema in the watershed distribution between the right parieto- occipital cortex. Denies falls or head trauma. He has been started on aspirin about a week ago. Neurosurgery was consulted. Patient was managed conservatively. Repeat CT scan was unremarkable. Patient's hypertension was controlled, Coreg was added and increase as needed. Patient's mental status improved and remained stable. Patient ambulated with physical therapy. Patient to be going home with home health care. Pt Condition on Discharge: Good Discharge Disposition: Discharge Home Discharge Time: > 30 minutes Discharge Instructions DIET: Follow Instructions for: Heart Healthy Diet, Diabetic Diet, Renal Failure Diet Activities you can perform: Regular-No Restrictions Follow up Referrals: PCP Follow-up - 1 Week New Medications: Calcium Acetate (Phosphate Bin (Calcium Acetate) 667 Mg Cap 2001 MG PO TID supplement #90 CAP Carvedilol (Coreg) 12.5 Mg Tab 25 MG PO Q12HR HTN #60 TAB Ferrous Sulfate (Ferrous Sulfate) 325 Mg Tab 325 MG PO DAILY anemia #30 TAB Continued Medications: Atorvastatin (Atorvastatin) 20 Mg Tab 0.5 TAB PO HS Cholesterol Management #30 Ref 0 TAB Cetirizine (Zyrtec Allergy) 10 Mg Tab 10 MG PO DAILY Allergies Ref 0 TAB Cinacalcet (Sensipar) 30 Mg Tab 30 MG PO DAILY #30 Ref 0 TAB Diazepam (Diazepam) 2 Mg Tab 2 MG PO DIRECTED PRN ANXIETY #14 Ref 0 TAB (This prescription has been renewed) Hydrocodone-Acetaminophen (Lortab) 10-325 Mg Tab 1 TAB PO Q6H PRN PAIN Ref 0 TAB Insulin Aspart Inj (Novolog Inj) 1,000 Unit/10 Ml Vial 0 SQ DIRECTED Sliding Scale as directed. Blood Sugar Management #10 Ref 0 ML Insulin Glargine Inj (Lantus Inj) 1,000 Unit/10 Ml Vial 16 UNITS SQ HS Blood Sugar Management Ref 0 VIAL Mirtazapine (Mirtazapine) 45 Mg Tab 45 MG PO HS Depression Control #30 Ref 0 TAB Omeprazole (Omeprazole) 20 Mg Tab 20 MG PO BID #30 Ref 0 TAB Paroxetine (Paroxetine) 40 Mg Tab 0.5 TAB PO DAILY #30 Ref 0 TAB Trung Jackson MD August 08, 2016 17:29
[2016-08-08] MEDS ORDERED: CARVEDILOL 12.5 MG TAB PO SCH (21:00)
== END 2016-08-08 17:38 | disposition home or self-care (01) | DRG 64 ==
LOC: PHED 11:35 → PHEDA 13:59 → N03B 18:25 → N07A 08-06 13:49
PROVIDERS: ADMIT Hospitalist; ATTEND Hospitalist
PROC: 05HM33Z Insertion of Infusion Device into Right Internal Jugular Vein, Percutaneous Approach (ICD-10-PCS; principal; 2016-08-03)
PROC: 5A1D00Z (ICD-10-PCS; 2016-08-07)
DX: I61.9 Nontraumatic intracerebral hemorrhage, unspecified (principal); N18.6 End stage renal disease; E88.89 Other specified metabolic disorders; N25.81 Secondary hyperparathyroidism of renal origin; I12.0 Hypertensive chronic kidney disease with stage 5 chronic kidney disease or end stage renal disease; Z94.0 Kidney transplant status; I50.9 Heart failure, unspecified; E11.65 Type 2 diabetes mellitus with hyperglycemia; D64.9 Anemia, unspecified; Z99.2 Dependence on renal dialysis; I25.10 Atherosclerotic heart disease of native coronary artery without angina pectoris; I25.2 Old myocardial infarction; F32.9 Major depressive disorder, single episode, unspecified; F41.9 Anxiety disorder, unspecified; K21.9 Gastro-esophageal reflux disease without esophagitis; Z90.5 Acquired absence of kidney; Z79.82 Long term (current) use of aspirin; Z79.4 Long term (current) use of insulin; E66.9 Obesity, unspecified; Z68.34 Body mass index [BMI] 34.0-34.9, adult; E78.5 Hyperlipidemia, unspecified; F17.210 Nicotine dependence, cigarettes, uncomplicated; E87.5 Hyperkalemia; H53.8 Other visual disturbances
CPT/HCPCS: 70450; 70470; 70551; 71010; 76937; 80048; 80053; 80069; 82550; 82552; 82947; 82948; 83540; 83550; 83690; 83735; 83880; 84100; 84484; 85025; 85610; 85730; 87641; 90935; 93005; 95819; 96374; 96375; J1815; J2060; J2405; P9047; Q4081; Q9967

== ENCOUNTER 2016-09-14 11:55 | Emergency (ER) | payer OTHER ==
[~2016-09-14] VITALS: Ht 182.9 cm; Wt 115.5 kg
[~2016-09-14 11:55] MED LIST changes: +ATOR20TA15 PO; +CALC667C PO; +CARV12.5 PO; -CETI10 PO; +DIAZ2TAB PO; +FERR325T PO; +HYDR-3535 PO; +LANTUS2P SQ; -METO50TA PO; -MIRT30TA PO; +MIRT45TA PO; +NOVOLOGP2 SQ; +OMEP20TA PO; -OMEP20TA39 PO; +PARO40TA2 PO; -PAXI20TA26 PO; -PERC7.5T13 PO; -PYRIDOXINE PO; +ZYRT10TA PO
[2016-09-14 12:05] VITALS: BP 116/70; PULSE 74; RESP 16; TEMP 97.8; O2SAT 94
[2016-09-14] MEDS ORDERED: MAGN400T24 PO (12:30)
[2016-09-14] MEDS ORDERED: MOBI15TA PO (12:30)
[2016-09-14] MEDS ORDERED: LANTUS2P SQ (12:30)
[2016-09-14] MEDS ORDERED: FOSR1000 CHEW (12:30)
[2016-09-14] MEDS ORDERED: CETI10CH CHEW (12:30)
[2016-09-14 12:43] VITALS: O2SAT 98
--- NOTE | 2016-09-14 12:59 | RADHPO ---
EXAM DATE/TIME: 09/14/2016 12:42 [facility] COMPARISON: CHEST SINGLE AP, August 03, 2016, 13:06. INDICATIONS : Cough MEDICAL HISTORY : None. SURGICAL HISTORY : None. ENCOUNTER: Initial ACUITY: 1 week PAIN SCORE: 0/10 LOCATION: Bilateral chest FINDINGS: Minimal increased interstitial markings are noted consistent with possible minimal congestion or joe l pneumonitis. Clinical correlation is recommended. No focal alveolar consolidation is noted. The hea rt is stable. Degenerative changes are noted within the thoracic spine. CONCLUSION: Minimal increased interstitial markings suggesting possible minimal congestion or viral pneumonitis. Clinical correlation is recommended. Neri Russell MD on September 14, 2016 at 12:55 Board Certified Radiologist. This report was verified electronically.
[2016-09-14] MEDS ORDERED: methylPREDNISolone SOD SUCC 125 MG/2 ML VIAL IVP ONE (13:00)
[2016-09-14] MEDS: RESP: ALBUTEROL 2.5 MG/3 ML NEB (SCH) INH ×3 (13:01→13:12)
--- NOTE | 2016-09-14 13:03 | PD ---
HPI Chief Complaint: Dizziness Time Seen by Provider: 12:17 Travel History International Travel<30 days: No Contact w/Intl Traveler<30days: No Traveled to known affect area: No History of Present Illness HPI SENT FROM [place], OVER PAST 3 DAYS HAS HAD NONPROD COUGH WHICH HE GOES INTO SUCH FITS THAT HE GETS LIGHTHEADED, HOWEVER, PT HAD A H/O HEMORRHAGIC CVA AND THUS [place] WANTED PATIENT EVALUATED FURTHER....PATIENT GAVE H/O SMOKING 1/2 PPD BUT NOW HE HAS QUIT OVER LAST 1 WEEK PFSH Past Medical History Anemia: Yes (WITH CHRONIC KIDNEY DISEASE) Arthritis: No Asthma: No Autoimmune Disease: No Anxiety: Yes Depression: Yes Heart Rhythm Problems: No Cancer: No Cardiac Catheterization: Yes Cardiovascular Problems: Yes (htn on meds. [place] x 1) High Cholesterol: No Chest Pain: No Congestive Heart Failure: Yes COPD: No Cerebrovascular Accident: Yes (cva 08/03/16 [facility]) Coronary Artery Disease: Yes Diabetes: Yes (type 1) Patient Takes Glucophage: No Dialysis: Yes () Diminished Hearing: No Endocrine: No Gastrointestinal Disorders: Yes (REFLUX) GERD: Yes Genitourinary: Yes Hepatitis: No Hiatal Hernia: No Hypertension: Yes Immune Disorder: No Implanted Vascular Access Dvce: Yes (FISTULA RUE) Kidney Stones: No Musculoskeletal: No Neurologic: No Psychiatric: No Reproductive: No Respiratory: No Immunizations Current: Yes Myocardial Infarction: Yes Renal Failure: Yes Sickle Cell Disease: No Sleep Apnea: Yes (Bipap at night) Thyroid Disease: No Ulcer: No Tetanus Vaccination: < 5 Years Influenza Vaccination: Yes Past Surgical History Abdominal Surgery: Yes (APPEND., ) AICD: No Appendectomy: Yes Arteriovenous Shunt: Yes (old graft) Body Medical Devices: GRAFT BOTH ARMS Cardiac Surgery: No Ear Surgery: No Endocrine Surgery: Yes (av shunt right current, former av shunt site left arm) Eye Surgery: Yes (RIGHT RETINA REPAIR) Genitourinary Surgery: Yes (BILATERAL NEPHRECTOMY, LEFT FRONT KIDNEY TRANSPLANT ) Gynecologic Surgery: No Insulin Pump: No Joint Replacement: No Neurologic Surgery: No Oral Surgery: Yes (TONSILS) Pacemaker: No Thoracic Surgery: No Tonsillectomy: Yes Other Surgery: Yes (GRAFT FOR DIALYSIS, AV FISTULA RIGHT UPPER ARM) Social History Alcohol Use: No Tobacco Use: Yes (2 CIG DAILY) Substance Use: No Allergies-Medications (Allergen,Severity, Reaction): Coded Allergies: Darvocet-N 100 (Verified Allergy, Severe, Itching, 09/14/16) Demerol (Verified Allergy, Severe, Itching, 09/14/16) Morphine (Verified Allergy, Severe, Itching, 09/14/16) Lisinopril (Verified Adverse Reaction, Severe, Cough, 09/14/16) Reported Meds & Prescriptions Reported Meds & Active Scripts Active Coreg (Carvedilol) 12.5 Mg Tab 25 Mg PO Q12HR Calcium Acetate (Calcium Acetate (Phosphate Bin) 667 Mg Cap 2,001 Mg PO TID Reported Mobic (Meloxicam) 15 Mg Tab 15 Mg PO DAILY Magnesium (Magnesium Oxide) 400 Mg Tablet 2 Tab PO BID Fosrenol (Lanthanum Carbonate) 1,000 Mg Tab 1,000 Mg CHEW TIDPC Lantus Inj (Insulin Glargine) 100 Unit/Ml Inj 22 Units SQ DAILY Cetirizine (Cetirizine HCl) 10 Mg Chew 10 Mg CHEW DAILY Novolog Inj (Insulin Aspart) 1,000 Unit/10 Ml Vial 0 SQ DIRECTED Sliding Scale as directed. Mirtazapine 45 Mg Tab 45 Mg PO HS Sensipar (Cinacalcet) 30 Mg Tab 30 Mg PO DAILY Atorvastatin (Atorvastatin Calcium) 20 Mg Tab 0.5 Tab PO HS Review of Systems Except as stated in HPI: all other systems reviewed are Neg Respiratory: Positive: Cough, Wheezing Physical Exam Narrative GENERAL: SKIN: Warm and dry. HEAD: Atraumatic. Normocephalic. EYES: Pupils equal and round. No scleral icterus. No injection or drainage. ENT: No nasal bleeding or discharge. Mucous membranes pink and moist. NECK: Trachea midline. No JVD. CARDIOVASCULAR: Regular rate and rhythm. LEFT AVM SHUNT NOTED WITH PALPABLE THRILL RESPIRATORY: No accessory muscle use. GOOD TV, BUT DIFFUSE WHEEZING GASTROINTESTINAL: Abdomen soft, non-tender, nondistended. Hepatic and splenic margins not palpable. MUSCULOSKELETAL: Extremities without clubbing, cyanosis, or edema. No obvious deformities. NEUROLOGICAL: Awake and alert. No obvious cranial nerve deficits. Motor grossly within normal limits. Five out of 5 muscle strength in the arms and legs. Normal speech. PSYCHIATRIC: Appropriate mood and affect; insight and judgment normal. Data Data Last Documented VS Vital Signs Date Time Temp Pulse Resp B/P Pulse Ox O2 Delivery O2 Flow Rate FiO2 6/16/17 12:43 98 Room Air 09/14/16 12:19 83 09/14/16 12:05 97.8 16 116/70 Orders Complete Blood Count With Diff (09/14/16 12:36) Comprehensive Metabolic Panel (09/14/16 12:36) Ckmb (Isoenzyme) Profile (09/14/16 12:36) Troponin I (09/14/16 12:36) B-Type Natriuretic Peptide (09/14/16 12:36) Prothrombin Time / Inr (Pt) (09/14/16 12:36) Act Partial Throm Time (Ptt) (09/14/16 12:36) Influenzae A/B Antigen (09/14/16 12:36) Chest, Single Ap (09/14/16 12:36) Ct Brain W/O Iv Contrast(Rout) (09/14/16 12:36) Ecg Monitoring (09/14/16 12:36) Oximetry (09/14/16 12:36) Methylprednisolone So Succ Inj (Solumedr (09/14/16 13:00) Albuterol Neb (Albuterol Neb) (09/14/16 13:00) Vascular Access Team Consult/P PRN (09/14/16 12:53) Vascular Poc Ultrasound (09/14/16 ) Labs Laboratory Tests Test 09/14/16 13:40 White Blood Count 4.8 TH/MM3 Red Blood Count 3.31 MIL/MM3 Hemoglobin 10.2 GM/DL Hematocrit 32.2 % Mean Corpuscular Volume 97.0 FL Mean Corpuscular Hemoglobin 30.9 PG Mean Corpuscular Hemoglobin 31.8 % Concent Red Cell Distribution Width 15.0 % Platelet Count 166 TH/MM3 Mean Platelet Volume 7.2 FL Neutrophils (%) (Auto) 36.1 % Lymphocytes (%) (Auto) 26.8 % Monocytes (%) (Auto) 17.2 % Eosinophils (%) (Auto) 19.6 % Basophils (%) (Auto) 0.3 % Neutrophils # (Auto) 1.8 TH/MM3 Lymphocytes # (Auto) 1.3 TH/MM3 Monocytes # (Auto) 0.8 TH/MM3 Eosinophils # (Auto) 0.9 TH/MM3 Basophils # (Auto) 0.0 TH/MM3 CBC Comment DIFF FINAL Differential Comment Sodium Level 143 MEQ/L Potassium Level 4.6 MEQ/L Chloride Level 105 MEQ/L Carbon Dioxide Level 27.0 MEQ/L Anion Gap 11 MEQ/L Blood Urea Nitrogen 46 MG/DL Random Glucose 182 MG/DL Calcium Level 8.8 MG/DL Albumin 3.6 GM/DL [facility] Medical Decision Making Medical Screen Exam Complete: Yes Emergency Medical Condition: Yes Medical Record Reviewed: Yes Differential Diagnosis PULM EDEMA V PNA V BRONCHOSPASM V ICH VS POSTTUSSIVE VAGAL Narrative Course PER CXR NO PNA, MINOR PULM EDEMA (PATIENT IS DIALYSIS AND WILL HAVE IT TOMORROW) , CT HEAD SHOWED A HEALING/IMPROVING ICH THAT IS KNOWN TO PATIENT, WHO CONTINUES TO BE OFF ASPIRIN RECC.....POTASSIUM WNL, EXPECTED CR ELEVATION.... Diagnosis Primary Impression: Bronchospasm Additional Impression: Pleurisy Patient Instructions: Bronchospasm (ED), General Instructions Additional Instructions: PLEASE DO NOT MISS YOUR NEXT DIALYSIS APPOINTMENT TOMORROW. Med/Other Pt SpecificInfo: Prescription(s) given Scripts Methylprednisolone Dosepak (Medrol Dosepak)4 Mg Dspk4 Mg PO DIRECTED #1 DSPK Ref 0 Per Pharmacist direction Prov:Mark Dewitt MD 09/14/16 Hydrocodone-Chlorpheniramine 12 HR Liq (Tussionex Pennkinetic Ext 12 HR Liq)10- 8 Mg/5 Ml Susp5 Ml PO Q12H PRN (COUGH AND/OR COLD SYMPTOMS) #100 ML Ref 0 Prov:Mark Dewitt MD 09/14/16 Azithromycin (Zithromax Z-Veto)250 Mg [id number] Mg PO DIRECTED #1 DSPK Ref 0 500 MG (2 tabs) day 1, then 1 tab days 2-5. Prov:Mark Dewitt MD 09/14/16 Disposition: 01 DISCHARGE HOME Condition: Stable Mark Dewitt MD Sep 14, 2016 13:03
--- NOTE | 2016-09-14 13:38 | RADHPO ---
EXAM DATE/TIME: 09/14/2016 12:55 [facility] COMPARISON: MRI BRAIN W/O CONTRAST, August 04, 2016, 10:16. CT BRAIN W & W/O CONTRAST, August 07, 2016, 13:07. CT BRA IN W/O CONTRAST, August 03, 2016, 13:15. INDICATIONS : Syncope. RADIATION DOSE: 65.89 CTDIvol (mGy) MEDICAL HISTORY : Renal failure, chronic. Cerebrovascular disease. Myocardial infarction.Diabetes. Hypertension. Con gestive heart failure. SURGICAL HISTORY : Appendectomy. Renal transplant. ENCOUNTER: Initial ACUITY: 1 day PAIN SCALE: 2/10 LOCATION: cranial TECHNIQUE: Multiple contiguous axial images were obtained of the head. Using automated exposure control and adj ustment of the mA and/or kV according to patient size, radiation dose was kept as low as reasonably a chievable to obtain optimal diagnostic quality images. FINDINGS: CEREBRUM: Continued evolution of intraparenchymal hemorrhage in the right parieto-occipital cortex with associa christian edema. A defect extends to the posterior horn of the lateral ventricle but there is no significan t mass effect at this time. Prior MRI examination demonstrated findings concerning for mass in this r egion. No additional intra-or extra-axial fluid collections or mass are identified. Heredia-white matter differentiation is otherwise maintained. Ventricles are midline and normal in size given degree of a trophy. POSTERIOR FOSSA: The cerebellum and brainstem are intact. The 4th ventricle is midline. The cerebellopontine angle i s unremarkable. EXTRACRANIAL: The visualized portion of the orbits is intact. SKULL: The calvaria is intact. No evidence of skull fracture. Redemonstration of chronic right ethmoid and maxillary are sinusitis. Small mucous retention cyst in the left sphenoid sinus. There is also opacification of the inferior left mastoid air cells. CONCLUSION: 1. Evolving intraparenchymal hemorrhage in the right parieto-occipital mid convexity. Overall region of abnormality continues to improve in size and there is no significant mass effect at this time. Ple ase note that prior MRI examination demonstrated findings concerning for mass in this region with rec ommendation for contrast enhanced MRI imaging. Subsequent contrast enhanced CT examination also recom mend followup examination in in approximately October time frame. Contrast enhanced MRI short-term fol lowup is again recommended. 2. Left mastoiditis and chronic paranasal sinusitis. 3. Otherwise, no acute intracranial abnormality. Seymour Tavera MD on September 14, 2016 at 13:23 Board Certified Radiologist. This report was verified electronically.
[2016-09-14 13:56] LABS: AUTOMATED NEUTROPHIL # 1.8 TH/MM3 (1.8-7.7); BASOPHIL % 0.3 % (0.0-2.0); EOSINOPHIL # 0.9 TH/MM3 (0-0.4); EOSINOPHIL % 19.6 % (0.0-4.0); HEMATOCRIT 32.2 % (39.0-51.0); HEMO FLAGS DIFF FINAL; LYMPH % 26.8 % (9.0-44.0); LYMPHOCYTE # 1.3 TH/MM3 (1.0-4.8); MEAN CORPUSCULAR HEMOGLOBIN 30.9 PG (27.0-34.0); MEAN CORPUSCULAR HGB CONC 31.8 % (32.0-36.0); MONO % 17.2 % (0.0-8.0); NEUT % 36.1 % (16.0-70.0); PLATELET COUNT 166 TH/MM3 (150-450); RED BLOOD COUNT 3.31 MIL/MM3 (4.50-5.90); WHITE BLOOD COUNT 4.8 TH/MM3 (4.0-11.0)
[2016-09-14 14:03] LABS: CHLORIDE 105 MEQ/L (98-107); POTASSIUM 4.6 MEQ/L (3.5-5.1); SODIUM (NA) 143 MEQ/L (136-145)
[2016-09-14 14:07] LABS: ANION GAP 11 MEQ/L (5-15); BLOOD UREA NITROGEN 46 MG/DL (7-18)
[2016-09-14 14:10] LABS: ALT (GPT) 21 U/L (12-78); AST (GOT) 21 U/L (15-37); GLOMERULAR FILTRATION RATE 6 ML/MIN (>89)
[2016-09-14 14:11] LABS: TOTAL BILIRUBIN ADULT 0.3 MG/DL (0.2-1.0)
[2016-09-14 14:12] LABS: CREATINE KINASE 282 U/L (39-308)
[2016-09-14 14:13] LABS: ALKALINE PHOSPHATASE 185 U/L (45-117)
[2016-09-14] MEDS ORDERED: ZITHTAB PO (14:16)
[2016-09-14] MEDS ORDERED: TUSSSUS2 PO (14:16)
[2016-09-14] MEDS ORDERED: MEDR4PAK PO (14:16)
[2016-09-14 14:22] VITALS: BP 120/66; PULSE 75; RESP 16; O2SAT 99
[2016-09-14 14:25] LABS: CKMB 1.8 NG/ML (0.5-3.6)
[2016-09-14] MEDS ORDERED: DEXAMETHASONE SOD PHOS 20 MG/5 ML VIAL IM ONE (14:30)
[2016-09-14 14:57] LABS: APTT (PATIENT) 29.4 SEC (24.3-30.1); INTERNATIONAL NORMALIZED RATIO 0.9 RATIO; PROTHROMBIN TIME - PATIENT 10.3 SEC (9.8-11.6)
== END 2016-09-14 14:42 | disposition home or self-care (01) ==
LOC: PHED 11:55
DX: J98.01 Acute bronchospasm (principal); R09.1 Pleurisy; Z72.0 Tobacco use; I12.9 Hypertensive chronic kidney disease with stage 1 through stage 4 chronic kidney disease, or unspecified chronic kidney disease; E11.22 Type 2 diabetes mellitus with diabetic chronic kidney disease; N18.9 Chronic kidney disease, unspecified; K21.9 Gastro-esophageal reflux disease without esophagitis; Z79.4 Long term (current) use of insulin; I50.9 Heart failure, unspecified; I25.2 Old myocardial infarction
CPT/HCPCS: 70450; 71010; 80053; 82550; 82552; 83880; 84484; 85025; 85610; 85730; 87804; 94640; 94664; J1100; J7613; 96372